=== PATIENT | female | born 2000 | race Two or more races ===

== ENCOUNTER 2024-10-29 21:12 | Emergency (ER) | payer MEDICAID, SELFPAY ==
[2024-10-29 21:12] VITALS: BMI 44.6
[2024-10-29 21:29] VITALS: BP 152/90; PULSE 92; RESP 18; TEMP 37.7; O2SAT 96
--- NOTE | 2024-10-29 21:31 | XR_ITS ---
Examination: PA lateral chest 2 views Technique: Upright PA lateral chest 2 views Exam date and time: October 29, 2024 2150 hrs. Comparison April 10, 2022 Indications: Chest pain today. Findings: Normal heart size Suspicious for early pneumonia left base No pulmonary edema Impression: Suspicious for early pneumonia left base
--- NOTE | 2024-10-29 21:31 | PD.EDRME ---
Rapid Medical Screening Exam RME Arrival date/time: 10/29/24 21:12 24 year old female preent to ED for c/o of chest/arm pain for 1 day I have greeted and performed a focused initial assessment of this patient. A comprehensive ED assessment and evaluation of the patient, analysis of all test results, and completion of the medical decision making process will be conducted by additional ED providers. Chief Complaint: Extremity Problem,Nontraumatic Time Seen by Provider: 10/29/24 21:29 Vital signs: Vital Signs Temperature 100 F 10/29/24 21:29 Pulse Rate 92 10/29/24 21:29 Respiratory Rate 18 10/29/24 21:29 Blood Pressure 152/90 H 10/29/24 21:29 Pulse Oximetry (%) 96 10/29/24 21:29 Oxygen Delivery Method Room Air 10/29/24 21:29
[2024-10-29 22:21] LABS: Basophils # (Auto) 0.1 Thou/mm3 (0.0-0.2); Basophils % (Auto) 1 % (0-2.5); Eosinophils # (Auto) 0.2 Thou/mm3 (0.0-0.5); Eosinophils % (Auto) 1 % (0-10); Hematocrit 38.6 % (36.0-46.0); Hemoglobin 13.1 g/dL (12.0-16.0); Immature Granulocytes % (Auto) 0 % (0-0); Immature Granulocytes Auto 0.04 Thou/mm3 (0.00-0.00); Lymphocytes # (Auto) 2.4 Thou/mm3 (1.0-4.8); Lymphocytes % (Auto) 20 % (10-50); Mean Corpuscular HGB Conc 33.9 g/dl (31.0-37.0); Mean Corpuscular Hemoglobin 27.8 pg (25.0-35.0); Mean Corpuscular Volume 82 fL (80-100); Monocytes # (Auto) 1.3 Thou/mm3 (0.0-0.8); Monocytes % (Auto) 10 % (0-12); Neutrophils # (Auto) 8.2 Thou/mm3 (1.8-7.7); Neutrophils % (Auto) 68 % (37-80); Nucleated Red Blood Cell % 0 /100 WBC (0); Platelet Count 223 Thou/mm3 (140-440); RDW Standard Deviation 37.6 fL (36.4-46.3); Red Blood Count 4.71 Miln/mm3 (4.00-5.20); White Blood Count 12.1 Thou/mm3 (3.6-11.0)
[2024-10-29 22:31] LABS: Sed Rate (ESR) 51 mm/hr (0-20)
[2024-10-29 22:41] LABS: HCG,Qualitative Serum Negative
[2024-10-29 22:54] LABS: Alanine Aminotransferase 44 U/L (10-49); Albumin, Serum 4.3 gm/dL (3.5-5.0); Albumin/Globulin Ratio 1.3 (1.2-2.2); Alkaline Phosphatase 58 U/L (46-116); Anion Gap 8 (7-16); Aspartate Amino Transferase 25 U/L (0-34); BUN/Creatinine Ratio 16 Ratio (12-20); Bilirubin,Total 0.5 mg/dL (0.3-1.2); Blood Urea Nitrogen 13 mg/dL (9-23); Calcium 9.9 mg/dL (8.3-10.6); Calcium (Corrected) 9.9 mg/dL (8.5-10.1); Carbon Dioxide 25.6 mMol/L (20.0-31.0); Chloride 102 mMol/L (98-107); Creatinine (Component) 0.8 mg/dL (0.6-1.3); Estimated Creatinine Clearance 136.9 mL/min (>60); Globulin 3.4 gm/dL (2.3-3.5); Glucose 114 mg/dL (74-106); Lipase 58 U/L (12-53); Osmolality,Calculated 273 (275-295); Potassium 3.7 mMol/L (3.4-5.1); Sodium 136 mMol/L (136-145); Total Protein 7.7 gm/dL (5.7-8.2); Troponin I < 0.002 ng/mL (0.0-0.045); eGFR > 60 See Note
[2024-10-29 23:56] VITALS: BP 135/78; PULSE 94; RESP 19; TEMP 37.6; O2SAT 99
--- NOTE | 2024-10-30 00:31 | EDNOTE_ITS ---
ED Extremity Problem RME/HPI General Chief complaint: Extremity Problem,Nontraumatic Stated complaint: L ARM RIB PAIN X 2 DAYS Time Seen by Provider: 10/29/24 21:29 Arrival date/time: 10/29/24 21:12 Limitations: no limitations RME / HPI RME / HPI Narrative: 10/29/24 21:12 24 year old female preent to ED for c/o of chest/arm pain for 1 day I have greeted and performed a focused initial assessment of this patient. A comprehensive ED assessment and evaluation of the patient, analysis of all test results, and completion of the medical decision making process will be conducted by additional ED providers. ------- Dr. Montenegro's Main ED Evaluation: 24yo female presents to the ED for a chief complaint of left-sided chest pain x 1 day. Patient states the pain radiates to her left arm. She denies any cough, fever, chills, shortness of breath or any other associated symptoms. She denies any possibility of being . She denies being on control. No known allergies. Related Data Home Medications ?Medication ?Instructions ?Recorded ?Confirmed vits no.124-ferrous fum 1 tab PO QDAY 11/04/19 02/04/21 27 mg iron-folic acid 800 mcg tablet ( Vitamin) Previous Rx's ?Medication ?Instructions ?Recorded acetaminophen 650 mg 650 mg PO Q8H PRN pain #14 tabs 02/06/21 tablet,extended release (Tylenol 8 Hour) hydrocodone 5 mg-acetaminophen 325 1 tab PO Q8H PRN pain #7 tabs 02/06/21 mg tablet apixaban 5 mg (74 tabs) tablets in 5 mg PO BID #74 tabs 10/30/24 a dose pack (Eliquis DVT-PE Treat 30D Start) Allergies Allergy/AdvReac Type Severity Reaction Status Date / Time No Known Allergies Allergy Verified 04/10/22 16:59 Review of Systems Review of Systems Systems Reviewed: All systems reviewed, normal except as documented ED Exam General Limitations: Present no limitations General appearance: Present alert and in no apparent distress Head Head exam: Present atraumatic Eye Eye exam: Present normal appearance, PERRL and EOMI ENT ENT exam: Present normal exam, normal oropharynx and mucous membranes moist Neck Neck exam: Present normal inspection, full ROM and trachea midline Chest Chest inspection: Present normal inspection and symmetric chest wall rise Respiratory Respiratory exam: Present normal lung sounds bilaterally; Absent wheezes Cardiovascular Cardiovascular exam: Present regular rate, normal rhythm and normal heart sounds Abdominal Exam Abdominal exam: Present soft and normal bowel sounds Extremities Exam Extremities exam: Present normal inspection and full ROM Back Exam Back exam: Present normal inspection and full ROM Neurological Exam Neurological exam: Present alert, oriented X3 and CN II-XII intact Psychiatric Psychiatric exam: Present normal affect and normal mood Skin Skin exam: Present warm, dry, intact and normal color Course Course Course Narrative: CXR is ordered for determining the etiology of chest pain. Quality Measures none Orders Category Date Time Status Bedside COVID-19 Antigen Test NOW Care 10/30/24 01:[address] Screening NOW Care 10/30/24 00:31 Completed Insert IV STAT Care 10/30/24 00:[address] angio chest Stat Exams 10/30/24 00:31 Taken XR chest 2V Stat Exams 10/29/24 21:31 Completed CBC Stat Lab 10/29/24 22:06 Completed CMP [Comprehensive Metabolic Panel] Stat Lab 10/29/24 22:06 Completed CRP [C-Reactive Protein] Stat Lab 10/29/24 22:06 Completed ESR [Sed Rate (ESR)] Stat Lab 10/29/24 22:06 Completed HCG,Qualitative Serum Stat Lab 10/29/24 22:06 Completed Lipase Stat Lab 10/29/24 22:06 Completed PT [Prothrombin Time with INR] Stat Lab 10/30/24 00:41 Completed PTT [Partial Thromboplastin Time] Stat Lab 10/30/24 00:41 Completed Troponin I Stat Lab 10/29/24 22:06 Completed Troponin I Stat Lab 10/30/24 00:41 Completed Acetaminophen Tab [Tylenol Tab] Med 10/30/24 01:57 Discontinued 975 mg PO X1 ONE Apixaban [Eliquis] Med 10/30/24 01:52 Discontinued 10 mg PO X1 ONE Vital Signs Vital signs: Vital Signs Temperature 100 F 10/29/24 21:29 Pulse Rate 92 10/29/24 21:29 Respiratory Rate 18 10/29/24 21:29 Blood Pressure 152/90 H 10/29/24 21:29 Pulse Oximetry (%) 96 10/29/24 21:29 Oxygen Delivery Method Room Air 10/29/24 21:29 Pulse ox is 96% on room air, which is normal according to my interpretation. Extremity Problem MDM Narrative MDM Narrative:: Differential diagnosis close PE, pulmonary infarct, pneumonia, pleural effusion. Patient data External records reviewed:: [facility] previous records (Per chart review, patient has no relevant previous ED visits.) Clinical information provided by:: patient Social determinants that could affect healthcare access:: none Patient has the following chronic illnesses:: none How is presenting disease/condition affected by chronic disease/condition?: no chronic disease Evaluation data The following diagnostics were reviewed and interpreted by me:: lab results and radiology exam(s) Lab and/or radiology exams considered but not ordered:: none Interpretation Summary: WBC count is elevated at 12.1, CMP is normal, Troponin is negative, HCG is negative, according to my interpretation. ----- [facility] Report Signed Patient: CARLITOS CÁRDENAS Record#: [id number] Birthdate: 2000 Age/Sex: 24 / F Location: [facility] Attending Dr: Ordering Physician: Teodoro Colon PA-C Date of Service: 10/29/24 Procedure(s): XR chest 2V Accession Number(s): [id number] cc: Obed Stanford MD; Thierno Alonso MD; Teodoro Colon PA-C~ Examination: PA lateral chest 2 views Technique: Upright PA lateral chest 2 views Exam date and time: October 29, 2024 2150 hrs. Comparison April 10, 2022 Indications: Chest pain today. Findings: Normal heart size Suspicious for early pneumonia left base No pulmonary edema Impression: Suspicious for early pneumonia left base Dictated By: Thierno Alonso MD Signed By: <Electronically signed by Thierno Alonso MD in OV> 10/29/24 2256 ------ [facility] Preliminary Report Draft Patient: CARLITOS CÁRDENAS [facility]. Record#: [id number] Birthdate: 2000 Age/Sex: 24 / F Location: [facility] Attending Dr: Ordering Physician: Date of Service: Procedure(s): Accession Number(s): cc: ~ CT angiogram of the chest with intravenous contrast (axial sections with sagittal and coronal reformats) October 30, 2024 at 0049 hours Clinical History: 24-year-old with pleuritic chest pain. Technique:Helical axial sections with sagittal and coronal reformats of the chest were obtained with intravenous contrast. Iterative reconstruction technique was employed to reduce patient radiation exposure. MIP reconstructed images were also provided. Comparison: None available at the time of this report. Findings: Pulmonary emboli in the subsegmental branches of the left lower lobe pulmonary artery. The left ventricle measures 3.9 cm, the right ventricle measures 3.7 cm. Dilated left atrium. The mediastinum demonstrates no evidence of mass or lymphadenopathy. The thoracic aorta is unremarkable. There is no pericardial effusion. Consolidation in the left lower lobe. No evidence of pleural effusion or pneumothorax. The osseous structures are unremarkable. Liver steatosis. Impression: 1. Pulmonary emboli in the subsegmental branches of the left lower lobe pulmonary artery without CT evidence of increased pulmonary pressures. 2. Left lower lobe consolidation, infarct versus pneumonia. 3. Dilated left atrium. 4. Liver steatosis. Discussion Details: Results verbally communicated to : Dr. Martinez at 01:18 AM 10/30/2024 Report Electronically Signed By: Claudio Coombs 10/30/2024 1:24:55 AM [EST] Medications / Prescriptions Medications or Prescriptions considered but not ordered:: none Medication administrations:: Medication Administration History Discontinued Medications Acetaminophen (Acetaminophen 325 Mg Tablet) 975 mg PO X1 ONE Stop: 10/30/24 01:58 Last Admin: 10/30/24 02:04 Dose: 975 mg Documented By: WAQAS Apixaban (Apixaban 2.5 Mg Tablet) 10 mg PO X1 ONE Stop: 10/30/24 01:53 Last Admin: 10/30/24 02:04 Dose: 10 mg Documented By: WAQAS see above, if any Consultations Consultation(s) initiated? (list below): No Consultation #1 (Physician, Specialty, Details): na Diagnosis Extremity Problem Differential Diagnosis: other Most likely diagnosis given after review of the tests above:: see below Admission Indicated Admission indicated?: not indicated Explain why admission is indicated or not indicated:: Hemodynamically stable Admission Request Was there a request for admission?: No Disposition Plan Disposition Plan: Discharge Discharge Attestation Discharge Attestation: The patient and all family members were given an opportunity to ask questions and understood the discharge instructions. Discharge instructions specifically effects, indications for sooner follow up or return to the emergency department, and the expected course of current diagnosis. Patient condition: Stable Discharge Plan Plan Patient Disposition: HOME (Self Care) Patient condition on transfer: Stable Prescriptions/Referrals Prescriptions/Med Rec: Ricco Rm DVT-PE Treat 30D Start 5 mg (74 tabs) tablets,dose pack 5 mg PO BID Qty: 74 0RF No Action Vitamin 27 mg iron- 800 mcg Tablet 1 tab PO QDAY hydrocodone-acetaminophen 5-325 mg tablet 1 tab PO Q8H MDD 3 PRN (Reason: pain) Qty: 7 0RF acetaminophen [Tylenol 8 Hour] 650 mg tablet extended release 650 mg PO Q8H MDD 4 PRN (Reason: pain) Qty: 14 0RF Referrals: Obed Stanford MD [Primary Care Provider] - 11/01/24 Problem List Clinical Impression: Pulmonary embolism Patient/Caregiver Discharge Instructions Education Materials: Embolism Pulmonary Dc Additional Instructions: Will need to stop the control pills since this will continue to put her at risk for continued clots. No smoking. You want to avoid any type of nonsteroidal or Aleve, Motrin, ibuprofen, or Naprosyn, while you are on the blood thinner. Return tomorrow at 11 AM to the emergency department if you are unable to fill your blood thinner medication at the pharmacy so that you can get your next dose in 12 hours. Return sooner if you are having increasing pain, shortness of breath, worsening symptoms, or any other concerns. See your doctor next 48 to 72 hours. If you cannot get into your primary care's office you can follow-up at the resident internal medicine clinic at [facility] [address] the phone number is [phone]. You will need to be on this medication for the next 3 to 6 months so please follow-up with your primary care physician so that you get your next months prescription. Print Language: Upper Sorbian Stand Alone Forms: [facility] Award Info., Patient Portal Info Letter
--- NOTE | 2024-10-30 00:31 | XR_ITS ---
Examination: CTA chest with intravenous contrast 2-D reconstructions 3-D reconstructions, vascular Date and time of exam: October 30, 2024 0049 hrs. Indications: Onset chest pain left rib pain beginning yesterday CTDI: vol (mGy) 32 DLP: (mGycm) 504 Technique: Multiple axial sections of the thorax have been obtained. 3 mm slice thickness, from below the hemidiaphragms to above the apices of the lungs. Mediastinal and lung density settings have been obtained. 2-D sagittal and coronal reconstructions. 3-D angiographic renderings, 3-D volume renderings, 3D post processing, vascular maximum intensity projections obtained. Contrast administered is 100 cc Isovue-370 intravenous. Low dose protocols were performed. One or more of the following dose reduction techniques were used; automated exposure control, adjustment of the mA and/or KV according to patient size, use of iterative reconstruction technique. Findings: No thoracic aortic aneurysmal dilatation Left lower lobe pulmonary artery emboli, for instance axial image 93 Mild enlargement left atrium left ventricle Pneumonia versus pulmonary infarct left base Diffuse fatty liver liver mildly irregular in contour No gallstones Spleen not enlarged No pancreatic mass Impression: Positive for pulmonary artery emboli left lower lobe Pneumonia versus pulmonary infarct left base
[2024-10-30 01:15] LABS: Partial Thromboplastin Time 29.3 Seconds (22.0-36.0); Prothrombin Time 11.2 Seconds (9.0-12.2)
[2024-10-30 01:17] LABS: Troponin I < 0.002 ng/mL (0.0-0.045)
--- NOTE | 2024-10-30 01:25 | PRELIM_ITS ---
CT angiogram of the chest with intravenous contrast (axial sections with sagittal and coronal reforma ts) October 30, 2024 at 0049 hours Clinical History: 24-year-old with pleuritic chest pain. Techniqu e:Helical axial sections with sagittal and coronal reformats of the chest were obtained with intraven ous contrast. Iterative reconstruction technique was employed to reduce patient radiation exposure. MIP reconstructed images were also provided. Comparison: None available at the time of this report.Fi ndings:Pulmonary emboli in the subsegmental branches of the left lower lobe pulmonary artery.The left ventricle measures 3.9 cm, the right ventricle measures 3.7 cm.Dilated left atrium.The mediastinum d emonstrates no evidence of mass or lymphadenopathy. The thoracic aorta is unremarkable. There is no p ericardial effusion. Consolidation in the left lower lobe. No evidence of pleural effusion or pneumot horax.The osseous structures are unremarkable.Liver steatosis.Impression:1. Pulmonary emboli in the s ubsegmental branches of the left lower lobe pulmonary artery without CT evidence of increased pulmona ry pressures.2. Left lower lobe consolidation, infarct versus pneumonia.3. Dilated left atrium.4. Mely er steatosis.Discussion Details: Results verbally communicated to : Dr. Martinez at 01:18 AM 024 Report Electronically Signed By: Claudio Coombs 10/30/2024 1:24:55 AM [EST]
[2024-10-30 01:51] VITALS: BP 140/81; PULSE 98; RESP 18; TEMP 37.4; O2SAT 100
[2024-10-30 01:57] LABS: C-Reactive Protein 8.3 mg/dL (0.0-0.9)
[2024-10-30] MEDS: APIXABAN 2.5 MG TABLET 10 MG PO (02:04)
[2024-10-30] MEDS: ACETAMINOPHEN 325 MG TABLET 975 MG PO (02:04)
== END 2024-10-30 02:17 | disposition home or self-care (01) ==
PROVIDERS: Physician Assistant; Emergency Provider Emergency Medicine; PCP Family Medicine
DX: I26.99 Other pulmonary embolism without acute cor pulmonale (principal); I51.7 Cardiomegaly; K76.0 Fatty (change of) liver, not elsewhere classified; Z79.01 Long term (current) use of anticoagulants
CPT/HCPCS: 36415; 71046; 71275; 80053; 83690; 84484; 84703; 85025; 85610; 85652; 85730; 86140; 87811; 99285; A4649; Q9967; A9270

== ENCOUNTER 2025-01-30 05:52 | Emergency (ER) | payer MEDICAID, SELFPAY ==
[2025-01-30 05:53] VITALS: BMI 44.6
[2025-01-30 06:05] VITALS: BP 152/75; PULSE 95; RESP 17; TEMP 36.8; O2SAT 99
--- NOTE | 2025-01-30 06:17 | PD.EDRME ---
Rapid Medical Screening Exam RME Arrival date/time: 01/30/25 05:52 24-year-old female currently on Eliquis for a PE presents for concerns of rectal bleeding x 3 weeks Chief Complaint: Urogenital-Female Time Seen by Provider: 01/30/25 06:10 Vital signs: Vital Signs Temperature 98.2 F 01/30/25 06:05 Pulse Rate 95 01/30/25 06:05 Respiratory Rate 17 01/30/25 06:05 Blood Pressure 152/75 H 01/30/25 06:05 Pulse Oximetry (%) 99 01/30/25 06:05 Oxygen Delivery Method Room Air 01/30/25 06:05
[2025-01-30 06:33] LABS: Basophils # (Auto) 0.1 Thou/mm3 (0.0-0.2); Basophils % (Auto) 1 % (0-2.5); Eosinophils # (Auto) 0.2 Thou/mm3 (0.0-0.5); Eosinophils % (Auto) 3 % (0-10); Hematocrit 43.6 % (36.0-46.0); Hemoglobin 14.4 g/dL (12.0-16.0); Immature Granulocytes % (Auto) 0 % (0-0); Immature Granulocytes Auto 0.01 Thou/mm3 (0.00-0.00); Lymphocytes # (Auto) 2.3 Thou/mm3 (1.0-4.8); Lymphocytes % (Auto) 27 % (10-50); Mean Corpuscular Hemoglobin 27.5 pg (25.0-35.0); Mean Corpuscular Volume 83 fL (80-100); Monocytes # (Auto) 0.6 Thou/mm3 (0.0-0.8); Monocytes % (Auto) 7 % (0-12); Neutrophils # (Auto) 5.2 Thou/mm3 (1.8-7.7); Neutrophils % (Auto) 62 % (37-80); Nucleated Red Blood Cell % 0 /100 WBC (0); Platelet Count 278 Thou/mm3 (140-440); RDW Standard Deviation 40.4 fL (36.4-46.3); Red Blood Count 5.23 Miln/mm3 (4.00-5.20); White Blood Count 8.4 Thou/mm3 (3.6-11.0)
[2025-01-30 06:47] LABS: Partial Thromboplastin Time 29.9 Seconds (22.0-36.0)
[2025-01-30 06:52] LABS: Alanine Aminotransferase 34 U/L (10-49); Albumin, Serum 4.2 gm/dL (3.5-5.0); Albumin/Globulin Ratio 1.3 (1.2-2.2); Alkaline Phosphatase 61 U/L (46-116); Anion Gap 9 (7-16); Aspartate Amino Transferase 26 U/L (0-34); BUN/Creatinine Ratio 16 Ratio (12-20); Bilirubin,Total 0.5 mg/dL (0.3-1.2); Blood Urea Nitrogen 11 mg/dL (9-23); Calcium 9.3 mg/dL (8.3-10.6); Calcium (Corrected) 9.3 mg/dL (8.5-10.1); Carbon Dioxide 23.6 mMol/L (20.0-31.0); Chloride 105 mMol/L (98-107); Creatinine (Component) 0.7 mg/dL (0.6-1.3); Estimated Creatinine Clearance 156.5 mL/min (>60); Globulin 3.2 gm/dL (2.3-3.5); Glucose 113 mg/dL (74-106); Lipase 48 U/L (12-53); Osmolality,Calculated 276 (275-295); Potassium 3.8 mMol/L (3.4-5.1); Sodium 138 mMol/L (136-145); Total Protein 7.4 gm/dL (5.7-8.2); eGFR > 60 See Note
[2025-01-30 07:32] LABS: Collection Type, Urine Clean Catch
--- NOTE | 2025-01-30 07:43 | PC.NURSE ---
Patient presents to ER with complaint of rectal bleeding / pain x 3 wks. States pain is 9/10 and especially painful after getting up from sitting down. Hx of pulmonary embolism in October and is currently prescribed Eliquis.
[2025-01-30 07:53] VITALS: BP 112/82; PULSE 85; RESP 18; TEMP 36.9; O2SAT 95
--- NOTE | 2025-01-30 07:59 | PD.EDADULT ---
ED General RME/HPI General Chief complaint: Urogenital-Female Stated complaint: RECTAL BLEEDING Time Seen by Provider: 01/30/25 06:10 Arrival date/time: 01/30/25 05:52 Limitations: no limitations RME / HPI RME / HPI narrative: 01/30/25 05:52 24-year-old female currently on Eliquis for a PE presents for concerns of rectal bleeding x [address] GROVES MAIN ED EVALUATION: 24 year old female with history of PE (dx 10/2024) on Eliquis presents to the ED for evaluation of rectal bleeding and pain beginning 3 weeks ago. Rectal pain described as dull aching in sensation without known modifying factors, rating as mild. States the bleeding is light and only present while wiping, occurring with every bowel movement since onset. Denies there being any blood in toilet bowl or stool. Denies any history of hemorrhoids. Denies any dizziness, light headed sensation, shortness of breath, abdominal pain, or other associated symptoms. Patient mentioned she has consulted with PCP who performed xray's and told there were no acute findings. Hx of previous pregnancies, x2, . Related Data Home Medications ?Medication ?Instructions ?Recorded ?Confirmed vits no.124-ferrous fum 1 tab PO QDAY 11/04/19 02/04/21 27 mg iron-folic acid 800 mcg tablet ( Vitamin) Previous Rx's ?Medication ?Instructions ?Recorded acetaminophen 650 mg 650 mg PO Q8H PRN pain #14 tabs 02/06/21 tablet,extended release (Tylenol 8 Hour) hydrocodone 5 mg-acetaminophen 325 1 tab PO Q8H PRN pain #7 tabs 02/06/21 mg tablet apixaban 5 mg (74 tabs) tablets in 5 mg PO BID #74 tabs 10/30/24 a dose pack (Eliquis DVT-PE Treat 30D Start) Allergies Allergy/AdvReac Type Severity Reaction Status Date / Time No Known Allergies Allergy Verified 04/10/22 16:59 Review of Systems Review of Systems Narrative Review of Systems: GEN: No fever, no chills, no weight loss EYES: No discharge, no visual changes, no pain HEENT: No ear pain, no congestion, no sore throat PULM: No shortness of breath, no cough, no congestion CV: No chest pain, no dyspnea on exertion, no palpitations GI: No nausea, no vomiting, no diarrhea, no pain, no constipation, +rectal bleeding and pain : No frequency, no urgency, no dysuria MUSC/SKEL: No joint pain, no back pain SKIN: No rash HEME/LYMPH: On anticoagulation therapy NEURO: No weakness, no headache Past Medical History Past Medical History CARDIAC: Positive Hypertension RESPIRATORY: Positive Respiratory Disorders and Pulmonary Embolism (on eliquis) GASTROINTESTINAL: Positive Gastrointestinal Disorders and Gastrointestinal Bleed (bleeding from rectum) REPRODUCTIVE: Positive Previous Pregnancies OTHER HISTORY: Positive Hospitalization Surgical History SURGICAL: Positive Section Social History SMOKING STATUS: Never smoker ED Exam General Limitations: Present no limitations General appearance: Present alert, in no apparent distress and obese Head Head exam: Present atraumatic, normocephalic and normal inspection Eye Eye exam: Present normal appearance and EOMI ENT ENT exam: Present normal exam and normal oropharynx Neck Neck exam: Present normal inspection Chest Chest inspection: Present normal inspection and symmetric chest wall rise Respiratory Respiratory exam: Present normal lung sounds bilaterally Cardiovascular Cardiovascular exam: Present regular rate, normal rhythm and normal heart sounds Abdominal Exam Abdominal exam: Present soft and normal bowel sounds Rectal Exam Rectal exam: Present other (anal bridge without lesions, digital exam was not performed. There was bleeding from the vaginal area, dark red and a mild amount (patient states she is on her period) ) Extremities Exam Extremities exam: Present normal inspection and full ROM Back Exam Back exam: Present normal inspection and full ROM Neurological Exam Neurological exam: Present alert, oriented X3 and CN II-XII intact Psychiatric Psychiatric exam: Present normal affect and normal mood Skin Skin exam: Present warm, dry, intact and normal color Course Quality Measures none Orders Category Date Time Status CBC Stat Lab 01/30/25 06:27 Completed Comprehensive Metabolic Panel Stat Lab 01/30/25 06:27 Completed HCG Qualitative,Urine Stat Lab 01/30/25 06:45 Completed Lipase Stat Lab 01/30/25 06:27 Completed Partial Thromboplastin Time Stat Lab 01/30/25 06:27 Completed Prothrombin Time with INR Stat Lab 01/30/25 06:27 Completed UA, C/S IF [Urinalysis, C/S if Indicated] Stat Lab 01/30/25 06:45 Completed Vital Signs Vital signs: Vital Signs Temperature 98.2 F 01/30/25 06:05 Pulse Rate 95 01/30/25 06:05 Respiratory Rate 17 01/30/25 06:05 Blood Pressure 152/75 H 01/30/25 06:05 Pulse Oximetry (%) 99 01/30/25 06:05 Oxygen Delivery Method Room Air 01/30/25 06:05 Pulse ox is 99% on room air which is adequate. [facility] Patient data External records reviewed:: [facility] previous records (I reviewed ED visit on 10/30/2024 ) Clinical information provided by:: patient Social determinants that could affect healthcare access:: none Patient has the following chronic illnesses:: PE (dx 10/2024) on Eliquis How is presenting disease/condition affected by chronic disease/condition?: uneffected by Evaluation data The following diagnostics were reviewed and interpreted by me:: lab results Lab and/or radiology exams considered but not ordered:: None Interpretation Summary: H/H 14.4/43/6 PT/PTT within normal range Medications Medications considered but not ordered:: None Medication administrations:: None Consultations Consultation(s) initiated? (list below): No Diagnosis Differential Diagnosis ED Complaint MDM: rectal bleeding, anal fisure, hemorroids, GIB Most likely diagnosis given after review of the tests above:: Rectal bleeding Admission Indicated Admission indicated?: not indicated Explain why admission is indicated or not indicated:: Patient does not meet admission criteria Admission Request Was there a request for admission?: No Disposition Plan Disposition Plan: Discharge Discharge Attestation Discharge Attestation: The patient and all family members were given an opportunity to ask questions and understood the discharge instructions. Discharge instructions specifically effects, indications for sooner follow up or return to the emergency department, and the expected course of current diagnosis. Patient condition: Stable Medical Decision Making [facility] Narrative MDM Narrative: Patient is a 24 year old female with history of pulmonary embolism that was diagnosed 10/2024 and currently on Eliquis. She presented to the ED for rectal bleeding beginning 3 weeks ago. Reported the amount of bleeding is light, present with every bowel movement and only noted to be on the toilet paper while wiping. CBC, CMP, PT/PTT, UA were performed. H/H and PT/PTT are within normal limits. UA shows 1,047 RBC that is due to her vaginal bleeding. Given the normal hemoglobin and few episodes of rectal bleeding though we could not see he cause, will have the patient continue her Eliquis. It may be possible there are internal hemorrhoids or fisures. I advised the patient follow up with her PCP for further evaluation and possible GI work up. Patient is in agreement with plan. Differential Diagnosis Differential Diagnosis: rectal bleeding, anal fisure, hemorroids, GIB Lab Data 01/30/25 06:27 01/30/25 06:27 Labs: Lab Results 01/30/25 01/30/25 Range/Units 06:27 06:45 WBC 8.4 (3.6-11.0) Thou/mm3 RBC 5.23 H (4.00-5.20) Miln/mm3 Hgb 14.4 (12.0-16.0) g/dL Hct 43.6 (36.0-46.0) % MCV 83 (80-100) fL MCH 27.5 (25.0-35.0) pg MCHC 33.0 (31.0-37.0) g/dl RDW Std Deviation 40.4 (36.4-46.3) fL Plt Count 278 (140-440) Thou/mm3 Neut % (Auto) 62 (37-80) % Lymph % (Auto) 27 (10-50) % [place] % (Auto) 7 (0-12) % Eos % (Auto) 3 (0-10) % Baso % (Auto) 1 (0-2.5) % Neut # (Auto) 5.2 (1.8-7.7) Thou/mm3 Lymph # (Auto) 2.3 (1.0-4.8) Thou/mm3 [place] # (Auto) 0.6 (0.0-0.8) Thou/mm3 Eos # (Auto) 0.2 (0.0-0.5) Thou/mm3 Baso # (Auto) 0.1 (0.0-0.2) Thou/mm3 Immature Gran # (Auto) 0.01 H (0.00-0.00) Thou/mm3 Absolute Nucleated RBC 0.00 (0.00-0.00) Thou/mm3 Immature Gran % 0 (0-0) % Nucleated RBC % 0 (0) /100 WBC PT 11.0 (9.0-12.2) Seconds INR 1.0 (0.9-1.3) APTT 29.9 (22.0-36.0) Seconds Sodium 138 (136-145) mMol/L Potassium 3.8 (3.4-5.1) mMol/L Chloride 105 (98-107) mMol/L Carbon Dioxide 23.6 (20.0-31.0) mMol/L Anion Gap 9 (7-16) BUN 11 (9-23) mg/dL Creatinine 0.7 (0.6-1.3) mg/dL Estim Creat Clear Calc 156.5 (>60) mL/min eGFR > 60 (60 - ) See Note BUN/Creatinine Ratio 16 (12-20) Ratio Glucose 113 H (74-106) mg/dL Calculated Osmolality 276 (275-295) Calcium 9.3 (8.3-10.6) mg/dL Corrected Calcium 9.3 (8.5-10.1) mg/dL Total Bilirubin 0.5 (0.3-1.2) mg/dL AST 26 (0-34) U/L ALT 34 (10-49) U/L Alkaline Phosphatase 61 (46-116) U/L Total Protein 7.4 (5.7-8.2) gm/dL Albumin 4.2 (3.5-5.0) gm/dL Globulin 3.2 (2.3-3.5) gm/dL Albumin/Globulin Ratio 1.3 (1.2-2.2) Lipase 48 (12-53) U/L Ur Collection Type Clean Catch Urine Color [place] (Lt Yel-Yel) Urine Clarity Turbid A (Clear/Hazy) Urine pH 5.5 (5.0-7.0) Ur Specific [place] 1.024 (1.001-1.035) Urine Protein 1+ A (Neg - Trace) Urine Glucose (UA) Negative (Negative) Urine Ketones Negative (Negative) Urine Blood 3+ A (Negative) Urine Nitrite Negative (Negative) Urine Bilirubin Negative (Negative) Urine Urobilinogen (Auto) Negative (0.0-1.0) mg/dL Ur Leukocyte Esterase Negative (Negative) Urine RBC 1047 H (0-3) /hpf Urine WBC 8 H (0-5) /hpf Ur Squamous Epith Cells 2 (0-5) /hpf Urine Bacteria Rare (None) Ur Culture Indicated? Not Indicated Urine HCG, Qual Negative Discharge Plan Plan Patient Disposition: HOME (Self Care) Prescriptions/Referrals Prescriptions/Med Rec: No Action Vitamin 27 mg iron- 800 mcg Tablet 1 tab PO QDAY hydrocodone-acetaminophen 5-325 mg tablet 1 tab PO Q8H MDD 3 PRN (Reason: pain) Qty: 7 0RF acetaminophen [Tylenol 8 Hour] 650 mg tablet extended release 650 mg PO Q8H MDD 4 PRN (Reason: pain) Qty: 14 0RF Eliquis DVT-PE Treat 30D Start 5 mg (74 tabs) tablets,dose pack 5 mg PO BID Qty: 74 0RF Referrals: Obed Stanford MD [Primary Care Provider] - In 1 week Problem List Clinical Impression: Rectal bleeding Patient/Caregiver Discharge Instructions Education Materials: Understanding Rectal Bleeding Additional Instructions: Follow up with your PCP within 1-2 days for further evaluation and consider a GI work-up. Return if your symptoms worsen. Print Language: French Stand Alone Forms: Le[facility] Award Info., Patient Portal Info Letter
[2025-01-30 08:06] LABS: Bacteria,Urine Rare; Bilirubin,Urine Negative (Negative); Blood,Urine 3+ (Negative); Clarity,Urine Turbid (Clear/Hazy); Culture Indicated,Urine Not Indicated; Glucose, Urine Negative (Negative); HCG Qualitative,Urine Negative; Ketones,Urine Negative (Negative); Leukocyte Esterase,Urine Negative (Negative); Nitrite,Urine Negative (Negative); PH,Urine 5.5 (5.0-7.0); Protein,Urine 1+ (Neg - Trace); RBC,Urine 1047 /hpf (0-3); Specific Gravity,Urine 1.024 (1.001-1.035); Squamous Epithelial Cell,Urine 2 /hpf (0-5); Urobilinogen,Urine Negative mg/dL (0.0-1.0); WBC,Urine 8 /hpf (0-5)
[2025-01-30 08:37] LABS: Color,Urine Amber (Lt Yel-Yel)
[2025-01-30 09:00] VITALS: BP 144/95; PULSE 80; RESP 16; TEMP 36.9; O2SAT 97
[2025-01-30 09:12] VITALS: BP 144/95; PULSE 80; RESP 16; TEMP 36.9; O2SAT 97
== END 2025-01-30 09:12 | disposition home or self-care (01) ==
PROVIDERS: Nurse Practitioner Primary Care; Emergency Provider Family Medicine; PCP Family Medicine
DX: K62.5 Hemorrhage of anus and rectum (principal); Z86.711 Personal history of pulmonary embolism
CPT/HCPCS: 36415; 80053; 81001; 81025; 83690; 85025; 85610; 85730; 99283

== ENCOUNTER 2025-03-19 14:53 | Outpatient (AMB) | payer MEDICAID, SELFPAY ==
[2025-03-19 15:07] VITALS: BP 128/84; PULSE 96; RESP 18; TEMP 36.8; O2SAT 97; BMI 45.0
--- NOTE | 2025-03-19 15:07 | OBCLNT_ITS ---
Vital Signs 03/19/25 15:07 Height 1.63 m Height Method Stated Weight 119.068 kg Weight Measurement Method Standing Scale BMI 45.0 BP 128/84 Blood Pressure Source Automatic Cuff Blood Pressure Location Left Upper Arm Position Sitting Respiration 18 Pulse 96 Pulse Source Monitor Temp 98.2 F Temp Source Oral Pulse Oximetry (%) 97 Oxygen Delivery Method Room Air Allergies/Home Meds Allergies & Medications Allergies No Known Allergies Allergy (Verified 03/19/25 15:09) Medication Reconciliation acetaminophen 650 mg tablet,extended release (Tylenol 8 Hour) 650 mg PO Q8H PRN pain #14 tabs 02/06/21 [Rx] apixaban 5 mg (74 tabs) tablets in a dose pack (Eliquis DVT-PE Treat 30D Start) 5 mg PO BID #74 tabs 10/30/24 [Rx Confirmed 03/19/25] Intake Visit Data Collection New Patient or Established: Established Patient (seen at [facility] within 3 years) Reason for Visit:: INITIAL CARE Seen by Clinical Staff ONLY (RN/MA): No Attending Psychiatrist Required: No Do You Feel Safe at Home: Yes Authorities Contacted: N/A PCP or OBGYN visit in last 3 months: Yes Hx Now: Yes Are you currently on any form of Control: No Last menstrual period: 03/29/25 Pain Present Currently: No Pain Scale Used: [place]/Numerical Pain scale:: 0 Smoking Status Smoking Status: Never smoker Questionnaires Covid-19 Vaccine Questionnaire Has patient been vacinated for Covid-19 Have you been vacinated for Covid-19: Yes PHQ-9 PHQ-2 Over the last 2 weeks, how often have you been bothered by any of the following problems? 1. Little interest or pleasure in doing things: not at all 2. Feeling down, depressed, or hopeless: not at all Total score: 0 PHQ-9 3. Trouble falling or staying asleep, or sleeping too much: Not at all 4. Feeling tired or having little energy: Not at all 5. Poor appetite or overeating: Not at all 6. Feeling bad about yourself - or that you are a failure or have let yourself or your family down: Not at all 7. Trouble concentrating on things, such as reading the newspaper or watching television: Not at all 8. Moving or speaking so slowly that other people could have noticed? - Or the opposite - being so fidgety or restless that you have been moving around a lot more than usual: not at all 9. Thoughts that you would be better off or of hurting yourself in some way: Not at all Total score: 0 Source: Developed by Drs. Myke Danielson, Lianet Tobar, Shekhar Pitts and colleagues, with an educational yaquelin from [employer]. Depression screen completed yes 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 Feel Safe at Home: Yes Past Medical History Past Medical History Have you ever been diagnosed with any of the following: Neurological Problems Seizures: No Cardiology Problems Congestive Heart Failure: No Hypertension: Yes Respiratory Problems Chronic Obstructive Pulmonary Disease (COPD): No Asthma: No Pulmonary Embolism: Yes (on eliquis) Stomache/Intestinal Problems Hepatitis: No Gastrointestinal Bleed: Yes (bleeding from rectum) Colorectal Cancer: No Genital/Urinary Problems Renal Disease: No Reproductive Problems Breast Cancer: No Endometriosis: No Pelvic Inflammatory Disease: No Previous Pregnancies: Yes Uterine Prolapse: No Musculoskeletal Problems Bone Cancer: No Endocrine Problems Diabetes Mellitus Type 1: No Diabetes Mellitus Type 2: No Blood Problems Anemia: No Sickle Cell Disease: No Other Problems Hospitalization: Yes Down Syndrome: No Developmental Delay: No Shingles: No Falls: No Blood Transfusions: No Blood Transfusion Reaction: No Anesthesia Reactions: No Organ Transplant: No Chemotherapy: No Radiation Therapy: No Hyperbaric Therapy: No MRSA: No VRSA: No Vancomycin-Resistant Enterococci: No Human Immunodeficiency Virus (HIV): No Chicken Pox: No Measles: No Mumps: No Rubella (Georgian Measles): No Pertussis: No Clostridium Difficile: No Cancer: No Cervical Cancer: No Lung Cancer: No Ovarian Cancer: No History of Present Illness HPI Narrative 24 yo for OBI, happy about + . lmp 01/27/25. menses q month x 5 day. edc 11/04/25. c/o nausea. denies vaginal bleeding or s/s of SAB. history of blood clot in Lung, currently taking Eliquis. No social habits. c/s x2. OB Initial Visit OB Flowsheet OB Flowsheet Initial Weight: Not Recorded Date -?-?-?-?-?-?-?-?-?-?-?-?- EGA Weight Edema CTX Effacement BP Fundal ht Pres Dilation Effacement Station Visit Note Alb Glu FHR Mov 03/19/25 -?-?-?-?-?-?-?-?-?-?-?-?- 7w 2d 119.068 kg absent absent 128/84 8 24 yo prev c/s 2. for oBI. no complaints of SAB, c/o Nausea. history of blood clot in lungs, taking Eliquis. rx given for Dicligesis bid #60. start PNV daily, ob panel ordered, sono scheduled at [facility] for viability and dates, sab precaution discussed, RTC 4 week with OB,ER precaution given absent Menstrual History Menstrual reliability: definite Flow: normal Menstrual regularity: regular Monthly: Yes Age at menarche: 9 On control pills at conception: No Associated symptoms (LMP): Reports nausea, vomiting, fatigue and breast tenderness OB History : 3 Para: 2 # of Living Children: 2 Delivery History 1st : Child's name: Karon date: 11/18/19 sex: female Delivery type: Delivery complications: NONO History of depression before or after : Yes 2nd : Child's name: HECTOR date: 02/05/24 sex: female Delivery type: Delivery complications: NONE History of depression before or after : Yes Infection History & Risk Evaluation History of STDs: none Genetic Screening & History Genetic Screening/Teratology Counseling - Includes patient, baby's father, or anyone in either family with: 1. Patient's age 35 years or older as of estimated date of delivery: No 2. Thalassemia (Tanzanian, Zambian, Mediterranean, or Background); MCV less than 80: No 3. Neural Tube Defect (Meningomyelocele, Spina Bifida, or Anencephaly): No 4. Congenital Heart Defect: No 5. Down Syndrome: No 6. Jesús-Sachs (Ashkenazi Jainism, Cajun, Korean Glasscock): No 7. Monica Disease (Ashkenazi Jainism): No 8. Familial Dysautonomia (Ashkenazi Jainism): No 9. Sickle Cell Disease or Trait (): No 10. Hemophilia or other blood disorders: No 11. Muscular Dystrophy: No 12. Cystic Fibrosis: No 13. Lennox's Chorea: No 14. Mental Retardation/Autism: No 15. Other inherited genetic or chromosomal disorder: No 16. Maternal Metabolic Disorder (EG,TYPE 1 Diabetes, PKU): No 17. Patient or baby's father had a child with defects not listed above: No 18. Recurrent loss or a stillbirth: No 19. Medications (including supplements, vitamins, herbs or otc drugs)/illicit/recreational drugs/alcohol since last menstrual period: No 20. Any other: No Infection History 1. Live with someone with TB or exposed to TB: No 2. Rash or viral illness since last menstrual period: No 3. Hepatitis B,C: No Other (see comments) Source: [employer] Review of Systems Review of Systems Systems Reviewed: All systems reviewed, normal except as documented Constitutional Constitutional: Reports fatigue Gastrointestinal Gastrointestinal: Reports nausea and Reports vomiting Endocrine Endocrine: Reports fatigue Exam General Limitations: no limitations General Appearance: alert, in no apparent distress, comfortable, cooperative, healthy appearing, well developed and well groomed Head Head exam: atraumatic, normocephalic and normal inspection Chest Chest inspection: Present normal inspection and symmetric chest wall rise Resp Respiratory exam: Present normal lung sounds bilaterally Card Cardiovascular exam: Present regular rate, normal rhythm and normal heart sounds Abdominal Abdominal exam: Present soft and normal bowel sounds Psych Psychiatric exam: Present normal affect and normal mood Assessment & Plan Diagnosis / Problem List (1) Encounter for supervision of high risk in first trimester, antepartum: Status: Acute (2) Previous section: Status: Acute Plan SAB precaution, rx for PNV and Diclegesis BID for nausea. comfort measure for nausea, continue Eliquis until appointment with OB, ER precaution and sab precaution, given, OB panel ordered, sono at [facility] for viability and dates, rtc 3 week with OB Additional Plan Follow Up: 3 Weeks (obc) Office Procedures OB Clinic LOC & Office Proc's Nursing/Assessment Patient Status: Established Patient OB Clinic Nursing Assessment: Medication Reconciliation, Update PMH in EMR and Vital Signs OB Clinic Coordination of Care: Complex Care and Chronic Disease 1-5, Consent,records obtained, informed consent, Education Simp Pt/Fam, Lab and Imaging orders, Results/Orders obtained and Staff clarify orders Special Needs: Heart tones Miscellaneous Interventions: Blood/Urine Collection Established Patient Charge Established Patient Point Assignment: 165 Established Patient Point Charge: EP Level 5 (160-above)
== END 2025-03-19 16:19 | disposition home or self-care (01) ==
LOC: HODSOBC 14:53
PROVIDERS: PCP Advanced Practice Midwife; Referring Provider Advanced Practice Midwife; Supervising Provider Obstetrics & Gynecology; Visit Provider Advanced Practice Midwife
DX: O09.291 Supervision of pregnancy with other poor reproductive or obstetric history, first trimester (principal); Z3A.01 Less than 8 weeks gestation of pregnancy; O34.219 Maternal care for unspecified type scar from previous cesarean delivery; Z86.711 Personal history of pulmonary embolism; Z79.01 Long term (current) use of anticoagulants
CPT/HCPCS: 81001; 99215; G0463

== ENCOUNTER 2025-04-09 14:19 | Outpatient (AMB) | payer MEDICAID, SELFPAY ==
[2025-04-09 14:53] VITALS: BP 130/86; PULSE 80; RESP 18; TEMP 36.2; O2SAT 98; BMI 45.1
--- NOTE | 2025-04-09 14:53 | OBCLNT_ITS ---
Vital Signs 04/09/25 14:53 Height 1.63 m Height Method Stated Weight 119.918 kg Weight Measurement Method Standing Scale BMI 45.1 BP 130/86 H Blood Pressure Source Automatic Cuff Blood Pressure Location Left Upper Arm Position Sitting Respiration 18 Pulse 80 Pulse Source Monitor Temp 97.2 F Temp Source Oral Pulse Oximetry (%) 98 Oxygen Delivery Method Room Air Allergies/Home Meds Allergies & Medications Allergies No Known Allergies Allergy (Verified 04/09/25 14:55) Medication Reconciliation acetaminophen 650 mg tablet,extended release (Tylenol 8 Hour) 650 mg PO Q8H PRN pain #14 tabs 02/06/21 [Rx Confirmed 04/09/25] apixaban 5 mg (74 tabs) tablets in a dose pack (Eliquis DVT-PE Treat 30D Start) 5 mg PO BID #74 tabs 10/30/24 [Rx Confirmed 04/09/25] doxylamine 10 mg-pyridoxine (vit B6) 10 mg tablet,delayed release (Diclegis) 1 tab PO QDAY 30 days #30 tabs 04/09/25 [Rx] ondansetron 4 mg disintegrating tablet 4 mg PO Q6H PRN nausea and vomiting 30 days #120 tabs 04/09/25 [Rx] vitamin with calcium no.72-iron 27 mg-folic acid 1 mg tablet ( Vitamins Plus Low Iron) 1 tab PO QDAY 90 days #90 tabs 04/09/25 [Rx] Intake Visit Data Collection New Patient or Established: Established Patient (seen at [facility] within 3 years) Reason for Visit:: follow-up visit at 10 weeks and 2 days gestation Seen by Clinical Staff ONLY (RN/MA): No Deputy Grand Jury Required: No Do You Feel Safe at Home: Yes Authorities Contacted: N/A PCP or OBGYN visit in last 3 months: Yes Date of Last PCP or OBGYN visit: 03/19/25 Hx Now: Yes Are you currently on any form of Control: No Pain Present Currently: No Pain Scale Used: [place]io/Numerical Pain scale:: 0 Smoking Status Smoking Status: Never smoker Questionnaires Covid-19 Vaccine Questionnaire Has patient been vacinated for Covid-19 Have you been vacinated for Covid-19: Yes PHQ-9 PHQ-2 Over the last 2 weeks, how often have you been bothered by any of the following problems? 1. Little interest or pleasure in doing things: not at all 2. Feeling down, depressed, or hopeless: not at all Total score: 0 PHQ-9 3. Trouble falling or staying asleep, or sleeping too much: Not at all 4. Feeling tired or having little energy: Not at all 5. Poor appetite or overeating: Not at all 6. Feeling bad about yourself - or that you are a failure or have let yourself or your family down: Not at all 7. Trouble concentrating on things, such as reading the newspaper or watching television: Not at all 8. Moving or speaking so slowly that other people could have noticed? - Or the opposite - being so fidgety or restless that you have been moving around a lot more than usual: not at all 9. Thoughts that you would be better off or of hurting yourself in some way: Not at all Total score: 0 If you checked off any problems, how difficult have these problems made it for you to do your work, take care of things at home, or get along with other people?: not difficult at all Source: Developed by Drs. Myke Danielson, Lianet Tobar, Shekhar Pitts and colleagues, with an educational yaquelin from [employer]. 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 Patient has a history of 2 prior deliveries. Patient reports nausea (hyperemesis). Denies cramping and abdominal pain. Denies CRUZ, VC, and epigastric pain. History of Present Illness - Bhakti Cullen is a 24-year-old female at 10 weeks and 2 days gestation presenting for a follow-up visit with a history of 2 prior C-sections and multiple medical complications. - Last menstrual period: January 27, 2025 - Estimated due date: November 03, 2025 - Recent medical history: - Pyelonephritis in March 2022 - Pulmonary embolism in October 2024 - Pneumonia and pulmonary emboli in the sub-segmental branches of the left lower lobe - Left heart dilatation - At least 3 episodes of rectal bleeding earlier this year while on anticoagulation - Current : - Complained of hyperemesis at initial visit - Initiated on Tigan for nausea - Stopped taking Eliquis upon learning of - Reports some swelling in her hands - Adherence to treatment: - Has not received the prescribed Diclegis for nausea Care OB Visit Log OB Flowsheet Initial Weight: Not Recorded Date -?-?-?-?-?-?-?-?-?-?-?-?- EGA Weight BP Alb Glu CTX Pres Fundal ht FHR Mov Dilation Station Effacement Hx Notes Visit Note 03/19/25 -?-?-?-?-?-?-?-?-?-?-?-?- 7w 2d 119.068 kg 128/84 absent 8 absent 24 yo prev c/s 2. for oBI. no complaints of SAB, c/o Nausea. history of blood clot in lungs, taking Eliquis. rx given for Dicligesis bid #60. start PNV daily, ob panel ordered, sono scheduled at [facility] for viability and dates, sab precaution discussed, RTC 4 week with OB,ER precaution given 04/09/25 -?-?-?-?-?-?-?-?-?-?-?-?- 10w 2d 119.918 kg 130/86 at 10w2d gestation, presents for routine care. History notable for 2 prior C-sections, pulmonary embolism, rectal bleeding on anticoagulation, and pyelonephritis. Reports ongoing nausea (hyperemesis) but has not picked up Diclegis; previously prescribed Tigan. Stopped Eliquis upon confirmation of . Reports hand swelling; denies CTX/LOF/VB. FHT 158 bpm. LMP 01/27/25, KAL 11/03/25. Labs reviewed: negative infectious panel, Hgb 13. Plan: Schedule formal ultrasound to confirm ge stational age Genetic testing panel + kidney/liver fun ction labs Diclegis prescription sent; continue Tig an as needed vitamins sent to pharmacy Order coagulation profile Urgent MFM referral for anticoagulation planning Discuss Lovenox if indicated Encourage hydration and small, frequent meals Avoid ibuprofen; limit Tylenol to 1/day Monitor edema Routine follow-up in 4 weeks Laboratory, Imaging, and Diagnostic Test Results - Date: 03/22/2025 - Hepatitis B: Negative - Hepatitis C: Negative - RPR: Non-reactive - Rubella: Immune - Blood group: B positive - Antibody screen: Negative - HIV: Negative - Gonorrhea-chlamydia: Negative - Hemoglobin: 13 g/dL - Drug screen: Negative - Ultrasound (date not specified): - heart rate: 158 bpm - Estimated gestational age: 9 weeks a nd 4 days heart tones: 158 bpm. KAL Calculator Estimated Delivery Date Method Current WG Current Estimate 11/03/25 LMP (Certain) 10w 5d Other Estimates 11/10/25 Ultrasound #1 9w 5d Results Objective Laboratory: Laboratory, Imaging, and Diagnostic Test Results - Date: 03/22/2025 - Hepatitis B: Negative - Hepatitis C: Negative - RPR: Non-reactive - Rubella: Immune - Blood group: B positive - Antibody screen: Negative - HIV: Negative - Gonorrhea-chlamydia: Negative - Hemoglobin: 13 g/dL - Drug screen: Negative - Ultrasound (date not specified): - heart rate: 158 bpm - Estimated gestational age: 9 weeks and 4 days heart tones: 158 bpm. Exam General General Appearance: alert, in no apparent distress and healthy appearing Head Head exam: atraumatic Neck Neck exam: Present normal inspection and trachea midline Chest Chest inspection: Present normal inspection and symmetric chest wall rise External exam: Present normal external exam; Absent tenderness Neuro Neurological exam: Present oriented X3 Psych Psychiatric exam: Present normal affect and normal mood Office Procedures OB Clinic LOC & Office Proc's Nursing/Assessment Patient Status: Established Patient OB Clinic Nursing Assessment: Medication Reconciliation, Update PMH in EMR and Vital Signs OB Clinic Coordination of Care: Education Complex Pt/Fam, Consent,records obtained, informed consent, Education Simp Pt/Fam, Lab and Imaging orders and Staff clarify orders Special Needs: Heart tones Established Patient Charge Established Patient Point Assignment: 125 Established Patient Point Charge: EP Level 4 (120-155) Assessment & Plan Diagnosis / Problem List (1) Hyperemesis affecting , antepartum: Status: Acute (2) Previous section: Status: Acute (3) Pulmonary embolism: Status: Acute (4) Pre-existing essential hypertension complicating , second trimester: Status: Acute (5) Encounter for immunization: Status: Acute (6) Other specified counseling: Status: Acute Plan Bhakti Cullen, 24-year-old at 10 weeks 2 days gestation, with history of 2 prior C-sections, pyelonephritis, and pulmonary embolism, presenting for follow-up with hyperemesis. Assessment: Patient is at 10 weeks 2 days gestation based on last menstrual period of January 27, 2025, with an estimated due date of November 03, 2025. Ultrasound performed today showed normal heartbeat of 158 bpm and estimated gestational age of 9 weeks 4 days, which is consistent with dates. Previous lab results from March 22 show negative infectious disease screenings and normal hemoglobin. Patient reports hyperemesis, for which Tigan was previously prescribed. Plan: - Schedule formal ultrasound for confirmation of gestational age - Provide lab slip for genetic testing, including Down Syndrome screening and gender determination - Include additional kidney and liver function tests with genetic testing - Send prescription for vitamins to pharmacy - Advise to stay hydrated with water and electrolyte solutions - Avoid ibuprofen and limit Tylenol intake to one per day if needed for headaches Hyperemesis Gravidarum Assessment: Patient reports ongoing nausea and vomiting in , previously diagnosed as hyperemesis. Tigan was initiated by another provider, but patient has not received the prescribed Diclegis. Plan: - Send prescription for Diclegis to pharmacy - Continue Tigan as previously prescribed History of Pulmonary Embolism Assessment: Patient has a history of pulmonary embolism in October 2024, treated for pneumonia and pulmonary emboli in the sub-segmental branches of the left lower lobe. She was on Eliquis but discontinued upon learning of . Patient also has a history of rectal bleeding while on anticoagulation. Plan: - Order coagulation profile - Arrange urgent consult with maternal- medicine specialist at [facility] - Consider Lovenox for anticoagulation if needed Hand Edema Assessment: Patient reports some swelling in her hands, which may be related to or potentially indicate other underlying conditions. Plan: - Monitor hand swelling at future visits Heart Rate (FHR) and Dates/Viability Verified Review Labs: Confirm results and address any abnormalities with treatment or referrals. History & Symptoms: Ask about nausea, vomiting, bleeding, or cramping. Screen for mental health concerns. Physical Exam: Check weight, blood pressure, and heart rate (via Doppler). Education: Discuss nutrition, exercise, and avoiding harmful substances. Review safe medications and warning signs (e.g., severe pain, bleeding). Screening Tests: Offer genetic screening if not done. Discuss upcoming anatomy scan (18-20 weeks). Plan: Schedule next visit (typically 4 weeks later) and any needed tests. Keep it supportive, address concerns, and ensure clear follow-up instructions.
== END 2025-04-09 15:30 | disposition home or self-care (01) ==
LOC: HODSOBC 14:19
PROVIDERS: Supervising Provider Obstetrics & Gynecology; Visit Provider Obstetrics & Gynecology
DX: O09.291 Supervision of pregnancy with other poor reproductive or obstetric history, first trimester (principal); Z3A.10 10 weeks gestation of pregnancy; O34.219 Maternal care for unspecified type scar from previous cesarean delivery; O09.891 Supervision of other high risk pregnancies, first trimester; O21.0 Mild hyperemesis gravidarum; O10.911 Unspecified pre-existing hypertension complicating pregnancy, first trimester; O12.01 Gestational edema, first trimester; Z86.711 Personal history of pulmonary embolism
CPT/HCPCS: 99214; G0463

== ENCOUNTER 2025-05-02 19:29 | Emergency (ER) | payer MEDICAID, SELFPAY ==
--- NOTE | 2025-05-02 19:30 | EKG_ITS ---
[facility] (Formerly [facility]) Test Date: 2025-05-02 Pat Name: CARLITOS CÁRDENAS Department: Room: - Gender: Female Right Of Way Cutter: : 2000 Requested By: ED Temporary Provider Order Number: [id number] Reading MD: ED Temporary Provider Measurements Intervals [place] Rate: 92 P: 44 LA: 135 QRS: 22 QRSD: 101 T: 31 QT: 355 QTc: 439 Interpretive Statements SINUS RHYTHM Compared to ECG 04/10/2022 17:10:37 Sinus tachycardia no longer present T-wave abnormality no longer present /store/S0/[id number].pdf
[2025-05-02 19:33] VITALS: BMI 45.3
[2025-05-02 21:07] VITALS: BP 149/91; PULSE 83; RESP 18; TEMP 37.4; O2SAT 95
--- NOTE | 2025-05-02 21:32 | XR_ITS ---
Examination: PA lateral chest 2 views FINDINGS: Upright PA and lateral chest 2 views Date and time: May 02, 2025 2139 hours INDICATIONS: Chest pain and weakness today FINDINGS: Normal heart size. Lungs are clear. The osseous structures are intact IMPRESSION: No active disease
--- NOTE | 2025-05-02 21:37 | PD.EDCHEST ---
ED Chest Pain RME/HPI General Chief Complaint: Chest Pain Stated Complaint: CHEST PAIN Time Seen by Provider: 05/02/25 21:32 Arrival date/time: 05/02/25 19:29 24F with history of PE presents to ED with 1 week of cough, CP, and SOB. Patient was on Eliquis, but stopped it because she got (13 weeks) and was supposed to switch to Lovenox, but never got the new meds. Patient denies ab/pelvic pain and vaginal bleeding. Patient tested positive for strep 2 weeks ago and finished ABX. Limitations: no limitations Related Data Previous Rx's ?Medication ?Instructions ?Recorded acetaminophen 650 mg 650 mg PO Q8H PRN pain #14 tabs 02/06/21 tablet,extended release (Tylenol 8 Hour) apixaban 5 mg (74 tabs) tablets in 5 mg PO BID #74 tabs 10/30/24 a dose pack (Eliquis DVT-PE Treat 30D Start) doxylamine 10 mg-pyridoxine (vit 1 tab PO QDAY 30 days #30 tabs 04/09/25 B6) 10 mg tablet,delayed release (Diclegis) ondansetron 4 mg disintegrating 4 mg PO Q6H PRN nausea and 04/09/25 tablet vomiting 30 days #120 tabs vitamin with calcium 1 tab PO QDAY 90 days #90 tabs 04/09/25 no.72-iron 27 mg-folic acid 1 mg tablet ( Vitamins Plus Low Iron) Allergies Allergy/AdvReac Type Severity Reaction Status Date / Time No Known Allergies Allergy Verified 04/09/25 14:55 Review of Systems Review of Systems Systems Reviewed: All systems reviewed, normal except as documented Constitutional Constitutional: Reports system reviewed and no additional complaints, except as documented, Denies fever(s) and Denies headache(s) ENT Ears, Nose, Mouth, and Throat: Denies disequilibrium and Denies headache(s) Cardiovascular Cardiovascular: Reports system reviewed and no additional complaints, except as documented, Reports as per HPI, Reports chest pain and Reports dyspnea Respiratory Respiratory: Reports system reviewed and no additional complaints, except as documented, Reports as per HPI, Reports cough and Reports dyspnea Gastrointestinal Gastrointestinal: Reports system reviewed and no additional complaints, except as documented, Denies abdominal pain, Denies nausea and Denies vomiting Neurologic Neurologic: Reports system reviewed and no additional complaints, except as documented, Denies confusion, Denies disequilibrium and Denies headache(s) Psychiatric Psychiatric: Denies confusion Past Medical History Past Medical History NEUROLOGIC: Negative Neurological Disorders or Seizures CARDIAC: Positive Hypertension; Negative Cardiac Disorders or Congestive Heart Failure RESPIRATORY: Positive Pulmonary Embolism (on eliquis); Negative Chronic Obstructive Pulmonary Disease (COPD) or Asthma GASTROINTESTINAL: Positive Gastrointestinal Disorders and Gastrointestinal Bleed (bleeding from rectum); Negative Hepatitis or Colorectal Cancer GENITOURINARY: Negative Genitourinary Disorders, Renal Disease or Prostate Cancer REPRODUCTIVE: Positive Previous Pregnancies; Negative Breast Cancer, Endometriosis, Pelvic Inflammatory Disease, Testicular Cancer or Uterine Prolapse MUSCULOSKELETAL: Negative Musculoskeletal Disorders or Bone Cancer ENDOCRINE: Negative Endocrine Disorders, Diabetes Mellitus Type 1 or Diabetes Mellitus Type 2 HEMATOLOGIC: Negative Blood Disorders, Anemia or Sickle Cell Disease OTHER HISTORY: Positive Hospitalization; Negative Autoimmune Disease, Down Syndrome, Developmental Delay, Shingles, Falls, Blood Transfusions, Blood Transfusion Reaction, Anesthesia Reactions, Organ Transplant, Chemotherapy, Radiation Therapy, Hyperbaric Therapy, MRSA, VRSA, Vancomycin-Resistant Enterococci, Human Immunodeficiency Virus (HIV), Chicken Pox, Measles, Mumps, Rubella (Bengali Measles), Pertussis, Clostridium Difficile, Cancer, Breast Cancer, Cervical Cancer, Colorectal Cancer, Lung Cancer, Ovarian Cancer, Prostate Cancer or Testicular Cancer Family History FAMILY HISTORY: Negative Family Psychiatric Problems, Family Respiratory Disorders, Family Cardiac Disorders, Family Gastrointestinal Problems, Family Cancer, Family Surgery or Family Anesthesia Reaction Surgical History SURGICAL: Positive Section; Negative Organ Transplant Social History SMOKING STATUS: Never smoker SECOND HAND EXPOSURE: No ED Exam General Limitations: Present no limitations General appearance: Present alert and in no apparent distress Head Head exam: Present atraumatic Eye Eye exam: Present normal appearance, PERRL and EOMI ENT ENT exam: Present normal exam, normal oropharynx and mucous membranes moist Neck Neck exam: Present normal inspection, full ROM and trachea midline Chest Chest inspection: Present normal inspection and symmetric chest wall rise Respiratory Respiratory exam: Present normal lung sounds bilaterally Cardiovascular Cardiovascular exam: Present regular rate, normal rhythm and normal heart sounds Abdominal Exam Abdominal exam: Present soft and normal bowel sounds Extremities Exam Extremities exam: Present normal inspection and full ROM Back Exam Back exam: Present normal inspection and full ROM Neurological Exam Neurological exam: Present alert, oriented X3 and CN II-XII intact Psychiatric Psychiatric exam: Present normal affect and normal mood Skin Skin exam: Present warm, dry, intact and normal color Course Quality Measures none Orders Category Date Time Status Bedside COVID-19 Antigen Test NOW Care 05/02/25 21:32 Completed Bedside Influenza A&B Antigen Test NOW Care 05/02/25 21:[address] Screening NOW Care 05/02/25 23:28 Completed EKG (ED ONLY) *Do not use* NOW Care 05/02/25 19:30 Completed Insert IV NOW Care 05/02/25 23:[address] angio chest Stat Exams 05/02/25 23:28 Taken EKG (ED Only) Stat Exams 05/02/25 19:30 Draft XR chest 2V Stat Exams 05/02/25 21:32 Completed CBC Stat Lab 05/02/25 21:54 Completed Comprehensive Metabolic Panel Stat Lab 05/02/25 21:54 Completed Partial Thromboplastin Time Stat Lab 05/02/25 21:54 Completed Prothrombin Time with INR Stat Lab 05/02/25 21:54 Completed Troponin I Stat Lab 05/02/25 21:54 Completed Vital Signs Vital signs: Vital Signs Temperature 99.3 F 05/02/25 21:07 Pulse Rate 83 05/02/25 21:07 Respiratory Rate 18 05/02/25 21:07 Blood Pressure 149/91 H 05/02/25 21:07 Pulse Oximetry (%) 95 05/02/25 21:07 Oxygen Delivery Method Room Air 05/02/25 21:07 O2 at 95% on RA and WNLs Chest Pain MDM Narrative MDM Narrative:: 24F with history of PE presents to ED with 1 week of cough, CP, and SOB. Patient was on Eliquis, but stopped it because she got (13 weeks) and was supposed to switch to Lovenox, but never got the new meds. Patient denies ab/pelvic pain and vaginal bleeding. Patient tested positive for strep 2 weeks ago and finished ABX. Physical exam reveals normal WOB. Patient is afebrile, calm, and alert. EKG is NSR. CXR unremarkable. Minimal leukocytosis. CMP unremarkable. Trop normal. Spoke to Dr. Pineda, OB, who recommends getting CTA to r/o PE since D-dimer will be elevated anyway. If PE still present, give Lovenox. If not, can DC. CT reveals no PE. Likely viral URI or residual strep. Patient data External records reviewed:: [facility] previous records Clinical information provided by:: patient Social determinants that could affect healthcare access:: none Patient has the following chronic illnesses:: PE How is presenting disease/condition affected by chronic disease/condition?: exacerbated by Evaluation data The following diagnostics were reviewed and interpreted by me:: lab results, radiology exam(s) and EKG tracing(s) Lab and/or radiology exams considered but not ordered:: ordered Interpretation Summary: above Medications / Prescriptions Medications or Prescriptions considered but not ordered:: not ordered Medication administrations:: n/a Consultations Consultation(s) initiated? (list below): Yes Diagnosis Chest Pain Differential Diagnosis: fracture of rib, pneumothorax, stable angina, unstable angina pectoris, atypical chest pain, st elevation myocardial infarction, costochondritis, chest pain, biliary colic and other (URI, PNA) Most likely diagnosis given after review of the tests above:: URI Admission Indicated Admission indicated?: not indicated Admission Request Was there a request for admission?: No Disposition Plan Disposition Plan: Discharge Discharge Attestation Discharge Attestation: The patient and all family members were given an opportunity to ask questions and understood the discharge instructions. Discharge instructions specifically effects, indications for sooner follow up or return to the emergency department, and the expected course of current diagnosis. Patient condition: Stable Discharge Plan Plan Patient Disposition: HOME (Self Care) Discharge Disposition comment: Stable Prescriptions/Referrals Prescriptions/Med Rec: No Action doxylamine-pyridoxine (vit B6) [Diclegis] 10-10 mg tablet,delayed release (DR/EC) 1 tab PO QDAY 30 Days Qty: 30 0RF Vitamin Plus Low Iron 27 mg iron- 1 mg tablet 1 tab PO QDAY 90 Days Qty: 90 6RF ondansetron 4 mg tablet,disintegrating 4 mg PO Q6H PRN (Reason: nausea and vomiting) 30 Days Qty: 120 0RF acetaminophen [Tylenol 8 Hour] 650 mg tablet extended release 650 mg PO Q8H MDD 4 PRN (Reason: pain) Qty: 14 0RF Eliquis DVT-PE Treat 30D Start 5 mg (74 tabs) tablets,dose pack 5 mg PO BID Qty: 74 0RF Referrals: Obed Stanford MD [Primary Care Provider] - In 1 week Problem List Clinical Impression: URI (upper respiratory infection) Patient/Caregiver Discharge Instructions Education Materials: ED URI, Viral, No Abx (Adult) Additional Instructions: Please follow-up with PCP within 24-48 hours and return immediately if symptoms worsen. Ibuprofen/Tylenol can be used simultaneously for greater fever/pain control. Benadryl is good for cough, congestion, and sleep. Follow-up with Dr. Anderson to see if you still need to be on Lovenox. Print Language: Kyrgyz Stand Alone Forms: Patient Portal Info Letter PA/GLUED WOOD TESTER Supervising Physician PA/BREE Supervising Physician: Dr. Bone
[2025-05-02 22:18] LABS: Basophils # (Auto) 0.1 Thou/mm3 (0.0-0.2); Basophils % (Auto) 0 % (0-2.5); Eosinophils # (Auto) 0.2 Thou/mm3 (0.0-0.5); Eosinophils % (Auto) 2 % (0-10); Hematocrit 38.3 % (36.0-46.0); Immature Granulocytes % (Auto) 0 % (0-0); Immature Granulocytes Auto 0.03 Thou/mm3 (0.00-0.00); Lymphocytes # (Auto) 3.1 Thou/mm3 (1.0-4.8); Lymphocytes % (Auto) 28 % (10-50); Mean Corpuscular HGB Conc 33.9 g/dl (31.0-37.0); Mean Corpuscular Hemoglobin 27.7 pg (25.0-35.0); Mean Corpuscular Volume 82 fL (80-100); Monocytes % (Auto) 9 % (0-12); Neutrophils # (Auto) 6.8 Thou/mm3 (1.8-7.7); Neutrophils % (Auto) 61 % (37-80); Nucleated Red Blood Cell % 0 /100 WBC (0); Platelet Count 249 Thou/mm3 (140-440); RDW Standard Deviation 41.4 fL (36.4-46.3); White Blood Count 11.1 Thou/mm3 (3.6-11.0)
[2025-05-02 22:33] LABS: Partial Thromboplastin Time 26.7 Seconds (22.0-36.0); Prothrombin Time 10.9 Seconds (9.0-12.2)
[2025-05-02 22:44] LABS: Alanine Aminotransferase 15 U/L (10-49); Albumin, Serum 4.1 gm/dL (3.5-5.0); Albumin/Globulin Ratio 1.4 (1.2-2.2); Alkaline Phosphatase 43 U/L (46-116); Anion Gap 11 (7-16); Aspartate Amino Transferase 18 U/L (0-34); BUN/Creatinine Ratio 10 Ratio (12-20); Bilirubin,Total 0.3 mg/dL (0.3-1.2); Blood Urea Nitrogen 6 mg/dL (9-23); Calcium 9.5 mg/dL (8.3-10.6); Calcium (Corrected) 9.5 mg/dL (8.5-10.1); Carbon Dioxide 24.9 mMol/L (20.0-31.0); Chloride 103 mMol/L (98-107); Creatinine (Component) 0.6 mg/dL (0.6-1.3); Estimated Creatinine Clearance 184.2 mL/min (>60); Globulin 2.9 gm/dL (2.3-3.5); Glucose 96 mg/dL (74-106); Osmolality,Calculated 275 (275-295); Potassium 3.5 mMol/L (3.4-5.1); Sodium 139 mMol/L (136-145); Troponin I < 0.002 ng/mL (0.0-0.045); eGFR > 60 See Note
--- NOTE | 2025-05-02 23:28 | XR_ITS ---
Examination: CTA chest with intravenous contrast 2-D reconstructions 3-D reconstructions, vascular Date and time of exam: May 03, 2025 at 0407 hours INDICATIONS: Onset chest pain shortness of breath today CTDI: vol (mGy) 19.6 DLP: (mGycm) 611 Technique: Multiple axial sections of the thorax have been obtained. 3 mm slice thickness, from below the hemidiaphragms to above the apices of the lungs. Mediastinal and lung density settings have been obtained. 2-D sagittal and coronal reconstructions. 3-D angiographic renderings, 3-D volume renderings, 3D post processing, vascular maximum intensity projections obtained. Contrast administered is 80 cc Isovue-[id number]. Intravenous Low dose protocols were performed. One or more of the following dose reduction techniques were used; automated exposure control, adjustment of the mA and/or KV according to patient size, use of iterative reconstruction technique. Findings: No thoracic aortic aneurysmal dilatation or dissection Pulmonary artery opacification is not optimal No pulmonary artery filling defects No pneumonia or pulmonary edema or pleural disease Fatty infiltration throughout the liver IMPRESSION: Negative for pulmonary artery emboli No pneumonia or pulmonary edema
[2025-05-03 04:32] VITALS: BP 142/82; PULSE 75; RESP 16; TEMP 36.7; O2SAT 100
--- NOTE | 2025-05-03 05:36 | PRELIM_ITS ---
CT angiogram of the chest aorta with intravenous contrast (axial sections with sagittal and coronal reformats) May 03, 2025 at 0407 hours Clinical History: Rule out pulmonary thromboembolism. Comparison: None. Findings: There is no filling defect in the pulmonary artery divisions to suggest pulmonary thromboembolism. No pericardial effusion is seen. No pleural effusion. The heart size is normal. Main pulmonary artery caliber is normal. There is no mediastinal, hilar or axillary adenopathy. No aortic aneurysm or dissection. No pneumothorax. No acute osseous process. The chest wall is unremarkable. Clear lungs. Fatty liver infiltration. Impression: No evidence of pulmonary thromboembolism. No acute thoracic process. Report Electronically Signed By: Ziyad Rose 05/03/2025 5:35:38 AM [EST]
[2025-05-03 05:50] VITALS: RESP 14
== END 2025-05-03 05:51 | disposition home or self-care (01) ==
PROVIDERS: Physician Assistant; Emergency Provider Emergency Medicine; PCP Family Medicine
DX: R07.9 Chest pain, unspecified (principal); J06.9 Acute upper respiratory infection, unspecified; O99.511 Diseases of the respiratory system complicating pregnancy, first trimester; Z3A.13 13 weeks gestation of pregnancy
CPT/HCPCS: 36415; 71046; 71275; 80053; 84484; 85025; 85610; 85730; 87400; 87811; 93005; 99285; A4649; Q9967

== ENCOUNTER 2025-05-07 14:46 | Outpatient (AMB) | payer MEDICAID, SELFPAY ==
--- NOTE | 2025-05-07 14:56 | OBCLNT_ITS ---
Vital Signs 05/07/25 14:57 Height 1.63 m Height Method Measured Weight 119.862 kg Weight Measurement Method Standing Scale BMI 45.3 BP 128/78 Blood Pressure Source Automatic Cuff Blood Pressure Location Right Upper Arm Position Sitting Respiration 17 Pulse 79 Pulse Source Monitor Temp 97.9 F Temp Source Temporal Artery Scan Pulse Oximetry (%) 98 Oxygen Delivery Method Room Air Allergies/Home Meds Allergies & Medications Allergies No Known Allergies Allergy (Verified 05/07/25 14:58) Medication Reconciliation vitamin with calcium no.72-iron 27 mg-folic acid 1 mg tablet ( Vitamins Plus Low Iron) 1 tab PO QDAY 90 days #90 tabs 04/09/25 [Rx Confirmed 05/07/25] enoxaparin 40 mg/0.4 mL subcutaneous syringe (Lovenox) 40 mg (0.4 mL) subcut QDAY 30 days #12 mL 05/07/25 [Rx] Intake Visit Data Collection New Patient or Established: Established Patient (seen at [facility] within 3 years) Reason for Visit:: OBC Seen by Clinical Staff ONLY (RN/MA): No 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 1. Little interest or pleasure in doing things: not at all 2. Feeling down, depressed, or hopeless: not at all Total score: 0 PHQ-9 3. Trouble falling or staying asleep, or sleeping too much: Not at all 4. Feeling tired or having little energy: Not at all 5. Poor appetite or overeating: Not at all 6. Feeling bad about yourself - or that you are a failure or have let yourself or your family down: Not at all 7. Trouble concentrating on things, such as reading the newspaper or watching television: Not at all 8. Moving or speaking so slowly that other people could have noticed? - Or the opposite - being so fidgety or restless that you have been moving around a lot more than usual: not at all 9. Thoughts that you would be better off or of hurting yourself in some way: Not at all Total score: 0 If you checked off any problems, how difficult have these problems made it for you to do your work, take care of things at home, or get along with other people?: not difficult at all Source: Developed by Drs. Myke Danielson, Lianet Tobar, Shekhar Pitts and colleagues, with an educational yaquelin from [employer]. 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 She has a history of two prior C- sections and a recent pulmonary embolism. The patient was urgently referred to maternal- medicine for anticoagulation management due to her history of pulmonary embolism while on hormonal contraceptives. The patient reports experiencing a headache on one side of her head for the past two days. No other current symptoms or complaints are mentioned. She has been started on Diclegis and Phenergan, presumably for management of - related nausea, though this is not explicitly stated. Bhakti recently had a maternal- medicine consult on 05/02/2025 at 13 weeks and 4 days gestation, which was consistent with her last menstrual period dates. The average ultrasound age at that time was 14 weeks and one day. She was sent to the emergency room for evaluation of pulmonary embolism, though the outcome of this evaluation is not mentioned. Due to her history of pulmonary embolism while on hormonal contraceptives, Bhakti will be started on Lovenox once daily for the entire and 6 weeks . She has been informed that the injection is subcutaneous and that a pharmacist will instruct her on administration. Medications and Supplements - Diclegis - Phenergan - Lovenox - Subcutaneous injection once daily - To be taken for entire and 6 weeks - vitamins - Extra-strength Tylenol - As needed for headache Review of Systems HEENT: Positive for headache on one side of the head for 2 days. Care OB Visit Log OB Flowsheet Initial Weight: Not Recorded Date -?-?-?-?-?-?-?-?-?-?-?-?- EGA Weight BP Alb Glu CTX Pres Fundal ht FHR Mov Dilation Station Effacement Hx Notes Visit Note 03/19/25 -?-?-?-?-?-?-?-?-?-?-?-?- 7w 2d 119.068 kg 128/84 absent 8 absent 24 yo prev c/s 2. for oBI. no complaints of SAB, c/o Nausea. history of blood clot in lungs, taking Eliquis. rx given for Dicligesis bid #60. start PNV daily, ob panel ordered, sono scheduled at [facility] for viability and dates, sab precaution discussed, RTC 4 week with OB,ER precaution given 04/09/25 -?-?-?-?-?-?-?-?-?-?-?-?- 10w 2d 119.918 kg 130/86 at 10w2d gestation, presents for routine care. History notable for 2 prior C-sections, pulmonary embolism, rectal bleeding on anticoagulation, and pyelonephritis. Reports ongoing nausea (hyperemesis) but has not picked up Diclegis; previously prescribed Tigan. Stopped Eliquis upon confirmation of . Reports hand swelling; denies CTX/LOF/VB. FHT 158 bpm. LMP 01/27/25, KAL 11/03/25. Labs reviewed: negative infectious panel, Hgb 13. Plan: Schedule formal ultrasound to confirm ge stational age Genetic testing panel + kidney/liver fun ction labs Diclegis prescription sent; continue Tig an as needed vitamins sent to pharmacy Order coagulation profile Urgent MFM referral for anticoagulation planning Discuss Lovenox if indicated Encourage hydration and small, frequent meals Avoid ibuprofen; limit Tylenol to 1/day Monitor edema Routine follow-up in 4 weeks Laboratory, Imaging, and Diagnostic Test Results - Date: 03/22/2025 - Hepatitis B: Negative - Hepatitis C: Negative - RPR: Non-reactive - Rubella: Immune - Blood group: B positive - Antibody screen: Negative - HIV: Negative - Gonorrhea-chlamydia: Negative - Hemoglobin: 13 g/dL - Drug screen: Negative - Ultrasound (date not specified): - heart rate: 158 bpm - Estimated gestational age: 9 weeks a nd 4 days heart tones: 158 bpm. 05/07/25 -?-?-?-?-?-?-?-?-?-?-?-?- 14w 2d 119.862 kg 128/78 at 14w2d. Hx 2 prior C/S, recent PE on hormonal contraceptives. Unilateral CRUZ x2 days. BMI 45. On Diclegis/Phenergan for nausea. MFM consult 05/02, US normal, male fetus. Coag studies normal except low antithrombin antigen. NIPT negative Lovenox SQ daily entire + 6w , dietitian consult for obesity, extra-strength Tylenol for CRUZ, avoid hormonal BC, FU 4w. KAL Calculator Estimated Delivery Date Method Current WG Current Estimate 11/03/25 LMP (Certain) 15w 0d Other Estimates 11/10/25 Ultrasound #1 14w 0d Specific Issue/Plans Vital Signs - BMI: 45 kg/m? Laboratory, Imaging, and Diagnostic Test Results - Date: 04/10/2025 (reported on 04/22/2025) - Lupus panel: Within normal limits - Lupus anticoagulant: Not detected - Von Willebrand factor: Within normal limits - Factor 8: 131 - INR: 1.0 - Prothrombin time: 10.7 seconds - Antithrombin: 3.99 - Antithrombin antigen: Low - APTT: 29 (within normal limits) Exam General General Appearance: alert, in no apparent distress and healthy appearing Head Head exam: atraumatic Neck Neck exam: Present normal inspection and trachea midline Chest Chest inspection: Present normal inspection and symmetric chest wall rise External exam: Present normal external exam; Absent tenderness Neuro Neurological exam: Present oriented X3 Psych Psychiatric exam: Present normal affect and normal mood Office Procedures OB Clinic LOC & Office Proc's Nursing/Assessment Patient Status: Established Patient OB Clinic Nursing Assessment: Medication Reconciliation, Update PMH in EMR and Vital Signs OB Clinic Coordination of Care: Complex Care and Chronic Disease 1-5, Education Complex Pt/Fam, Consent,records obtained, informed consent, Lab and Imaging orders and Staff clarify orders Special Needs: Heart tones Established Patient Charge Established Patient Point Assignment: 135 Established Patient Point Charge: EP Level 4 (120-155) Assessment & Plan Diagnosis / Problem List (1) Pulmonary embolism: Status: Acute (2) Previous section: Status: Acute Plan Bhakti Cullen, 24-year-old female at 14 weeks 2 days gestation, with history of 2 prior C-sections and recent pulmonary embolism, presenting for care. Assessment: Patient is at 14 weeks 2 days gestation, consistent with last menstrual period dates. Ultrasound on 05/02/2025 at 13 weeks 4 days showed average ultrasound age of 14 weeks 1 day. Limited anatomy survey was within normal limits. Maternity testing was negative for all trisomies, and gender is male. BMI is 45, indicating obesity. Patient has a history of hypertension and two prior C-sections. Recent blood work, including lupus panel, was within normal limits. No lupus anticoagulant was detected. Von Willebrand factor, factor 8, INR, prothrombin time, antithrombin, and APTT were all within normal limits, with antithrombin antigen noted as low. Plan: - Continue care with next appointment on 06/21/2025 - Dietitian consult recommended due to high BMI - Provide vitamins prescription - Administer Lovenox 1 injection subcutaneously daily throughout and for 6 weeks - Pharmacist to demonstrate injection technique - Continue Diclegis and Phenergan for nausea management - Avoid hormone-containing control in the future - Follow up in 4 weeks History of Pulmonary Embolism Assessment: Patient has a recent history of pulmonary embolism while on hormonal contraceptive. Blood tests were negative for genetic mutations or other problems that could explain the blood clot, making her low risk for forming another clot. However, due to the history of pulmonary embolism, anticoagulation management is necessary during and period. Plan: - Administer Lovenox 1 injection subcutaneously daily throughout and for 6 weeks - Pharmacist to demonstrate injection technique - Avoid use of Eliquis during - Avoid hormone-containing control in the future Headache Assessment: Patient reports experiencing a headache on one side of her head for 2 days. Plan: - Recommend extra-strength Tylenol for headache management - Advise patient to call if headache persists
[2025-05-07 14:57] VITALS: BP 128/78; PULSE 79; RESP 17; TEMP 36.6; O2SAT 98; BMI 45.3
== END 2025-05-07 15:47 | disposition home or self-care (01) ==
LOC: HODSOBC 14:46
PROVIDERS: Supervising Provider Obstetrics & Gynecology; Visit Provider Obstetrics & Gynecology
DX: O09.892 Supervision of other high risk pregnancies, second trimester (principal); O88.212 Thromboembolism in pregnancy, second trimester; I26.99 Other pulmonary embolism without acute cor pulmonale; O09.292 Supervision of pregnancy with other poor reproductive or obstetric history, second trimester; O34.219 Maternal care for unspecified type scar from previous cesarean delivery; O99.212 Obesity complicating pregnancy, second trimester; Z3A.14 14 weeks gestation of pregnancy; Z79.01 Long term (current) use of anticoagulants
CPT/HCPCS: 99214; G0463

== ENCOUNTER 2025-05-16 15:27 | Outpatient (AMB) | payer MEDICAID, SELFPAY ==
[2025-05-16 15:48] VITALS: BP 123/78; PULSE 95; RESP 17; TEMP 36.7; O2SAT 98; BMI 45.3
--- NOTE | 2025-05-16 15:48 | AMB.OBVISIT ---
Vital Signs 05/16/25 15:48 Height 1.63 m Height Method Measured Weight 119.805 kg Weight Measurement Method Standing Scale BMI 45.3 BP 123/78 Blood Pressure Source Automatic Cuff Blood Pressure Location Right Upper Arm Position Sitting Respiration 17 Pulse 95 Pulse Source Monitor Temp 98.0 F Temp Source Temporal Artery Scan Pulse Oximetry (%) 98 Oxygen Delivery Method Room Air Allergies/Home Meds Allergies & Medications Allergies No Known Allergies Allergy (Verified 05/16/25 15:49) Medication Reconciliation vitamin with calcium no.72-iron 27 mg-folic acid 1 mg tablet ( Vitamins Plus Low Iron) 1 tab PO QDAY 90 days #90 tabs 04/09/25 [Rx Confirmed 05/16/25] enoxaparin 40 mg/0.4 mL subcutaneous syringe (Lovenox) 40 mg (0.4 mL) subcut QDAY 30 days #12 mL 05/07/25 [Rx Confirmed 05/16/25] Intake Visit Data Collection New Patient or Established: Established Patient (seen at 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 1. Little interest or pleasure in doing things: not at all 2. Feeling down, depressed, or hopeless: not at all Total score: 0 PHQ-9 3. Trouble falling or staying asleep, or sleeping too much: Not at all 4. Feeling tired or having little energy: Not at all 5. Poor appetite or overeating: Not at all 6. Feeling bad about yourself - or that you are a failure or have let yourself or your family down: Not at all 7. Trouble concentrating on things, such as reading the newspaper or watching television: Not at all 8. Moving or speaking so slowly that other people could have noticed? - Or the opposite - being so fidgety or restless that you have been moving around a lot more than usual: not at all 9. Thoughts that you would be better off or of hurting yourself in some way: Not at all Total score: 0 If you checked off any problems, how difficult have these problems made it for you to do your work, take care of things at home, or get along with other people?: not difficult at all Source: Developed by Drs. Myke Danielson, Lianet Tobar, Shekhar Pitts and colleagues, with an educational yaquelin from [employer]. 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 She describes the area as painful, with a visible bump at the injection site. Bhakti also mentions that she noticed some of the medication leaking out when she removed the needle after her last injection. She expresses concern about the extent of the bruising, stating it hurts. The patient denies any other bruises from her Lovenox injections aside from this particular instance. She is a 15-week and 4-day female with a history of pulmonary embolism, presenting for evaluation of a bruise at her Lovenox injection site. She is currently on Lovenox therapy for her history of pulmonary embolism. The medication is a single-use, 40 mg/0.4 mL formulation. She has been administering the injections to her abdomen but is experiencing difficulty with the technique, resulting in the current bruising and discomfort. Bhakti brought her Lovenox injection supplies to the appointment for demonstration. Review of Systems shows positive for bruising and pain at injection site. Care OB Visit Log OB Flowsheet Initial Weight: Not Recorded Date <del>?</del> EGA Weight BP Alb Glu CTX Pres Fundal ht FHR Mov Dilation Station Effacement Hx Notes Visit Note 03/19/25 <del>?</del> 7w 2d 119.068 kg 128/84 absent 8 absent 24 yo prev c/s 2. for oBI. no complaints of SAB, c/o Nausea. history of blood clot in lungs, taking Eliquis. rx given for Dicligesis bid #60. start PNV daily, ob panel ordered, sono scheduled at [facility] for viability and dates, sab precaution discussed, RTC 4 week with OB,ER precaution given 04/09/25 <del>?</del> 10w 2d 119.918 kg 130/86 at 10w2d gestation, presents for routine care. History notable for 2 prior C-sections, pulmonary embolism, rectal bleeding on anticoagulation, and pyelonephritis. Reports ongoing nausea (hyperemesis) but has not picked up Diclegis; previously prescribed Tigan. Stopped Eliquis upon confirmation of . Reports hand swelling; denies CTX/LOF/VB. FHT 158 bpm. LMP 01/27/25, KLA 11/03/25. Labs reviewed: negative infectious panel, Hgb 13. Plan: Schedule formal ultrasound to confirm gestational age Genetic testing panel + kidney/liver function labs Diclegis prescription sent; continue Tigan as needed vitamins sent to pharmacy Order coagulation profile Urgent MFM referral for anticoagulation planning Discuss Lovenox if indicated Encourage hydration and small, frequent meals Avoid ibuprofen; limit Tylenol to 1/day Monitor edema Routine follow-up in 4 weeks Laboratory, Imaging, and Diagnostic Test Results - Date: 03/22/2025 - Hepatitis B: Negative - Hepatitis C: Negative - RPR: Non-reactive - Rubella: Immune - Blood group: B positive - Antibody screen: Negative - HIV: Negative - Gonorrhea-chlamydia: Negative - Hemoglobin: 13 g/dL - Drug screen: Negative - Ultrasound (date not specified): - heart rate: 158 bpm - Estimated gestational age: 9 weeks and 4 days heart tones: 158 bpm. 05/07/25 <del>?</del> 14w 2d 119.862 kg 128/78 at 14w2d. Hx 2 prior C/S, recent PE on hormonal contraceptives. Unilateral CRUZ x2 days. BMI 45. On Diclegis/Phenergan for nausea. MFM consult 05/02, US normal, male fetus. Coag studies normal except low antithrombin antigen. NIPT negative Lovenox SQ daily entire + 6w , dietitian consult for obesity, extra-strength Tylenol for CRUZ, avoid hormonal BC, FU 4w. 05/16/25 <del>?</del> 15w 4d 119.805 kg 123/78 absent 15w4d, on Lovenox for prior PE, c/o large painful bruise and bump at recent abdominal injection site with reported med leakage. Denies bruising elsewhere. PE: localized bruising with palpable bump. Plan: reviewed SC technique?partial needle insertion, slow inject, rotate sites, avoid vasculature, hold skin taut. May switch to thigh if needed. RTC 05/31; sooner if worsens. KAL Calculator Estimated Delivery Date Method Current WG Current Estimate 11/03/25 LMP (Certain) 16w 1d Other Estimates 11/10/25 Ultrasound #1 15w 1d Specific Issue/Plans Vital Signs - BMI: 45 kg/m? Laboratory, Imaging, and Diagnostic Test Results - Date: 04/10/2025 (reported on 04/22/2025) - Lupus panel: Within normal limits - Lupus anticoagulant: Not detected - Von Willebrand factor: Within normal limits - Factor 8: 131 - INR: 1.0 - Prothrombin time: 10.7 seconds - Antithrombin: 3.99 - Antithrombin antigen: Low - APTT: 29 (within normal limits) Exam General General Appearance: alert, in no apparent distress and healthy appearing Head Head exam: atraumatic Neck Neck exam: Present normal inspection and trachea midline Chest Chest inspection: Present normal inspection and symmetric chest wall rise External exam: Present normal external exam; Absent tenderness Neuro Neurological exam: Present oriented X3 Psych Psychiatric exam: Present normal affect and normal mood Office Procedures OB Clinic LOC & Office Proc's Nursing/Assessment Patient Status: Established Patient OB Clinic Nursing Assessment: Medication Reconciliation, Update PMH in EMR and Vital Signs OB Clinic Coordination of Care: Complex Care and Chronic Disease 1-5, Consent,records obtained, informed consent, Lab and Imaging orders and Staff clarify orders Special Needs: Heart tones Established Patient Charge Established Patient Point Assignment: 115 Established Patient Point Charge: EP Level 3 (80-115) Assessment & Plan Diagnosis / Problem List (1) Other specified counseling: Status: Acute (2) Pre-existing essential hypertension complicating , second trimester: Status: Acute (3) Pulmonary embolism: Status: Acute (4) Hyperemesis affecting , antepartum: Status: Acute Plan Lovenox injection site bruising: - Large bruise and small bump noted at injection site on abdomen. - Some medication leaked out after needle removal. - Findings suggest improper injection technique, possibly hitting a vein or injecting too deeply. Plan: - Educate patient on proper Lovenox injection technique: ? Use subcutaneous injection method, similar to insulin administration. ? Insert needle only partially, not fully. ? Pull back on syringe to check for blood before injecting. ? Inject medication slowly. ? Rotate injection sites, staying above the belly button. ? Hold skin stable with other hand during injection. - Consider alternative injection site (thigh) if abdominal bruising persists. - Patient to return on May 31, 2025 for follow-up. - Advise patient to return sooner if bruising worsens or other concerns arise.
== END 2025-05-16 16:12 | disposition home or self-care (01) ==
LOC: HODSOBC 15:27
PROVIDERS: Supervising Provider Obstetrics & Gynecology; Visit Provider Obstetrics & Gynecology
DX: O09.892 Supervision of other high risk pregnancies, second trimester (principal); O21.0 Mild hyperemesis gravidarum; O10.012 Pre-existing essential hypertension complicating pregnancy, second trimester; O9A.212 Injury, poisoning and certain other consequences of external causes complicating pregnancy, second trimester; S30.1XXA Contusion of abdominal wall, initial encounter; Z3A.15 15 weeks gestation of pregnancy; Z86.711 Personal history of pulmonary embolism; Z79.01 Long term (current) use of anticoagulants; Y84.8 Other medical procedures as the cause of abnormal reaction of the patient, or of later complication, without mention of misadventure at the time of the procedure
CPT/HCPCS: 99213; G0463

== ENCOUNTER 2025-06-13 10:21 | Emergency (ER) | payer MEDICAID, SELFPAY ==
[2025-06-13 10:31] VITALS: BP 152/84; PULSE 92; RESP 18; TEMP 36.9; O2SAT 98; BMI 43.9
--- NOTE | 2025-06-13 10:51 | PD.EDRME ---
Rapid Medical Screening Exam RME Arrival date/time: 06/13/25 10:21 Chief Complaint: Abdominal Pain Vital signs: Vital Signs Temperature 98.4 F 06/13/25 10:31 Pulse Rate 92 06/13/25 10:31 Respiratory Rate 18 06/13/25 10:31 Blood Pressure 152/84 H 06/13/25 10:31 Pulse Oximetry (%) 98 06/13/25 10:31 Oxygen Delivery Method Room Air 06/13/25 10:31 Pulse ox 98% room air Vital signs reviewed by provider: Yes RME Narrative: 24-year-old female presents to urgent care complaining abdominal pain that is centered in and around the area of the umbilicus. Denies vomiting, nausea, diarrhea. Denies vaginal bleeding or vaginal discharge. Patient is 19 weeks .
--- NOTE | 2025-06-13 10:53 | XR_ITS ---
Examination: Complete OB ultrasound greater than 14 weeks Date and time of exam: June 13, 2025 1119 hours INDICATIONS: 20 week by history with umbilical pain today Findings: Viable intrauterine single fetus with single amniotic sac presentation breech Cardiac motion 143 BPM Placenta anterior grade 1 Umbilical cord insertion 3 vessel seen Amniotic fluid index 7.1 cm Cervix 5.5 cm. Ovaries obscured by bowel gas Composite estimated gestational age based on BPD, head circumference, abdominal circumference, femur length is 20 weeks 1 day Estimated weight 332.6 g. Survey of intracranial anatomy, spinal anatomy, abdominal anatomy, four-chamber heart performed with no abnormalities identified. Impression: Viable intrauterine gestation breech presentation.
[2025-06-13 11:17] LABS: Basophils # (Auto) 0.0 Thou/mm3 (0.0-0.2); Basophils % (Auto) 1 % (0-2.5); Eosinophils # (Auto) 0.2 Thou/mm3 (0.0-0.5); Eosinophils % (Auto) 2 % (0-10); Hematocrit 38.7 % (36.0-46.0); Hemoglobin 12.9 g/dL (12.0-16.0); Immature Granulocytes Auto 0.03 Thou/mm3 (0.00-0.00); Lymphocytes # (Auto) 1.6 Thou/mm3 (1.0-4.8); Lymphocytes % (Auto) 18 % (10-50); Mean Corpuscular HGB Conc 33.3 g/dl (31.0-37.0); Mean Corpuscular Hemoglobin 28.2 pg (25.0-35.0); Mean Corpuscular Volume 85 fL (80-100); Monocytes # (Auto) 0.6 Thou/mm3 (0.0-0.8); Monocytes % (Auto) 7 % (0-12); Neutrophils # (Auto) 6.4 Thou/mm3 (1.8-7.7); Neutrophils % (Auto) 73 % (37-80); Nucleated Red Blood Cell # 0.00 Thou/mm3 (0.00-0.00); Nucleated Red Blood Cell % 0 /100 WBC (0); Platelet Count 239 Thou/mm3 (140-440); RDW Standard Deviation 41.1 fL (36.4-46.3); Red Blood Count 4.57 Miln/mm3 (4.00-5.20); White Blood Count 8.8 Thou/mm3 (3.6-11.0)
[2025-06-13 11:39] LABS: Alanine Aminotransferase 14 U/L (10-49); Albumin, Serum 4.0 gm/dL (3.5-5.0); Albumin/Globulin Ratio 1.3 (1.2-2.2); Alkaline Phosphatase 51 U/L (46-116); Anion Gap 9 (7-16); Aspartate Amino Transferase 18 U/L (0-34); BUN/Creatinine Ratio 8 Ratio (12-20); Bilirubin,Total 0.3 mg/dL (0.3-1.2); Blood Urea Nitrogen < 5 mg/dL (9-23); Calcium 9.3 mg/dL (8.3-10.6); Calcium (Corrected) 9.3 mg/dL (8.5-10.1); Carbon Dioxide 23.3 mMol/L (20.0-31.0); Chloride 104 mMol/L (98-107); Creatinine (Component) 0.6 mg/dL (0.6-1.3); Estimated Creatinine Clearance 181.0 mL/min (>60); Globulin 3.1 gm/dL (2.3-3.5); Glucose 123 mg/dL (74-106); Lipase 38 U/L (12-53); Osmolality,Calculated 270 (275-295); Potassium 4.1 mMol/L (3.4-5.1); Sodium 136 mMol/L (136-145); Total Protein 7.1 gm/dL (5.7-8.2); eGFR > 60 See Note
--- NOTE | 2025-06-13 11:39 | EDNOTE_ITS ---
ED Abdominal Pain RME/HPI General Chief Complaint: Abdominal Pain Stated complaint: ABD PAIN Time seen by provider: 06/13/25 11:12 Arrival date/time: 06/13/25 10:21 Source: patient Mode of arrival: ambulatory Limitations: no limitations RME / HPI RME / HPI narrative: 24-year-old female presents to urgent care complaining abdominal pain that is centered in and around the area of the umbilicus. Denies vomiting, nausea, diarrhea. Denies vaginal bleeding or vaginal discharge. Patient is 19 weeks . MD complaint: abdominal pain Onset (ago): day(s) (0300 THE NIGHT BEFORE.) Consistency: constant Severity: moderate Severity scale (1-10): 5 Quality: cramping and stabbing Relieving factors: nothing Exacerbating factors: nothing Associated symptoms: denies other symptoms Related Data Previous Rx's ?Medication ?Instructions ?Recorded vitamins with calcium 1 tab PO QDAY 90 days # 90 tabs 04/09/25 no.72-iron 27 mg-folic acid 1 mg tablet ( Vitamins Plus Low Iron) enoxaparin 40 mg/0.4 mL 40 mg (0.4 mL) subcut QDAY 3 0 days 05/07/25 subcutaneous syringe (Lovenox) #12 mL Allergies Allergy/AdvReac Type Severity Reaction Status Date / Time No Known Allergies Allergy Verified 05/16/25 15:49 Review of Systems Constitutional Constitutional: Reports system reviewed and no additional complaints, except as documented Eyes Eyes: Reports system reviewed and no additional complaints, except as documented, Denies dry eyes, Denies exophthalmos and Reports floaters Cardiovascular Cardiovascular: Denies chest pain with activity and Denies claudication ED Exam General Limitations: Present no limitations General appearance: Present alert and in no apparent distress Head Head exam: Present atraumatic Eye Eye exam: Present normal appearance, PERRL and EOMI ENT ENT exam: Present normal exam, normal oropharynx and mucous membranes moist Neck Neck exam: Present normal inspection, full ROM and trachea midline Chest Chest inspection: Present normal inspection and symmetric chest wall rise Respiratory Respiratory exam: Present normal lung sounds bilaterally Cardiovascular Cardiovascular exam: Present regular rate, normal rhythm and normal heart sounds Abdominal Exam Abdominal exam: Present soft, tenderness (Tenderness to palpation at the area of the umbilicus, there is no guarding, no apparent masses and negative for rebound tenderness.) and normal bowel sounds Extremities Exam Extremities exam: Present normal inspection and full ROM Back Exam Back exam: Present normal inspection and full ROM Neurological Exam Neurological exam: Present alert and oriented X3 Psychiatric Psychiatric exam: Present normal affect and normal mood Skin Skin exam: Present warm, dry, intact and normal color Course Course Course Narrative: Patient will have an ultrasound, beta-hCG, CBC, CMP, and Rh testing. Quality Measures none (Negative) Orders Category Date Time Status US OB >= 14 weeks Fetus Stat Exams 06/13/25 10:53 Ordered Beta HCG,Quantitative Stat Lab 06/13/25 11:05 Received CBC Stat Lab 06/13/25 11:05 Completed CMP [Comprehensive Metabolic Panel] Stat Lab 06/13/25 11:05 Received Lipase Stat Lab 06/13/25 11:05 Received Rh Testing Only Stat Lab 06/13/25 11:05 Completed Ordered Vital Signs Vital signs: Vital Signs Temperature 98.4 F 06/13/25 10:31 Pulse Rate 92 06/13/25 10:31 Respiratory Rate 18 06/13/25 10:31 Blood Pressure 152/84 H 06/13/25 10:31 Pulse Oximetry (%) 98 06/13/25 10:31 Oxygen Delivery Method Room Air 06/13/25 10:31 Pulse ox is 98% room air Abdominal Pain MDM Patient data External records reviewed:: Other (specify) (NA) Clinical information provided by:: none (NA) Social determinants that could affect healthcare access:: none (NA) Patient has the following chronic illnesses:: NA How is presenting disease/condition affected by chronic disease/condition?: no chronic disease Medications / Prescriptions Medications or Prescriptions considered but not ordered:: NA Medication administrations:: NA Consultations Consultation(s) initiated? (list below): No Diagnosis Differential diagnosis abdominal pain: acute appendicitis, calculus of kidney and diverticulitis Admission Indicated Admission indicated?: not indicated Admission Request Was there a request for admission?: No Disposition Plan Disposition Plan: Discharge Discharge Attestation Discharge Attestation: The patient and all family members were given an opportunity to ask questions and understood the discharge instructions. Discharge instructions specifically effects, indications for sooner follow up or return to the emergency department, and the expected course of current diagnosis. Patient condition: Stable Discharge Plan Prescriptions/Referrals Prescriptions/Med Rec: No Action enoxaparin [Lovenox] 40 mg/0.4 mL syringe 40 mg subcut QDAY 30 Days Qty: 12 8RF Vitamin Plus Low Iron 27 mg iron- 1 mg tablet 1 tab PO QDAY 90 Days Qty: 90 6RF Referrals: Wilber Anderson MD [Primary Care Provider] - In 1 week Patient/Caregiver Discharge Instructions Print Language: Namibian
[2025-06-13 12:02] LABS: Beta HCG,Quantitative 13385 mIU/mL (<5.0)
--- NOTE | 2025-06-13 12:26 | EDNOTE_ITS ---
ED Abdominal Pain RME/HPI General Chief Complaint: Abdominal Pain Stated complaint: ABD PAIN Time seen by provider: 06/13/25 11:12 Arrival date/time: 06/13/25 10:21 Source: patient Mode of arrival: ambulatory Limitations: no limitations RME / HPI RME / HPI narrative: 24-year-old female presents to urgent care complaining abdominal pain that is centered in and around the area of the umbilicus. Denies vomiting, nausea, diarrhea. Denies vaginal bleeding or vaginal discharge. Patient is 19 weeks . Patient denies any other complaints no medication was taken prior to arrival. MD complaint: abdominal pain Severity: moderate Severity scale (1-10): 5 Quality: cramping and stabbing Relieving factors: nothing Exacerbating factors: nothing Associated symptoms: denies other symptoms Related Data Previous Rx's ?Medication ?Instructions ?Recorded vitamins with calcium 1 tab PO QDAY 90 days # 90 tabs 04/09/25 no.72-iron 27 mg-folic acid 1 mg tablet ( Vitamins Plus Low Iron) enoxaparin 40 mg/0.4 mL 40 mg (0.4 mL) subcut QDAY 3 0 days 05/07/25 subcutaneous syringe (Lovenox) #12 mL Allergies Allergy/AdvReac Type Severity Reaction Status Date / Time No Known Allergies Allergy Verified 05/16/25 15:49 Review of Systems Review of Systems Narrative Review of Systems: Review of system reviewed and within normal limits except mentioned in HPI ED Exam Narrative Physical exam: VITAL SIGNS: Reviewed. GENERAL APPEARANCE: Alert and interactive, follows commands, no acute distress, HEAD AND FACE: Non-traumatic. ENT: PERRL, pink conjunctivitis, eyelid no trauma, Mucous membrane moist. NECK: Supple, nontender, no nuchal rigidity. CHEST: No tenderness, no crepitus, no paradoxical movement, no retractions. LUNGS: Clear, well ventilated, symmetric, no rales, no wheezing, no ronchi, no stridor, good breath sounds bilaterally. HEART: Regular rate, regular rhythm, no murmur, no gallops. ABDOMEN: Soft, positive bowel sounds, nondistended, no guarding, nontender, no rebound, no masses, I did not notice any discharges of the umbilicus on my initial examination RECTAL: Deferred. GENITAL: Deferred. NEUROLOGICAL: Gross motor function intact sensory function intact, Appropriate for age. MUSCULOSKELETAL: low back nontender, full range of motion. EXTREMITIES: Nontender, full range of motion. SKIN: Color pink, dry, no rash, no lacerations, no abrasions, no contusions. LYMPHATICS: Deferred. General Limitations: Present no limitations General appearance: Present alert and in no apparent distress Course Course Course Narrative: Patient will have an ultrasound, beta-hCG, CBC, CMP, and Rh testing. Quality Measures none Orders Category Date Time Status US OB >= 14 weeks Fetus Stat Exams 06/13/25 10:53 Completed Beta HCG,Quantitative Stat Lab 06/13/25 11:05 Completed CBC Stat Lab 06/13/25 11:05 Completed CMP [Comprehensive Metabolic Panel] Stat Lab 06/13/25 11:05 Completed Lipase Stat Lab 06/13/25 11:05 Completed Rh Testing Only Stat Lab 06/13/25 11:05 Completed Vital Signs Vital signs: Vital Signs Temperature 98.4 F 06/13/25 10:31 Pulse Rate 92 06/13/25 10:31 Respiratory Rate 18 06/13/25 10:31 Blood Pressure 152/84 H 06/13/25 10:31 Pulse Oximetry (%) 98 06/13/25 10:31 Oxygen Delivery Method Room Air 06/13/25 10:31 Abdominal Pain MDM MDM Narrative MDM Narrative:: 24-year-old female presents to urgent care complaining abdominal pain that is centered in and around the area of the umbilicus. Denies vomiting, nausea, diarrhea. Denies vaginal bleeding or vaginal discharge. Patient is 19 weeks . Patient denies any other complaints no medication was taken prior to arrival. Patient's laboratory workup all came back unremarkable no metabolic or infectious process noted. Ultrasound of the showed single live intrauterine gestation with a goal heartbeat of 143 bpm, about 20 weeks gestation. Results discussed with the patient. Patient data External records reviewed:: None Clinical information provided by:: patient Social determinants that could affect healthcare access:: none Patient has the following chronic illnesses:: None How is presenting disease/condition affected by chronic disease/condition?: no chronic disease Evaluation data The following diagnostics were reviewed and interpreted by me:: lab results and radiology exam(s) Lab and/or radiology exams considered but not ordered:: None Interpretation Summary: See results MDM Medications / Prescriptions Medications or Prescriptions considered but not ordered:: None Medication administrations:: None Consultations Consultation(s) initiated? (list below): No Diagnosis Differential diagnosis abdominal pain: abdominal pain and constipation Most likely diagnosis given after review of the tests above:: Abdominal pain in , 20 weeks gestation Admission Indicated Admission indicated?: not indicated Admission Request Was there a request for admission?: No Disposition Plan Disposition Plan: Discharge Discharge Attestation Discharge Attestation: The patient was given an opportunity to ask questions and understood the discharge instructions. Discharge instructions specifically effects, indications for sooner follow up or return to the emergency department, and the expected course of current diagnosis. Patient condition: Stable Discharge Plan Plan Patient Disposition: HOME (Self Care) Discharge Disposition comment: Stable Prescriptions/Referrals Prescriptions/Med Rec: No Action enoxaparin [Lovenox] 40 mg/0.4 mL syringe 40 mg subcut QDAY 30 Days Qty: 12 8RF Vitamin Plus Low Iron 27 mg iron- 1 mg tablet 1 tab PO QDAY 90 Days Qty: 90 6RF Referrals: Wilber Anderson MD [Primary Care Provider] - In 1 week Problem List Clinical Impression: Abdominal pain affecting Patient/Caregiver Discharge Instructions Discharge Activity: activity as tolerated Education Materials: Abdominal Pain Additional Instructions: Thank you for the opportunity for serving you today. You are stable for discharged . You are advised to: Follow-up with your PCP in 1 to 2 days Return to ED for worsening of symptoms, abnormal vaginal discharge, spotting, bleeding fever, vomiting Increase oral fluids Your laboratory workup including ultrasound all came back normal today. You can take [id number] Tylenol as needed for pain Print Language: Estonian Stand Alone Forms: Leatha Award Info., Patient Portal Info Letter FLEX/BREE Supervising Physician FLEX/BREE Supervising Physician: MD Madeleine
== END 2025-06-13 13:06 | disposition home or self-care (01) ==
PROVIDERS: Physician Assistant; Emergency Provider Family Medicine; PCP Obstetrics & Gynecology
DX: O26.892 Other specified pregnancy related conditions, second trimester (principal); R10.33 Periumbilical pain; Z3A.20 20 weeks gestation of pregnancy
CPT/HCPCS: 36415; 76805; 80053; 83690; 84702; 85025; 86901; 99283

== ENCOUNTER 2025-06-18 09:14 | Outpatient (AMB) | payer MEDICAID, SELFPAY ==
[2025-06-18 09:27] VITALS: BP 127/78; PULSE 90; RESP 18; TEMP 36.4; O2SAT 98; BMI 33.5
--- NOTE | 2025-06-18 09:27 | OBCLNT_ITS ---
Vital Signs 06/18/25 09:27 Height 1.63 m Height Method Stated Weight 88.961 kg Weight Measurement Method Standing Scale BMI 33.5 BP 127/78 Blood Pressure Source Automatic Cuff Blood Pressure Location Left Upper Arm Position Sitting Respiration 18 Pulse 90 Pulse Source Monitor Temp 97.6 F Temp Source Oral Pulse Oximetry (%) 98 Oxygen Delivery Method Room Air Allergies/Home Meds Allergies & Medications Allergies No Known Allergies Allergy (Verified 08/23/25 10:44) Medication Reconciliation vitamins with calcium no.72-iron 27 mg-folic acid 1 mg tablet ( Vitamins Plus Low Iron) 1 tab PO QDAY 90 days #90 tabs 04/09/25 [Rx Confirmed 08/23/25] enoxaparin 40 mg/0.4 mL subcutaneous syringe (Lovenox) 40 mg (0.4 mL) subcut QDAY 30 days #12 mL 05/07/25 [Rx Confirmed 08/23/25] Intake Visit Data Collection New Patient or Established: Established Patient (seen at [facility] within 3 years) Reason for Visit:: CARE Seen by Clinical Staff ONLY (RN/MA): No 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 1. Little interest or pleasure in doing things: not at all 2. Feeling down, depressed, or hopeless: not at all Total score: 0 PHQ-9 3. Trouble falling or staying asleep, or sleeping too much: Not at all 4. Feeling tired or having little energy: Not at all 5. Poor appetite or overeating: Not at all 6. Feeling bad about yourself - or that you are a failure or have let yourself or your family down: Not at all 7. Trouble concentrating on things, such as reading the newspaper or watching television: Not at all 8. Moving or speaking so slowly that other people could have noticed? - Or the opposite - being so fidgety or restless that you have been moving around a lot more than usual: not at all 9. Thoughts that you would be better off or of hurting yourself in some way: Not at all Total score: 0 Source: Developed by Drs. Myke Danielson, Lianet Tobar, Shekhar Pitts and colleagues, with an educational yaquelin from [employer]. 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 for oBI. no complaints of SAB, c/o Nausea. history of blood clot in lungs, taking Eliquis. rx given for Dicligesis bid #60. start PNV daily, ob panel ordered, sono scheduled at [facility] for viability and dates, sab precaution discussed, RTC 4 week with OB,ER precaution given 04/09/25 -?-?-?-?-?-?-?-?-?-?-?-?- 10w 2d 119.918 kg 130/86 at 10w2d gestation, presents for routine care. History notable for 2 prior C-sections, pulmonary embolism, rectal bleeding on anticoagulation, and pyelonephritis. Reports ongoing nausea (hyperemesis) but has not picked up Diclegis; previously prescribed Tigan. Stopped Eliquis upon confirmation of . Reports hand swelling; denies CTX/LOF/VB. FHT 158 bpm. LMP 01/27/25, KAL 11/03/25. Labs reviewed: negative infectious panel, Hgb 13. Plan: Schedule formal ultrasound to confirm ge stational age Genetic testing panel + kidney/liver fun ction labs Diclegis prescription sent; continue Tig an as needed vitamins sent to pharmacy Order coagulation profile Urgent MFM referral for anticoagulation planning Discuss Lovenox if indicated Encourage hydration and small, frequent meals Avoid ibuprofen; limit Tylenol to 1/day Monitor edema Routine follow-up in 4 weeks Laboratory, Imaging, and Diagnostic Test Results - Date: 03/22/2025 - Hepatitis B: Negative - Hepatitis C: Negative - RPR: Non-reactive - Rubella: Immune - Blood group: B positive - Antibody screen: Negative - HIV: Negative - Gonorrhea-chlamydia: Negative - Hemoglobin: 13 g/dL - Drug screen: Negative - Ultrasound (date not specified): - heart rate: 158 bpm - Estimated gestational age: 9 weeks a nd 4 days heart tones: 158 bpm. 05/07/25 -?-?-?-?-?-?-?-?-?-?-?-?- 14w 2d 119.862 kg 128/78 at 14w2d. Hx 2 prior C/S, recent PE on h ormonal contraceptives. Unilateral CRUZ x2 days. BMI 45. On Diclegis/Phenergan for nausea. MFM consult 05/02, US normal, male fetus. Coag studies normal except low antithrombin antigen. NIPT negative Lovenox SQ daily entire + 6w , dietitian consult for obesity, extra-strength Tylenol for CRUZ, avoid hormonal BC, FU 4w. 05/16/25 -?-?-?-?-?-?-?-?-?-?-?-?- 15w 4d 119.805 kg 123/78 absent 15w4d, on Lovenox for prior PE, c/o large painful bruise and bump at recent abdominal injection site with reported med leakage. Denies bruising elsewhere. PE: localized bruising with palpable bump. Plan: reviewed S C technique?partial needle insertion, slow inject, rotate sites, avoid vasculature, hold skin taut. May switch to thigh if needed. RTC 05/31; sooner if worsens. 06/18/25 -?-?-?-?-?-?-?-?-?-?-?-?- 20w 2d 88.961 kg 127/78 absent cephalic 31 145 active - Patient reports recent ER visit 2 days ago for remedios-umbilical abdominal pain - Workup was negative, including ultrasound within normal limits - Ongoing nausea, not improving - Denies cramping or spotting - Reports active movement - Small bruises at Lovenox injection sit es, improved from previous visit - Notes sensitivity to certain foods dur ing - Attributes recent stomach upset to d ietary changes - Denies any other new symptoms or concerns - Follow up appointment at [facility] this month - Return for next visit in 4 we eks - Complete glucose tolerance test (fasti ng) 1-2 days before next appointment - Continue Lovenox injections as prescri bed 07/24/25 -?-?-?-?-?-?-?-?-?-?-?-?- 25w 3d 121.336 kg 120/74 absent cephalic 26 14 9 active - Baby is active - No specific complaints or concerns m entioned - Recent healthcare interactions: - Attended a [facility] appoint ment in June (around the ) - Scheduled for another ultrasound on the due to inability to visualize baby's fingers in previous scan - Schedule 3-hour glucose tolerance test - Continue Lovenox as prescribed - Follow up in 2 weeks - Attend scheduled ultrasound appointmen t at [facility] on August 12 08/07/25 -?-?-?-?-?-?-?-?-?-?-?-?- 27w 3d 121.279 kg 127/85 absent cephalic 28 15 0 active No contractions, LOF, VB and reports good FM. Denies CRUZ, VC, and epigastric pain. - She had an abnormal one-hour glucose t olerance test but her subsequent 3-hour glucose tolerance test was normal. - She had questions about her due date a nd delivery timing related to her medical history. - Her MFM appointment was moved to August 20. - Return for follow-up visit in 2 weeks - MFM appointment rescheduled to August 20 - Potential delivery at 37 weeks due to lupus and other comorbidities KAL Calculator Estimated Delivery Date Method Current WG Current Estimate 11/03/25 LMP (Certain) 30w 2d Other Estimates 11/10/25 Ultrasound #1 29w 2d Specific Issue/Plans Vital Signs - BMI: 45 kg/m? Laboratory, Imaging, and Diagnostic Test Results - Date: 04/10/2025 (reported on 04/22/2025) - Lupus panel: Within normal limits - Lupus anticoagulant: Not detected - Von Willebrand factor: Within normal limits - Factor 8: 131 - INR: 1.0 - Prothrombin time: 10.7 seconds - Antithrombin: 3.99 - Antithrombin antigen: Low - APTT: 29 (within normal limits) Notes Visit Date: 07/24/25 Last Updated by: Wilber Anderson MD - One-hour glucose tolerance test: 147 mg/dL (cutoff: 140 mg/dL) - Hemoglobin A1c: 5.8% Assessment & Plan Diagnosis / Problem List (1) Supervision of high risk , unspecified, second trimester: Status: Acute Plan Problem List - - History of pulmonary embolism - Nausea Assessment at 24 weeks gestation with history of two prior sections, currently on Lovenox for prior pulmonary embolism. Patient recently presented to ER with remedios-umbilical abdominal pain, but workup and ultrasound were within normal limits. Ongoing nausea reported. Small, non-concerning fat clump noted at Lovenox injection site. heart rate 149 bpm, within normal range. No reports of cramping, spotting, or decreased movement. Plan - Follow up appointment at [facility] this month - Return for next visit in 4 weeks - Complete glucose tolerance test (fasting) 1-2 days before next appointment - Continue Lovenox injections as prescribed 1. Progress Reviewed gestational age, growth, and heart rate. Planned frequent visits (every 2 weeks until 36 weeks, then weekly). 2. Instructed patient to monitor movements and report decreases immediately. 3. Testing Counseled on routine third-trimester labs per guidelines. Discussed potential need for ultrasound or monitoring based on risk factors. 4. Preeclampsia Precaution Educated on preeclampsia signs: severe headache, vision changes, right upper quadrant pain, sudden swelling. Advised urgent reporting of symptoms and discussed blood pressure monitoring if high risk. 5. Labor Precautions Reviewed labor signs: regular contractions, pelvic pressure, back pain, bleeding, or fluid leakage. Instructed to seek immediate care for these symptoms. 6. Lifestyle and Delivery Preparation Reinforced vitamins, nutrition, and safe activity. Discussed plan, pain management, and . Advised on labor preparation (e.g., hospital bag) and expectations. 7. Psychosocial Support Assessed emotional well-being and offered resources for mental health or parenting support.
== END 2025-06-18 09:49 | disposition home or self-care (01) ==
LOC: HODSOBC 09:14
PROVIDERS: Supervising Provider Obstetrics & Gynecology; Visit Provider Obstetrics & Gynecology
DX: O09.892 Supervision of other high risk pregnancies, second trimester (principal); O21.0 Mild hyperemesis gravidarum; O09.292 Supervision of pregnancy with other poor reproductive or obstetric history, second trimester; O34.219 Maternal care for unspecified type scar from previous cesarean delivery; Z3A.20 20 weeks gestation of pregnancy; Z86.711 Personal history of pulmonary embolism
CPT/HCPCS: 99214; G0463

== ENCOUNTER 2025-07-24 09:28 | Outpatient (AMB) | payer MEDICAID, SELFPAY ==
[2025-07-24 09:35] VITALS: BP 120/74; PULSE 90; RESP 18; TEMP 36.5; O2SAT 97; BMI 45.6
--- NOTE | 2025-07-24 09:35 | OBCLNT_ITS ---
Vital Signs 07/24/25 09:35 Height 1.63 m Height Method Stated Weight 121.336 kg Weight Measurement Method Standing Scale BMI 45.6 BP 120/74 Blood Pressure Source Automatic Cuff Blood Pressure Location Left Upper Arm Position Sitting Respiration 18 Pulse 90 Pulse Source Monitor Temp 97.7 F Temp Source Oral Pulse Oximetry (%) 97 Oxygen Delivery Method Room Air Allergies/Home Meds Allergies & Medications Allergies No Known Allergies Allergy (Verified 07/24/25 09:36) Medication Reconciliation vitamins with calcium no.72-iron 27 mg-folic acid 1 mg tablet ( Vitamins Plus Low Iron) 1 tab PO QDAY 90 days #90 tabs 04/09/25 [Rx Confirmed 07/24/25] enoxaparin 40 mg/0.4 mL subcutaneous syringe (Lovenox) 40 mg (0.4 mL) subcut QDAY 30 days #12 mL 05/07/25 [Rx Confirmed 07/24/25] Intake Visit Data Collection New Patient or Established: Established Patient (seen at [facility] within 3 years) Reason for Visit:: CARE Seen by Clinical Staff ONLY (RN/MA): No Magnetic Locater Required: No Do You Feel Safe at Home: Yes Authorities Contacted: N/A PCP or OBGYN visit in last 3 months: Yes Hx Now: Yes Are you currently on any form of Control: No Pain Present Currently: No Pain Scale Used: [place]/Numerical Pain scale:: 0 Smoking Status Smoking Status: Never smoker Questionnaires Covid-19 Vaccine Questionnaire Has patient been vacinated for Covid-19 Have you been vacinated for Covid-19: Yes PHQ-9 PHQ-2 Over the last 2 weeks, how often have you been bothered by any of the following problems? 1. Little interest or pleasure in doing things: not at all 2. Feeling down, depressed, or hopeless: not at all Total score: 0 PHQ-9 3. Trouble falling or staying asleep, or sleeping too much: Not at all 4. Feeling tired or having little energy: Not at all 5. Poor appetite or overeating: Not at all 6. Feeling bad about yourself - or that you are a failure or have let yourself or your family down: Not at all 7. Trouble concentrating on things, such as reading the newspaper or watching television: Not at all 8. Moving or speaking so slowly that other people could have noticed? - Or the opposite - being so fidgety or restless that you have been moving around a lot more than usual: not at all 9. Thoughts that you would be better off or of hurting yourself in some way: Not at all Total score: 0 Source: Developed by Drs. Myke Danielson, Lianet Tobar, Shekhar Pitts and colleagues, with an educational yaquelin from [employer]. 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 for oBI. no complaints of SAB, c/o Nausea. history of blood clot in lungs, taking Eliquis. rx given for Dicligesis bid #60. start PNV daily, ob panel ordered, sono scheduled at [facility] for viability and dates, sab precaution discussed, RTC 4 week with OB,ER precaution given 04/09/25 -?-?-?-?-?-?-?-?-?-?-?-?- 10w 2d 119.918 kg 130/86 at 10w2d gestation, presents for routine care. History notable for 2 prior C-sections, pulmonary embolism, rectal bleeding on anticoagulation, and pyelonephritis. Reports ongoing nausea (hyperemesis) but has not picked up Diclegis; previously prescribed Tigan. Stopped Eliquis upon confirmation of . Reports hand swelling; denies CTX/LOF/VB. FHT 158 bpm. LMP 01/27/25, KAL 11/03/25. Labs reviewed: negative infectious panel, Hgb 13. Plan: Schedule formal ultrasound to confirm ge stational age Genetic testing panel + kidney/liver fun ction labs Diclegis prescription sent; continue Tig an as needed vitamins sent to pharmacy Order coagulation profile Urgent MFM referral for anticoagulation planning Discuss Lovenox if indicated Encourage hydration and small, frequent meals Avoid ibuprofen; limit Tylenol to 1/day Monitor edema Routine follow-up in 4 weeks Laboratory, Imaging, and Diagnostic Test Results - Date: 03/22/2025 - Hepatitis B: Negative - Hepatitis C: Negative - RPR: Non-reactive - Rubella: Immune - Blood group: B positive - Antibody screen: Negative - HIV: Negative - Gonorrhea-chlamydia: Negative - Hemoglobin: 13 g/dL - Drug screen: Negative - Ultrasound (date not specified): - heart rate: 158 bpm - Estimated gestational age: 9 weeks a nd 4 days heart tones: 158 bpm. 05/07/25 -?-?-?-?-?-?-?-?-?-?-?-?- 14w 2d 119.862 kg 128/78 at 14w2d. Hx 2 prior C/S, recent PE on hormonal contraceptives. Unilateral CRUZ x2 days. BMI 45. On Diclegis/Phenergan for nausea. MFM consult 05/02, US normal, male fetus. Coag studies normal except low antithrombin antigen. NIPT negative Lovenox SQ daily entire + 6w , dietitian consult for obesity, extra-strength Tylenol for CRUZ, avoid hormonal BC, FU 4w. 05/16/25 -?-?-?-?-?-?-?-?-?-?-?-?- 15w 4d 119.805 kg 123/78 absent 15w4d, on Lovenox for prior PE, c/o large painful bruise and bump at recent abdominal injection site with reported med leakage. Denies bruising elsewhere. PE: localized bruising with palpable bump. Plan: reviewed S C technique?partial needle insertion, slow inject, rotate sites, avoid vasculature, hold skin taut. May switch to thigh if needed. RTC 05/31; sooner if worsens. 07/24/25 -?-?-?-?-?-?-?-?-?-?-?-?- 25w 3d 121.336 kg 120/74 absent cephalic 26 14 9 active - Baby is active - No specific complaints or concerns m entioned - Recent healthcare interactions: - Attended a [facility] appoint ment in June (around the ) - Scheduled for another ultrasound on the due to inability to visualize baby's fingers in previous scan - Schedule 3-hour glucose tolerance test - Continue Lovenox as prescribed - Follow up in 2 weeks - Attend scheduled ultrasound appointmen t at [facility] on August 12 KAL Calculator Estimated Delivery Date Method Current WG Current Estimate 11/03/25 LMP (Certain) 25w 3d Other Estimates 11/10/25 Ultrasound #1 24w 3d Specific Issue/Plans Vital Signs - BMI: 45 kg/m? Laboratory, Imaging, and Diagnostic Test Results - Date: 04/10/2025 (reported on 04/22/2025) - Lupus panel: Within normal limits - Lupus anticoagulant: Not detected - Von Willebrand factor: Within normal limits - Factor 8: 131 - INR: 1.0 - Prothrombin time: 10.7 seconds - Antithrombin: 3.99 - Antithrombin antigen: Low - APTT: 29 (within normal limits) Notes Visit Date: 07/24/25 Last Updated by: Wilber Anderson MD - One-hour glucose tolerance test: 147 mg/dL (cutoff: 140 mg/dL) - Hemoglobin A1c: 5.8% Office Procedures OB Clinic LOC & Office Proc's Nursing/Assessment Patient Status: Established Patient OB Clinic Nursing Assessment: Medication Reconciliation, Update PMH in EMR and Vital Signs OB Clinic Coordination of Care: Complex Care and Chronic Disease 1-5, Consent,records obtained, informed consent, Education Simp Pt/Fam, Lab and Imaging orders, Results/Orders obtained and Staff clarify orders Special Needs: Heart tones Established Patient Charge Established Patient Point Assignment: 135 Established Patient Point Charge: EP Level 4 (120-155) Assessment & Plan Diagnosis / Problem List (1) Pre-existing essential hypertension complicating , second trimester : Status: Acute (2) Pulmonary embolism: Status: Acute (3) Supervision of high risk , unspecified, second trimester: Status: Acute
== END 2025-07-24 10:05 | disposition home or self-care (01) ==
LOC: HODSOBC 09:28
PROVIDERS: Supervising Provider Obstetrics & Gynecology; Visit Provider Obstetrics & Gynecology
DX: O09.892 Supervision of other high risk pregnancies, second trimester (principal); O10.012 Pre-existing essential hypertension complicating pregnancy, second trimester; O99.512 Diseases of the respiratory system complicating pregnancy, second trimester; I26.99 Other pulmonary embolism without acute cor pulmonale; O09.292 Supervision of pregnancy with other poor reproductive or obstetric history, second trimester; O34.219 Maternal care for unspecified type scar from previous cesarean delivery; Z3A.25 25 weeks gestation of pregnancy; Z79.01 Long term (current) use of anticoagulants
CPT/HCPCS: 99214; G0463

== ENCOUNTER 2025-08-07 09:46 | Outpatient (AMB) | payer MEDICAID, SELFPAY ==
--- NOTE | 2025-08-07 09:56 | OBCLNT_ITS ---
Vital Signs 08/07/25 09:57 Height 1.63 m Height Method Measured Weight 121.279 kg Weight Measurement Method Standing Scale BMI 45.6 BP 127/85 H Blood Pressure Source Automatic Cuff Blood Pressure Location Right Upper Arm Position Sitting Respiration 18 Pulse 82 Pulse Source Monitor Temp 97.4 F Temp Source Temporal Artery Scan Pulse Oximetry (%) 98 Oxygen Delivery Method Room Air Allergies/Home Meds Allergies & Medications Allergies No Known Allergies Allergy (Verified 07/24/25 09:36) Intake Visit Data Collection New Patient or Established: Established Patient (seen at [facility] within 3 years) Reason for Visit:: OBC FOLLOW UP Do You Feel Safe at Home: Yes Authorities Contacted: N/A PCP or OBGYN visit in last 3 months: Yes Date of Last PCP or OBGYN visit: 07/24/25 Hx Now: Yes Are you currently on any form of Control: No Pain Present Currently: No Smoking Status Smoking Status: Never smoker Questionnaires PHQ-9 PHQ-2 Over the last 2 weeks, how often have you been bothered by any of the following problems? 1. Little interest or pleasure in doing things: not at all PHQ-9 8. Moving or speaking so slowly that other people could have noticed? - Or the opposite - being so fidgety or restless that you have been moving around a lot more than usual: not at all Source: Developed by Drs. Myke Danielson, Lianet Tobar, Shekhar Pitts and colleagues, with an educational yaquelin from [employer]. 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 Patient was informed that recording will be read and reviewed by myself before inclusion in the medical chart. The patient is a 2 para 1, 27 weeks, presenting for a routine visit. She underwent a 3-hour glucose test at [facility] on Tuesday. She reports that her is progressing well, although she has noticed some bruising. Care OB Visit Log OB Flowsheet Initial Weight: Not Recorded Date -?-?-?-?-?-?-?-?-?-?-?-?- EGA Weight BP Alb Glu CTX Pres Fundal ht FHR Mov Dilation Station Effacement Hx Notes Visit Note 03/19/25 -?-?-?-?-?-?-?-?-?-?-?-?- 7w 2d 119.068 kg 128/84 absent 8 absent 24 yo prev c/s 2. for oBI. no complaints of SAB, c/o Nausea. history of blood clot in lungs, taking Eliquis. rx given for Dicligesis bid #60. start PNV daily, ob panel ordered, sono scheduled at [facility] for viability and dates, sab precaution discussed, RTC 4 week with OB,ER precaution given 04/09/25 -?-?-?-?-?-?-?-?-?-?-?-?- 10w 2d 119.918 kg 130/86 at 10w2d gestation, presents for routine care. History notable for 2 prior C-sections, pulmonary embolism, rectal bleeding on anticoagulation, and pyelonephritis. Reports ongoing nausea (hyperemesis) but has not picked up Diclegis; previously prescribed Tigan. Stopped Eliquis upon confirmation of . Reports hand swelling; denies CTX/LOF/VB. FHT 158 bpm. LMP 01/27/25, KAL 11/03/25. Labs reviewed: negative infectious panel, Hgb 13. Plan: Schedule formal ultrasound to confirm ge stational age Genetic testing panel + kidney/liver fun ction labs Diclegis prescription sent; continue Tig an as needed vitamins sent to pharmacy Order coagulation profile Urgent MFM referral for anticoagulation planning Discuss Lovenox if indicated Encourage hydration and small, frequent meals Avoid ibuprofen; limit Tylenol to 1/day Monitor edema Routine follow-up in 4 weeks Laboratory, Imaging, and Diagnostic Test Results - Date: 03/22/2025 - Hepatitis B: Negative - Hepatitis C: Negative - RPR: Non-reactive - Rubella: Immune - Blood group: B positive - Antibody screen: Negative - HIV: Negative - Gonorrhea-chlamydia: Negative - Hemoglobin: 13 g/dL - Drug screen: Negative - Ultrasound (date not specified): - heart rate: 158 bpm - Estimated gestational age: 9 weeks a nd 4 days heart tones: 158 bpm. 05/07/25 -?-?-?-?-?-?-?-?-?-?-?-?- 14w 2d 119.862 kg 128/78 at 14w2d. Hx 2 prior C/S, recent PE on hormonal contraceptives. Unilateral CRUZ x2 days. BMI 45. On Diclegis/Phenergan for nausea. MFM consult 05/02, US normal, male fetus. Coag studies normal except low antithrombin antigen. NIPT negative Lovenox SQ daily entire + 6w , dietitian consult for obesity, extra-strength Tylenol for CRUZ, avoid hormonal BC, FU 4w. 05/16/25 -?-?-?-?-?-?-?-?-?-?-?-?- 15w 4d 119.805 kg 123/78 absent 15w4d, on Lovenox for prior PE, c/o large painful bruise and bump at recent abdominal injection site with reported med leakage. Denies bruising elsewhere. PE: localized bruising with palpable bump. Plan: reviewed S C technique?partial needle insertion, slow inject, rotate sites, avoid vasculature, hold skin taut. May switch to thigh if needed. RTC 05/31; sooner if worsens. 07/24/25 -?-?-?-?-?-?-?-?-?-?-?-?- 25w 3d 121.336 kg 120/74 absent cephalic 26 14 9 active - Baby is active - No specific complaints or concerns m entioned - Recent healthcare interactions: - Attended a [facility] appoint ment in June (around the ) - Scheduled for another ultrasound on the due to inability to visualize baby's fingers in previous scan - Schedule 3-hour glucose tolerance test - Continue Lovenox as prescribed - Follow up in 2 weeks - Attend scheduled ultrasound appointmen t at [facility] on August 12 08/07/25 -?-?-?-?-?-?-?-?-?-?-?-?- 27w 3d 121.279 kg 127/85 absent cephalic 28 15 0 active No contractions, LOF, VB and reports good FM. Denies CRUZ, VC, and epigastric pain. - She had an abnormal one-hour glucose t olerance test but her subsequent 3-hour glucose tolerance test was normal. - She had questions about her due date a nd delivery timing related to her medical history. - Her MFM appointment was moved to August 20. - Return for follow-up visit in 2 weeks - MFM appointment rescheduled to August 20 - Potential delivery at 37 weeks due to lupus and other comorbidities KAL Calculator Estimated Delivery Date Method Current WG Current Estimate 11/03/25 LMP (Certain) 27w 4d Other Estimates 11/10/25 Ultrasound #1 26w 4d Specific Issue/Plans Vital Signs - BMI: 45 kg/m? Laboratory, Imaging, and Diagnostic Test Results - Date: 04/10/2025 (reported on 04/22/2025) - Lupus panel: Within normal limits - Lupus anticoagulant: Not detected - Von Willebrand factor: Within normal limits - Factor 8: 131 - INR: 1.0 - Prothrombin time: 10.7 seconds - Antithrombin: 3.99 - Antithrombin antigen: Low - APTT: 29 (within normal limits) Notes Visit Date: 07/24/25 Last Updated by: Wilber Anderson MD - One-hour glucose tolerance test: 147 mg/dL (cutoff: 140 mg/dL) - Hemoglobin A1c: 5.8% Office Procedures OBC Clinic LOC & Office Proc's Nursing/Assessment Patient Status: Established Patient OB Clinic Nursing Assessment: Medication Reconciliation, Update PMH in EMR and Vital Signs OB Clinic Coordination of Care: Complex Care and Chronic Disease 1-5, Education Complex Pt/Fam, Consent,records obtained, informed consent and Lab and Imaging orders Special Needs: Heart tones Established Patient Charge Established Patient Point Assignment: 125 Established Patient Point Charge: EP Level 4 (120-155) Assessment & Plan Diagnosis / Problem List (1) Supervision of high risk , unspecified, second trimester: Status: Acute Plan Problem List - , 27 weeks - Lupus Assessment 27-week routine visit with normal progress. Patient had an abnormal one-hour glucose test, but subsequent 3-hour glucose test was normal. History of lupus and other comorbidities noted, which may necessitate delivery at 37 weeks. Patient has questions regarding due date and delivery timing due to her medical history. Plan - Return for follow-up visit in 2 weeks - [facility] appointment rescheduled to August 20 - Potential delivery at 37 weeks due to lupus and other comorbidities 1. Progress Reviewed gestational age, growth, and heart rate. Planned frequent visits (every 2 weeks until 36 weeks, then weekly). 2. Instructed patient to monitor movements and report decreases immediately. 3. Testing Counseled on routine third-trimester labs per guidelines. Discussed potential need for ultrasound or monitoring based on risk factors. 4. Preeclampsia Precaution Educated on preeclampsia signs: severe headache, vision changes, right upper quadrant pain, sudden swelling. Advised urgent reporting of symptoms and discussed blood pressure monitoring if high risk. 5. Labor Precautions Reviewed labor signs: regular contractions, pelvic pressure, back pain, bleeding, or fluid leakage. Instructed to seek immediate care for these symptoms. 6. Lifestyle and Delivery Preparation Reinforced vitamins, nutrition, and safe activity. Discussed plan, pain management, and . Advised on labor preparation (e.g., hospital bag) and expectations. 7. Psychosocial Support Assessed emotional well-being and offered resources for mental health or parenting support.
[2025-08-07 09:57] VITALS: BP 127/85; PULSE 82; RESP 18; TEMP 36.3; O2SAT 98; BMI 45.6
== END 2025-08-07 10:18 | disposition home or self-care (01) ==
LOC: HODSOBC 09:46
PROVIDERS: Supervising Provider Obstetrics & Gynecology; Visit Provider Obstetrics & Gynecology
DX: O09.92 Supervision of high risk pregnancy, unspecified, second trimester (principal); Z3A.27 27 weeks gestation of pregnancy
CPT/HCPCS: 99214; G0463

== ENCOUNTER 2025-08-23 10:20 | Outpatient (AMB) | payer MEDICAID, SELFPAY ==
--- NOTE | 2025-08-23 10:43 | AMB.OBVISIT ---
Vital Signs 08/23/25 10:50 Height 1.63 m Height Method Stated Weight 122.64 kg Weight Measurement Method Standing Scale BMI 46.1 BP 122/80 Blood Pressure Source Automatic Cuff Blood Pressure Location Left Upper Arm Position Sitting Respiration 16 Pulse 120 H Pulse Source Monitor Temp 97.2 F Temp Source Oral Pulse Oximetry (%) 98 Oxygen Delivery Method Room Air Allergies/Home Meds Allergies & Medications Allergies No Known Allergies Allergy (Verified 09/17/25 12:46) Medication Reconciliation vitamins with calcium no.72-iron 27 mg-folic acid 1 mg tablet ( Vitamins Plus Low Iron) 1 tab PO QDAY 90 days #90 tabs 04/09/25 [Rx Confirmed 09/17/25] enoxaparin 40 mg/0.4 mL subcutaneous syringe (Lovenox) 40 mg (0.4 mL) subcut QDAY 30 days #12 mL 05/07/25 [Rx Confirmed 09/17/25] Intake Visit Data Collection New Patient or Established: Established Patient (seen at [facility] within 3 years) Reason for Visit:: OBC Seen by Clinical Staff ONLY (RN/MA): No 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 1. Little interest or pleasure in doing things: not at all 2. Feeling down, depressed, or hopeless: not at all Total score: 0 PHQ-9 3. Trouble falling or staying asleep, or sleeping too much: Not at all 4. Feeling tired or having little energy: Not at all 5. Poor appetite or overeating: Not at all 6. Feeling bad about yourself - or that you are a failure or have let yourself or your family down: Not at all 7. Trouble concentrating on things, such as reading the newspaper or watching television: Not at all 8. Moving or speaking so slowly that other people could have noticed? - Or the opposite - being so fidgety or restless that you have been moving around a lot more than usual: not at all 9. Thoughts that you would be better off or of hurting yourself in some way: Not at all Total score: 0 If you checked off any problems, how difficult have these problems made it for you to do your work, take care of things at home, or get along with other people?: not difficult at all Source: Developed by Drs. Myke Danielson, Lianet Tobar, Shekhar Pitts and colleagues, with an educational yaquelin from [employer]. 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 for oBI. no complaints of SAB, c/o Nausea. history of blood clot in lungs, taking Eliquis. rx given for Dicligesis bid #60. start PNV daily, ob panel ordered, sono scheduled at [facility] for viability and dates, sab precaution discussed, RTC 4 week with OB,ER precaution given 04/09/25 <del>?</del> 10w 2d 119.918 kg 130/86 at 10w2d gestation, presents for routine care. History notable for 2 prior C-sections, pulmonary embolism, rectal bleeding on anticoagulation, and pyelonephritis. Reports ongoing nausea (hyperemesis) but has not picked up Diclegis; previously prescribed Tigan. Stopped Eliquis upon confirmation of . Reports hand swelling; denies CTX/LOF/VB. FHT 158 bpm. LMP 01/27/25, KAL 11/03/25. Labs reviewed: negative infectious panel, Hgb 13. Plan: Schedule formal ultrasound to confirm gestational age Genetic testing panel + kidney/liver function labs Diclegis prescription sent; continue Tigan as needed vitamins sent to pharmacy Order coagulation profile Urgent MFM referral for anticoagulation planning Discuss Lovenox if indicated Encourage hydration and small, frequent meals Avoid ibuprofen; limit Tylenol to 1/day Monitor edema Routine follow-up in 4 weeks Laboratory, Imaging, and Diagnostic Test Results - Date: 03/22/2025 - Hepatitis B: Negative - Hepatitis C: Negative - RPR: Non-reactive - Rubella: Immune - Blood group: B positive - Antibody screen: Negative - HIV: Negative - Gonorrhea-chlamydia: Negative - Hemoglobin: 13 g/dL - Drug screen: Negative - Ultrasound (date not specified): - heart rate: 158 bpm - Estimated gestational age: 9 weeks and 4 days heart tones: 158 bpm. 05/07/25 <del>?</del> 14w 2d 119.862 kg 128/78 at 14w2d. Hx 2 prior C/S, recent PE on hormonal contraceptives. Unilateral CRUZ x2 days. BMI 45. On Diclegis/Phenergan for nausea. MFM consult 05/02, US normal, male fetus. Coag studies normal except low antithrombin antigen. NIPT negative Lovenox SQ daily entire + 6w , dietitian consult for obesity, extra-strength Tylenol for CRUZ, avoid hormonal BC, FU 4w. 05/16/25 <del>?</del> 15w 4d 119.805 kg 123/78 absent 15w4d, on Lovenox for prior PE, c/o large painful bruise and bump at recent abdominal injection site with reported med leakage. Denies bruising elsewhere. PE: localized bruising with palpable bump. Plan: reviewed SC technique?partial needle insertion, slow inject, rotate sites, avoid vasculature, hold skin taut. May switch to thigh if needed. RTC 05/31; sooner if worsens. 06/18/25 <del>?</del> 20w 2d 88.961 kg 127/78 absent cephalic 31 145 active - Patient reports recent ER visit 2 days ago for remedios-umbilical abdominal pain - Workup was negative, including ultrasound within normal limits - Ongoing nausea, not improving - Denies cramping or spotting - Reports active movement - Small bruises at Lovenox injection sites, improved from previous visit - Notes sensitivity to certain foods during - Attributes recent stomach upset to dietary changes - Denies any other new symptoms or concerns - Follow up appointment at [facility] this month - Return for next visit in 4 weeks - Complete glucose tolerance test (fasting) 1-2 days before next appointment - Continue Lovenox injections as prescribed 07/24/25 <del>?</del> 25w 3d 121.336 kg 120/74 absent cephalic 26 149 active - Baby is active - No specific complaints or concerns mentioned - Recent healthcare interactions: - Attended a [facility] appointment in June (around the ) - Scheduled for another ultrasound on the due to inability to visualize baby's fingers in previous scan - Schedule 3-hour glucose tolerance test - Continue Lovenox as prescribed - Follow up in 2 weeks - Attend scheduled ultrasound appointment at [facility] on August 12 08/07/25 <del>?</del> 27w 3d 121.279 kg 127/85 absent cephalic 28 150 active No contractions, LOF, VB and reports good FM. Denies CRUZ, VC, and epigastric pain. - She had an abnormal one-hour glucose tolerance test but her subsequent 3-hour glucose tolerance test was normal. - She had questions about her due date and delivery timing related to her medical history. - Her MFM appointment was moved to August 20. - Return for follow-up visit in 2 weeks - MFM appointment rescheduled to August 20 - Potential delivery at 37 weeks due to lupus and other comorbidities 08/23/25 <del>?</del> 29w 5d 122.64 kg 122/80 absent cephalic 30 145 active - She has lupus anticoagulant syndrome (APS) and is currently on Lovenox 40 milligrams daily since August 19, 2025. - Patient is adherent to her anticoagulation therapy as prescribed. - She has a history of prior sections and is scheduled for repeat delivery at 37 weeks on October 17 at 12:30 pm. - Last [facility] consultation recommended 37-week delivery with heparin bridge per protocol. - Continue Lovenox 40 mg daily for lupus anticoagulant syndrome - Scheduled repeat section on October 17 at 12:30 pm at 37 weeks 2 days gestation - Heparin bridge per protocol as recommended by [facility] - Labs to be done today - Final ultrasound scheduled at [facility] on October 08 - Follow up in 2 weeks 09/09/25 <del>?</del> 32w 1d 123.547 kg 127/83 absent cephalic 32 152 active - She had an [facility] ultrasound on August 20, 2025 which showed the baby weighing 3 pounds 15 ounces at the 97th percentile. - Patient is currently on Lovenox injections with a planned transition to Heparin at 35 weeks gestation. - She reports feeling movements more on one side. - Patient appears to be adhering to her current Lovenox injection regimen. - Switch from Lovenox to heparin at 35 weeks gestation - Plan early section at 37 weeks gestation - Group B streptococcus culture at 36 weeks - Follow up in 2 weeks KAL Calculator Estimated Delivery Date Method Current WG Current Estimate 11/03/25 LMP (Certain) 34w 6d Other Estimates 11/10/25 Ultrasound #1 33w 6d Specific Issue/Plans Vital Signs - BMI: 45 kg/m? Laboratory, Imaging, and Diagnostic Test Results - Date: 04/10/2025 (reported on 04/22/2025) - Lupus panel: Within normal limits - Lupus anticoagulant: Not detected - Von Willebrand factor: Within normal limits - Factor 8: 131 - INR: 1.0 - Prothrombin time: 10.7 seconds - Antithrombin: 3.99 - Antithrombin antigen: Low - APTT: 29 (within normal limits) Notes Visit Date: 09/09/25 Last Updated by: Wilber Anderson MD - Date: 08/20/2025 - [facility] ultrasound: weight 3 pounds 15 ounces (97th percentile) Visit Date: 07/24/25 Last Updated by: Wilber Anderson MD - One-hour glucose tolerance test: 147 mg/dL (cutoff: 140 mg/dL) - Hemoglobin A1c: 5.8% Office Procedures OBC Clinic LOC & Office Proc's Nursing/Assessment Patient Status: Established Patient OB Clinic Nursing Assessment: Medication Reconciliation, Update PMH in EMR and Vital Signs OB Clinic Coordination of Care: Consent,records obtained, informed consent, Education Simp Pt/Fam, Lab and Imaging orders, Results/Orders obtained and Staff clarify orders Special Needs: Heart tones Established Patient Charge Established Patient Point Assignment: 110 Established Patient Point Charge: EP Level 3 (80-115) Assessment & Plan Diagnosis / Problem List (1) Supervision of high risk , unspecified, second trimester: Status: Acute (2) Pre-existing essential hypertension complicating , second trimester: Status: Acute (3) Pulmonary embolism: Status: Acute (4) Other specified counseling: Status: Acute Plan Problem List - , third trimester - Lupus anticoagulant syndrome - Antiphospholipid syndrome - History of section - Large for gestational age fetus Assessment 29-week 5-day intrauterine in a 25-year-old 3 para 2 with antiphospholipid syndrome on Lovenox 40 mg daily, with macrosomia (estimated weight 3 pounds 15 ounces at 97th percentile with estimated weight at 99th percentile on [facility] ultrasound from 08-20-2025). Patient has history of prior sections with planned repeat delivery scheduled at 37 weeks. Gestational diabetes screening shows one-hour glucose tolerance test of 147 mg/dL, however three-hour glucose tolerance test was normal with hemoglobin A1c of 5.8%. Current heart rate is 155 bpm, which is within normal limits. Plan - Continue Lovenox 40 mg daily for lupus anticoagulant syndrome - Scheduled repeat section on October 17 at 12:30 pm at 37 weeks 2 days gestation - Heparin bridge per protocol as recommended by [facility] - Labs to be done today - Final ultrasound scheduled at [facility] on October 08 - Follow up in 2 weeks 1. Progress Reviewed gestational age, growth, and heart rate. Planned frequent visits (every 2 weeks until 36 weeks, then weekly). 2. Instructed patient to monitor movements and report decreases immediately. 3. Testing Counseled on routine third-trimester labs per guidelines. Discussed potential need for ultrasound or monitoring based on risk factors. 4. Preeclampsia Precaution Educated on preeclampsia signs: severe headache, vision changes, right upper quadrant pain, sudden swelling. Advised urgent reporting of symptoms and discussed blood pressure monitoring if high risk. 5. Labor Precautions Reviewed labor signs: regular contractions, pelvic pressure, back pain, bleeding, or fluid leakage. Instructed to seek immediate care for these symptoms. 6. Lifestyle and Delivery Preparation Reinforced vitamins, nutrition, and safe activity. Discussed plan, pain management, and . Advised on labor preparation (e.g., hospital bag) and expectations. 7. Psychosocial Support Assessed emotional well-being and offered resources for mental health or parenting support.
[2025-08-23 10:50] VITALS: BP 122/80; PULSE 120; RESP 16; TEMP 36.2; O2SAT 98; BMI 46.1
== END 2025-08-23 11:06 | disposition home or self-care (01) ==
LOC: HODSOBC 10:20
PROVIDERS: Supervising Provider Obstetrics & Gynecology; Visit Provider Obstetrics & Gynecology
DX: O09.893 Supervision of other high risk pregnancies, third trimester (principal); O10.013 Pre-existing essential hypertension complicating pregnancy, third trimester; O09.293 Supervision of pregnancy with other poor reproductive or obstetric history, third trimester; O36.63X0 Maternal care for excessive fetal growth, third trimester, not applicable or unspecified; O34.219 Maternal care for unspecified type scar from previous cesarean delivery; O99.113 Other diseases of the blood and blood-forming organs and certain disorders involving the immune mechanism complicating pregnancy, third trimester; D68.61 Antiphospholipid syndrome; D68.62 Lupus anticoagulant syndrome; Z3A.29 29 weeks gestation of pregnancy; Z79.01 Long term (current) use of anticoagulants
CPT/HCPCS: 99213; G0463

== ENCOUNTER 2025-09-09 10:20 | Outpatient (AMB) | payer MEDICAID, SELFPAY ==
[2025-09-09 11:00] VITALS: BP 127/83; PULSE 81; RESP 18; TEMP 36.4; O2SAT 98; BMI 46.7
--- NOTE | 2025-09-09 11:00 | OBCLNT_ITS ---
Vital Signs 09/09/25 11:00 Height 1.63 m Height Method Stated Weight 123.547 kg Weight Measurement Method Standing Scale BMI 46.7 BP 127/83 Blood Pressure Source Automatic Cuff Blood Pressure Location Right Upper Arm Position Sitting Respiration 18 Pulse 81 Pulse Source Monitor Temp 97.5 F Temp Source Temporal Artery Scan Pulse Oximetry (%) 98 Oxygen Delivery Method Room Air Allergies/Home Meds Allergies & Medications Allergies No Known Allergies Allergy (Verified 09/09/25 11:02) Medication Reconciliation vitamins with calcium no.72-iron 27 mg-folic acid 1 mg tablet ( Vitamins Plus Low Iron) 1 tab PO QDAY 90 days #90 tabs 04/09/25 [Rx Confirmed 09/09/25] enoxaparin 40 mg/0.4 mL subcutaneous syringe (Lovenox) 40 mg (0.4 mL) subcut QDAY 30 days #12 mL 05/07/25 [Rx Confirmed 09/09/25] Intake Visit Data Collection New Patient or Established: Established Patient (seen at [facility] within 3 years) Reason for Visit:: OBC Seen by Clinical Staff ONLY (RN/MA): No Shank Rander Required: No Do You Feel Safe at Home: Yes Authorities Contacted: N/A PCP or OBGYN visit in last 3 months: Yes Date of Last PCP or OBGYN visit: 08/23/25 Hx Now: Yes Are you currently on any form of Control: No Pain Present Currently: Yes Pain Location: Abdomen Pain Scale Used: [place]/Numerical Pain scale:: 4 Smoking Status Smoking Status: Never smoker Immunizations Flu Vaccine in the Last 12 Months: No Flu Vaccine Exclusion Criteria: Already Received Questionnaires Covid-19 Vaccine Questionnaire Has patient been vacinated for Covid-19 Have you been vacinated for Covid-19: Yes PHQ-9 PHQ-2 Over the last 2 weeks, how often have you been bothered by any of the following problems? 1. Little interest or pleasure in doing things: not at all 2. Feeling down, depressed, or hopeless: not at all Total score: 0 PHQ-9 3. Trouble falling or staying asleep, or sleeping too much: Not at all 4. Feeling tired or having little energy: Not at all 5. Poor appetite or overeating: Not at all 6. Feeling bad about yourself - or that you are a failure or have let yourself or your family down: Not at all 7. Trouble concentrating on things, such as reading the newspaper or watching television: Not at all 8. Moving or speaking so slowly that other people could have noticed? - Or the opposite - being so fidgety or restless that you have been moving around a lot more than usual: not at all 9. Thoughts that you would be better off or of hurting yourself in some way: Not at all Total score: 0 If you checked off any problems, how difficult have these problems made it for you to do your work, take care of things at home, or get along with other people?: not difficult at all Source: Developed by Drs. Myke Danielson, Lianet Tobar, Shekhar Pitts and colleagues, with an educational yaquelin from [employer]. Depression screen completed yes Social History Living Situation History Marital Status: Single Lives With: Family Housing: House Tobacco History Smoking Status: Never smoker Second Hand Smoke Exposure: No Alcohol History Alcohol Intake: Never Domestic Abuse History Do You Feel Safe at Home: Yes [employer]: Past Medical History Past Medical History: No Hx Neurological Disorders, No Hx Breast Cancer, No Hx Cardiac Disorders, Yes Hx Hypertension, No Hx Cancer, No Hx Blood Disorders, No Hx Anemia, Yes Hx Gastrointestinal Disorders, No Hx Renal Disease, No Hx Diabetes Mellitus Type 1 and No Hx Diabetes Mellitus Type 2 Care OB Visit Log OB Flowsheet Initial Weight: Not Recorded Date -?-?-?-?-?-?-?-?-?-?-?-?- EGA Weight BP Alb Glu CTX Pres Fundal ht FHR Mov Dilation Station Effacement Hx Notes Visit Note 03/19/25 -?-?-?-?-?-?-?-?-?-?-?-?- 7w 2d 119.068 kg 128/84 absent 8 absent 24 yo prev c/s 2. for oBI. no complaints of SAB, c/o Nausea. history of blood clot in lungs, taking Eliquis. rx given for Dicligesis bid #60. start PNV daily, ob panel ordered, sono scheduled [facility] for viability and dates, sab precaution discussed, RTC 4 week with OB,ER precaution given 04/09/25 -?-?-?-?-?-?-?-?-?-?-?-?- 10w 2d 119.918 kg 130/86 at 10w2d gestation, presents for routine care. History notable for 2 prior C-sections, pulmonary embolism, rectal bleeding on anticoagulation, and pyelonephritis. Reports ongoing nausea (hyperemesis) but has not picked up Diclegis; previously prescribed Tigan. Stopped Eliquis upon confirmation of . Reports hand swelling; denies CTX/LOF/VB. FHT 158 bpm. LMP 01/27/25, KAL 11/03/25. Labs reviewed: negative infectious panel, Hgb 13. Plan: Schedule formal ultrasound to confirm ge stational age Genetic testing panel + kidney/liver fun ction labs Diclegis prescription sent; continue Tig an as needed vitamins sent to pharmacy Order coagulation profile Urgent MFM referral for anticoagulation planning Discuss Lovenox if indicated Encourage hydration and small, frequent meals Avoid ibuprofen; limit Tylenol to 1/day Monitor edema Routine follow-up in 4 weeks Laboratory, Imaging, and Diagnostic Test Results - Date: 03/22/2025 - Hepatitis B: Negative - Hepatitis C: Negative - RPR: Non-reactive - Rubella: Immune - Blood group: B positive - Antibody screen: Negative - HIV: Negative - Gonorrhea-chlamydia: Negative - Hemoglobin: 13 g/dL - Drug screen: Negative - Ultrasound (date not specified): - heart rate: 158 bpm - Estimated gestational age: 9 weeks a nd 4 days heart tones: 158 bpm. 05/07/25 -?-?-?-?-?-?-?-?-?-?-?-?- 14w 2d 119.862 kg 128/78 at 14w2d. Hx 2 prior C/S, recent PE on hormonal contraceptives. Unilateral CRUZ x2 days. BMI 45. On Diclegis/Phenergan for nausea. MFM consult 05/02, US normal, male fetus. Coag studies normal except low antithrombin antigen. NIPT negative Lovenox SQ daily entire + 6w , dietitian consult for obesity, extra-strength Tylenol for CRUZ, avoid hormonal BC, FU 4w. 05/16/25 -?-?-?-?-?-?-?-?-?-?-?-?- 15w 4d 119.805 kg 123/78 absent 15w4d, on Lovenox for prior PE, c/o large painful bruise and bump at recent abdominal injection site with reported med leakage. Denies bruising elsewhere. PE: localized bruising with palpable bump. Plan: reviewed S C technique?partial needle insertion, slow inject, rotate sites, avoid vasculature, hold skin taut. May switch to thigh if needed. RTC 05/31; sooner if worsens. 06/18/25 -?-?-?-?-?-?-?-?-?-?-?-?- 20w 2d 88.961 kg 127/78 absent cephalic 31 145 active - Patient reports recent ER visit 2 days ago for remedios-umbilical abdominal pain - Workup was negative, including ultrasound within normal limits - Ongoing nausea, not improving - Denies cramping or spotting - Reports active movement - Small bruises at Lovenox injection sit es, improved from previous visit - Notes sensitivity to certain foods dur ing - Attributes recent stomach upset to d ietary changes - Denies any other new symptoms or concerns - Follow up appointment at [facility] this month - Return for next visit in 4 we eks - Complete glucose tolerance test (fasti ng) 1-2 days before next appointment - Continue Lovenox injections as prescri bed 07/24/25 -?-?-?-?-?-?-?-?-?-?-?-?- 25w 3d 121.336 kg 120/74 absent cephalic 26 14 9 active - Baby is active - No specific complaints or concerns m entioned - Recent healthcare interactions: - Attended a [facility] appoint ment in June (around the ) - Scheduled for another ultrasound on the due to inability to visualize baby's fingers in previous scan - Schedule 3-hour glucose tolerance test - Continue Lovenox as prescribed - Follow up in 2 weeks - Attend scheduled ultrasound appointmen t at [facility] on August 12 08/07/25 -?-?-?-?-?-?-?-?-?-?-?-?- 27w 3d 121.279 kg 127/85 absent cephalic 28 15 0 active No contractions, LOF, VB and reports good FM. Denies CRUZ, VC, and epigastric pain. - She had an abnormal one-hour glucose t olerance test but her subsequent 3-hour glucose tolerance test was normal. - She had questions about her due date a nd delivery timing related to her medical history. - Her MFM appointment was moved to August 20. - Return for follow-up visit in 2 weeks - MFM appointment rescheduled to August 20 - Potential delivery at 37 weeks due to lupus and other comorbidities 09/09/25 -?-?-?-?-?-?-?-?-?-?-?-?- 32w 1d 123.547 kg 127/83 absent cephalic 32 15 2 active - She had an MFM ultrasound on August 20, 2025 which showed the baby weighing 3 pounds 15 ounces at the 97th percentile. - Patient is currently on Lovenox inject ions with a planned transition to Heparin at 35 weeks gestation. - She reports feeling movements mo re on one side. - Patient appears to be adhering to her current Lovenox injection r egimen. - Switch from Lovenox to heparin at 35 weeks gestation - Plan early section at 37 week s gestation - Group B streptococcus culture at 36 we eks - Follow up in 2 weeks KAL Calculator Estimated Delivery Date Method Current WG Current Estimate 11/03/25 LMP (Certain) 32w 1d Other Estimates 11/10/25 Ultrasound #1 31w 1d Specific Issue/Plans Vital Signs - BMI: 45 kg/m? Laboratory, Imaging, and Diagnostic Test Results - Date: 04/10/2025 (reported on 04/22/2025) - Lupus panel: Within normal limits - Lupus anticoagulant: Not detected - Von Willebrand factor: Within normal limits - Factor 8: 131 - INR: 1.0 - Prothrombin time: 10.7 seconds - Antithrombin: 3.99 - Antithrombin antigen: Low - APTT: 29 (within normal limits) Notes Visit Date: 09/09/25 Last Updated by: Wilber Anderson MD - Date: 08/20/2025 - [facility] ultrasound: weight 3 pounds 15 ounces (97th percentile) Visit Date: 07/24/25 Last Updated by: Wilber Anderson MD - One-hour glucose tolerance test: 147 mg/dL (cutoff: 140 mg/dL) - Hemoglobin A1c: 5.8% Office Procedures OBC Clinic LOC & Office Proc's Nursing/Assessment Patient Status: Established Patient OB Clinic Nursing Assessment: Medication Reconciliation, Update PMH in EMR and Vital Signs OB Clinic Coordination of Care: Complex Care and Chronic Disease 1-5, Education Complex Pt/Fam, Consent,records obtained, informed consent, Lab and Imaging orders and Staff clarify orders Special Needs: Heart tones Established Patient Charge Established Patient Point Assignment: 135 Established Patient Point Charge: EP Level 4 (120-155) Assessment & Plan Diagnosis / Problem List (1) Supervision of high risk , unspecified, second trimester: Status: Acute (2) Pre-existing essential hypertension complicating , second trimester: Status: Acute Plan Assessment 25-year-old at 32 weeks and 1 day gestation with macrosomia, as evidenced by recent MFM ultrasound on 08/20/2025 showing estimated weight of 3 pounds 15 ounces at 97th percentile. Patient is currently on Lovenox anticoagulation therapy with planned transition to heparin at 35 weeks gestation. heart rate is normal at 135-136 bpm with active movement noted predominantly on the right side. Recent blood work results are within normal limits. Patient has scheduled early section delivery at 37 weeks due to underlying medical conditions. Plan - Switch from Lovenox to heparin at 35 weeks gestation - Plan early section at 37 weeks gestation - Group B streptococcus culture at 36 weeks - Follow up in 2 weeks 1. Progress Reviewed gestational age (32 weeks 1 day), growth (3 pounds 15 ounces, 97th percentile), and heart rate (135-136 bpm, normal). Planned frequent visits (every 2 weeks until 36 weeks, then weekly). 2. Instructed patient to monitor movements and report decreases immediately. 3. Testing Counseled on routine third-trimester labs per guidelines (blood work completed and normal). Discussed potential need for ultrasound or monitoring based on risk factors (MFM ultrasound completed 08/20/25, Group B strep culture due at 36 weeks). 4. Preeclampsia Precaution Educated on preeclampsia signs: severe headache, vision changes, right upper quadrant pain, sudden swelling. Advised urgent reporting of symptoms and discussed blood pressure monitoring if high risk. 5. Labor Precautions Reviewed labor signs: regular contractions, pelvic pressure, back pain, bleeding, or fluid leakage. Instructed to seek immediate care for these symptoms. 6. Lifestyle and Delivery Preparation Reinforced vitamins, nutrition, and safe activity. Discussed plan (planned section at 37 weeks), pain management, and . Advised on labor preparation (e.g., hospital bag) and expectations. 7. Psychosocial Support Assessed emotional well-being and offered resources for mental health or parenting support.
== END 2025-09-09 11:27 | disposition home or self-care (01) ==
PROVIDERS: Supervising Provider Obstetrics & Gynecology; Visit Provider Obstetrics & Gynecology
DX: O09.893 Supervision of other high risk pregnancies, third trimester (principal); O10.013 Pre-existing essential hypertension complicating pregnancy, third trimester; Z3A.32 32 weeks gestation of pregnancy
CPT/HCPCS: 99214; G0463

== ENCOUNTER 2025-09-17 12:27 | Outpatient (CLI) | payer MEDICAID, SELFPAY ==
[2025-09-17] VITALS (13 sets, daily range): BP systolic 124–133; BP diastolic 68–80; PULSE 89–106; RESP 20–99; TEMP 36.7; O2SAT 97–99; BMI 47.2
[2025-09-17] MEDS: BETAMET ACET/BETAMET NA PH (Celestone) 6 MG/ML VIAL 12 MG IM (13:02)
== END 2025-09-17 13:30 | disposition home or self-care (01) ==
LOC: S4S1 12:28 → S4SX 12:29
PROVIDERS: Referring Provider Obstetrics & Gynecology; Visit Provider Obstetrics & Gynecology
DX: Z34.83 Encounter for supervision of other normal pregnancy, third trimester (principal); Z36.89 Encounter for other specified antenatal screening; Z3A.33 33 weeks gestation of pregnancy
CPT/HCPCS: 59025; 96372; J0702

== ENCOUNTER 2025-10-01 10:31 | Outpatient (AMB) | payer MEDICAID, SELFPAY ==
[2025-10-01 10:39] VITALS: BP 124/83; PULSE 96; RESP 18; TEMP 36.5; O2SAT 97; BMI 46.5
--- NOTE | 2025-10-01 10:39 | OBCLNT_ITS ---
Vital Signs 10/01/25 10:39 Height 1.63 m Height Method Stated Weight 123.491 kg Weight Measurement Method Standing Scale BMI 46.5 BP 124/83 Blood Pressure Source Automatic Cuff Blood Pressure Location Right Upper Arm Position Sitting Respiration 18 Pulse 96 Pulse Source Monitor Temp 97.7 F Temp Source Temporal Artery Scan Pulse Oximetry (%) 97 Oxygen Delivery Method Room Air Allergies/Home Meds Allergies & Medications Allergies No Known Allergies Allergy (Verified 10/01/25 10:40) Medication Reconciliation vitamins with calcium no.72-iron 27 mg-folic acid 1 mg tablet ( Vitamins Plus Low Iron) 1 tab PO QDAY 90 days #90 tabs 04/09/25 [Rx Confirmed 10/01/25] heparin (porcine) 5,000 unit/mL injection syringe 5,000 unit subcut Q12H 30 days #60 mL 10/01/25 [Rx] Immunizations Immunizations Flu Vaccine in the Last 12 Months: No Flu Vaccine Exclusion Criteria: No Exclusion Criteria Care OB Visit Log OB Flowsheet Initial Weight: Not Recorded Date -?-?-?-?-?-?-?-?-?-?-?-?- EGA Weight BP Alb Glu CTX Pres Fundal ht FHR Mov Dilation Station Effacement Hx Notes Visit Note 03/19/25 -?-?-?-?-?-?-?-?-?-?-?-?- 7w 2d 119.068 kg 128/84 absent 8 absent 24 yo prev c/s 2. for oBI. no complaints of SAB, c/o Nausea. history of blood clot in lungs, taking El iquis. rx given for Dicligesis bid #60. start PNV daily, ob panel ordered, sono scheduled [facility] for viability and dates, sab precaution discussed, RTC 4 week with OB,ER precaution given 04/09/25 -?-?-?-?-?-?-?-?-?-?-?-?- 10w 2d 119.918 kg 130/86 at 10w2d gestation, presents for routine care. History notable for 2 prior C-sections, pulmonary embolism, rectal bleeding on anticoagulation, and pyelonephritis. Reports ongoing nausea (hyperemesis) but has not picked up Diclegis; previously prescribed Tigan. St opped Eliquis upon confirmation of . Reports hand swelling; denies CTX/LOF/VB. FHT 158 bpm. LMP 01/27/25, KAL 11/03/25. Labs reviewed: negative infectious panel, Hgb 13. Plan: Schedule formal ultrasound to confirm ge stational age Genetic testing panel + kidney/liver fun ction labs Diclegis prescription sent; continue Tig an as needed vitamins sent to pharmacy Order coagulation profile Urgent MFM referral for anticoagulation planning Discuss Lovenox if indicated Encourage hydration and small, frequent meals Avoid ibuprofen; limit Tylenol to 1/day Monitor edema Routine follow-up in 4 weeks Laboratory, Imaging, and Diagnostic Test Results - Date: 03/22/2025 - Hepatitis B: Negative - Hepatitis C: Negative - RPR: Non-reactive - Rubella: Immune - Blood group: B positive - Antibody screen: Negative - HIV: Negative - Gonorrhea-chlamydia: Negative - Hemoglobin: 13 g/dL - Drug screen: Negative - Ultrasound (date not specified): - heart rate: 158 bpm - Estimated gestational age: 9 weeks a nd 4 days heart tones: 158 bpm. 05/07/25 -?-?-?-?-?-?-?-?-?-?-?-?- 14w 2d 119.862 kg 128/78 at 14w2d. Hx 2 prior C/S, recent PE on hormonal contraceptives. Unilateral CRUZ x2 days. BMI 45. On Diclegis/Phenergan for nausea. MFM consult 05/02, US normal, male fetus. Coag studies normal except low antithrombin antigen. NIPT negative Lovenox SQ daily entire + 6w , dietitian consult for obesity, extra-strength Tylenol for CRUZ, avoid hormonal BC, FU 4w. 05/16/25 -?-?-?-?-?-?-?-?-?-?-?-?- 15w 4d 119.805 kg 123/78 absent 15w4d, on Lovenox for prior PE, c/o l arge painful bruise and bump at recent abdominal injection site with reported med leakage. Denies bruising elsewhere. PE: localized bruising with palpable bump. Plan: reviewed S C technique?partial needle insertion, slow inject, rotate sites, avoid vasculature, hold skin taut. May switch to thigh if needed. RTC 05/31; sooner if worsens. 06/18/25 -?-?-?-?-?-?-?-?-?-?-?-?- 20w 2d 88.961 kg 127/78 absent cephalic 31 145 active - Patient reports recent ER visit 2 days ago for remedios-umbilical abdominal pain - Workup was negative, including ultrasound within normal limits - Ongoing nausea, not improving - Denies cramping or spotting - Reports active movement - Small bruises at Lovenox injection sit es, improved from previous visit - Notes sensitivity to certain foods dur ing - Attributes recent stomach upset to d ietary changes - Denies any other new symptoms or concerns - Follow up appointment at [facility] this month - Return for next visit in 4 we eks - Complete glucose tolerance test (fasti ng) 1-2 days before next appointment - Continue Lovenox injections as prescri bed 07/24/25 -?-?-?-?-?-?-?-?-?-?-?-?- 25w 3d 121.336 kg 120/74 absent cephalic 26 14 9 active - Baby is active - No specific complaints or concerns m entioned - Recent healthcare interactions: - Attended a [facility] appoint ment in June (around the ) - Scheduled for another ultrasound on the due to inability to visualize baby's fingers in previous scan - Schedule 3-hour glucose tolerance test - Continue Lovenox as prescribed - Follow up in 2 weeks - Attend scheduled ultrasound appointmen t at [facility] on August 12 08/07/25 -?-?-?-?-?-?-?-?-?-?-?-?- 27w 3d 121.279 kg 127/85 absent cephalic 28 15 0 active No contractions, LOF, VB and reports good FM. Denies CRUZ, VC, and epigastric pain. - She had an abnormal one-hour glucose t olerance test but her subsequent 3-hour glucose tolerance test was normal. - She had questions about her due date a nd delivery timing related to her medical history. - Her MFM appointment was moved to August 20. - Return for follow-up visit in 2 weeks - MFM appointment rescheduled to August 20 - Potential delivery at 37 weeks due to lupus and other comorbidities 10/10/25 -?-?-?-?-?-?-?-?-?-?-?-?- 29w 5d 122.64 kg 122/80 absent cephalic 30 145 active - She has lupus anticoagulant syndrome (APS) and is currently on Lovenox 40 milligrams daily since August 19, 2025. - Patient is adherent to her anticoagula tion therapy as prescribed. - She has a history of prior se ctions and is scheduled for repeat delivery at 37 weeks on October 17 at 12:30 pm. - Last [facility] consultation recommended 37-w [place] delivery with heparin bridge per protocol. - Continue Loven ox 40 mg daily for lupus anticoagulant syndrome - Scheduled repeat section on at 12:30 pm at 37 weeks 2 days gestation - Heparin bridge per protocol as recomme nded by MFM - Labs to be done today - Final ultrasound scheduled at [facility] on October 08 - Follow up in 2 weeks 09/09/25 -?-?-?-?-?-?-?-?-?-?-?-?- 32w 1d 123.547 kg 127/83 absent cephalic 32 15 2 active - She had an [facility] ultrasound on August 20, 2025 which showed the baby weighing 3 pounds 15 ounces at the 97th percentile. - Patient is currently on Lovenox inject ions with a planned transition to Heparin at 35 weeks gestation. - She reports feeling movements mo re on one side. - Patient appears to be adhering to her current Lovenox injection r stephanie. - Switch from Lovenox to heparin at 35 weeks gestation - Plan early section at 37 week s gestation - Group B streptococcus culture at 36 we eks - Follow up in 2 weeks 10/01/25 -?-?-?-?-?-?-?-?-?-?-?-?- 35w 2d 123.491 kg 124/83 absent cephalic 35 14 5 active - Patient is currently on Lovenox anticoagulation therapy. - No specific complaints or symptoms rep orted during this visit. - Patient appears to be adhering to current medication regimen with Lovenox. - Discontinue Lovenox and switch to heparin injection due to proximity to delivery (35 weeks gestation) to reduce hemorrhaging risk during delivery - Patient to potato picker heparin prescriptio n from pharmacy; continue Lovenox until new medication is obtained - Start heparin the morning after obtain ing prescription - administer twice daily (12-hour duration of action) - Continue heparin until delivery - Resume Lovenox for 6 weeks - Schedule follow-up appointment in one week at 36 weeks gestation - Obtain Group B Streptococcus culture a t next visit (routine screening at 36 weeks) - Weekly appointments from this point jose angel sullivan - Contact office if insurance issues sherice se with heparin prescription KAL Calculator Estimated Delivery Date Method Current WG Current Estimate 11/03/25 LMP (Certain) 35w 2d Other Estimates 11/10/25 Ultrasound #1 34w 2d Specific Issue/Plans Vital Signs - BMI: 45 kg/m? Laboratory, Imaging, and Diagnostic Test Results - Date: 04/10/2025 (reported on 04/22/2025) - Lupus panel: Within normal limits - Lupus anticoagulant: Not detected - Von Willebrand factor: Within normal limits - Factor 8: 131 - INR: 1.0 - Prothrombin time: 10.7 seconds - Antithrombin: 3.99 - Antithrombin antigen: Low - APTT: 29 (within normal limits) Notes Visit Date: 09/09/25 Last Updated by: Wilber Anderson MD - Date: 08/20/2025 - [facility] ultrasound: weight 3 pounds 15 ounces (97th percentile) Visit Date: 07/24/25 Last Updated by: Wilber Anderson MD - One-hour glucose tolerance test: 147 mg/dL (cutoff: 140 mg/dL) - Hemoglobin A1c: 5.8% Office Procedures [facility] Clinic LOC & Office Proc's Nursing/Assessment Patient Status: Established Patient OB Clinic Nursing Assessment: Medication Reconciliation, Update PMH in EMR and Vital Signs OB Clinic Coordination of Care: Complex Care and Chronic Disease 1-5, Education Complex Pt/Fam, Consent,records obtained, informed consent and Staff clarify orders Special Needs: Heart tones Established Patient Charge Established Patient Point Assignment: 120 Established Patient Point Charge: EP Level 4 (120-155) Assessment & Plan Diagnosis / Problem List (1) Pulmonary embolism: Status: Acute (2) Pre-existing essential hypertension complicating , third trimester: Status: Acute Plan Assessment Patient is at 35 weeks gestation with normal heart rate of 147 bpm. Currently on Lovenox anticoagulation therapy which requires transition to heparin due to proximity to delivery to reduce hemorrhaging risk during delivery while maintaining anticoagulation benefits. Plan - Discontinue Lovenox and switch to heparin injection due to proximity to delivery (35 weeks gestation) to reduce hemorrhaging risk during delivery - Patient to potato picker heparin prescription from pharmacy; continue Lovenox until new medication is obtained - Start heparin the morning after obtaining prescription - administer twice daily (12-hour duration of action) - Continue heparin until delivery - Resume Lovenox for 6 weeks - Schedule follow-up appointment in one week at 36 weeks gestation - Obtain Group B Streptococcus culture at next visit (routine screening at 36 weeks) - Weekly appointments from this point forward - Contact office if insurance issues arise with heparin prescription 1. Progress Reviewed gestational age at 35 weeks, heart rate of 147 (normal). Planned weekly visits from now on. 2. Instructed patient to monitor movements and report decreases immediately. 3. Testing Counseled on routine Group B Streptococcus culture at 36 weeks (next appointment). Discussed potential need for ultrasound or monitoring based on risk factors. 4. Preeclampsia Precaution Educated on preeclampsia signs: severe headache, vision changes, right upper quadrant pain, sudden swelling. Advised urgent reporting of symptoms and discussed blood pressure monitoring if high risk. 5. Labor Precautions Reviewed labor signs: regular contractions, pelvic pressure, back pain, bleeding, or fluid leakage. Instructed to seek immediate care for these symptoms. 6. Lifestyle and Delivery Preparation Reinforced vitamins, nutrition, and safe activity. Discussed plan, pain management, and . Advised on labor preparation (e.g., hospital bag) and expectations. 7. Psychosocial Support Assessed her emotional well-being and offered resources for mental health or parenting support.
== END 2025-10-01 11:01 | disposition home or self-care (01) ==
LOC: HODSOBC 10:31
PROVIDERS: Supervising Provider Obstetrics & Gynecology; Visit Provider Obstetrics & Gynecology
DX: O09.893 Supervision of other high risk pregnancies, third trimester (principal); O10.013 Pre-existing essential hypertension complicating pregnancy, third trimester; Z3A.35 35 weeks gestation of pregnancy; Z86.711 Personal history of pulmonary embolism; Z79.01 Long term (current) use of anticoagulants
CPT/HCPCS: 99214; G0463

== ENCOUNTER 2025-10-15 09:56 | Outpatient (AMB) | payer MEDICAID, SELFPAY ==
[2025-10-15 10:38] VITALS: BP 125/85; PULSE 85; RESP 16; TEMP 36.5; O2SAT 98; BMI 47.0
--- NOTE | 2025-10-15 10:38 | OBCLNT_ITS ---
Vital Signs 10/15/25 10:38 Height 1.63 m Height Method Stated Weight 124.908 kg Weight Measurement Method Standing Scale BMI 47.0 BP 125/85 H Blood Pressure Source Automatic Cuff Blood Pressure Location Left Upper Arm Position Sitting Respiration 16 Pulse 85 Pulse Source Monitor Temp 97.7 F Temp Source Oral Pulse Oximetry (%) 98 Oxygen Delivery Method Room Air Allergies/Home Meds Allergies & Medications Allergies No Known Allergies Allergy (Verified 10/30/25 09:43) Medication Reconciliation vitamins with calcium no.72-iron 27 mg-folic acid 1 mg tablet ( Vitamins Plus Low Iron) 1 tab PO QDAY 90 days #90 tabs 04/09/25 [Rx Confirmed 10/30/25] docusate sodium 100 mg capsule (Stool Softener) 100 mg PO QDAY 30 days #30 caps 10/18/25 [Rx Confirmed 10/30/25] enoxaparin 40 mg/0.4 mL subcutaneous syringe (Lovenox) 40 mg (0.4 mL) subcut QDAY 60 days #24 mL 10/18/25 [Rx Confirmed 10/30/25] Immunizations Immunizations Flu Vaccine in the Last 12 Months: Yes Flu Vaccine Exclusion Criteria: Already Received Care OB Visit Log OB Flowsheet Initial Weight: Not Recorded Date -?-?-?-?-?-?-?-?-?-?-?-?- EGA Weight BP Alb Glu CTX Pres Fundal ht FHR Mov Dilation Station Effacement Hx Notes Visit Note 03/19/25 -?-?-?-?-?-?-?-?-?-?-?-?- 7w 2d 119.068 kg 128/84 absent 8 absent 24 yo prev c/s 2. for oBI. no complaints of SAB, c/o Nausea. history of blood clot in lungs, taking Eliquis. rx given for Dicligesis bid #60. start PNV daily, ob panel ordered, son o scheduled at [facility] for viability and dates, sab precaution discussed, RTC 4 week with OB,ER precaution given 04/09/25 -?-?-?-?-?-?-?-?-?-?-?-?- 10w 2d 119.918 kg 130/86 at 10w2d gestation, presents for routine care. History notable for 2 prior C-sections, pulmonary embolism, rectal bleeding on anticoagulation, and pyelonephritis. Reports ongoing nausea (hyperemesis) but has not picked up Diclegis; previously prescribed Tigan. Stopped Eliquis upon confirmation of . Reports hand swelling; denies CT X/LOF/VB. FHT 158 bpm. LMP 01/27/25, KAL 11/03/25. Labs reviewed: negative infectious panel, Hgb 13. Plan: Schedule formal ultrasound to confirm ge stational age Genetic testing panel + kidney/liver fun ction labs Diclegis prescription sent; continue Tig an as needed vitamins sent to pharmacy Order coagulation profile Urgent MFM referral for anticoagulation planning Discuss Lovenox if indicated Encourage hydration and small, frequent meals Avoid ibuprofen; limit Tylenol to 1/day Monitor edema Routine follow-up in 4 weeks Laboratory, Imaging, and Diagnostic Test Results - Date: 03/22/2025 - Hepatitis B: Negative - Hepatitis C: Negative - RPR: Non-reactive - Rubella: Immune - Blood group: B positive - Antibody screen: Negative - HIV: Negative - Gonorrhea-chlamydia: Negative - Hemoglobin: 13 g/dL - Drug screen: Negative - Ultrasound (date not specified): - heart rate: 158 bpm - Estimated gestational age: 9 weeks a nd 4 days heart tones: 158 bpm. 05/07/25 -?-?-?-?-?-?-?-?-?-?-?-?- 14w 2d 119.862 kg 128/78 at 14w2d. Hx 2 prior C/S, recent PE on hormonal contraceptives. Unilateral CRUZ x2 days. BMI 45. On Diclegis/Phenergan for nausea. MFM consult 05/02, US normal, male fetus. Coag studies normal except low antithrombin antigen. NIPT negative Lovenox SQ daily entire + 6w , dietitian consult for obesity, extra-strength Tylenol for CRUZ, avoid hormonal BC, FU 4w. 05/16/25 -?-?-?-?-?-?-?-?-?-?-?-?- 15w 4d 119.805 kg 123/78 absent 15w4d, on Lovenox for prior PE, c/o large painful bruise and bump at recent abdominal injection site with reported med leakage. Denies bruising elsewhere. PE: localized bruising with palpable bump. Plan: reviewed S C technique?partial needle insertion, slow inject, rotate sites, avoid vasculature, hold skin taut. May switch to thigh if needed. RTC 05/31; sooner if worsens. 06/18/25 -?-?-?-?-?-?-?-?-?-?-?-?- 20w 2d 88.961 kg 127/78 absent cephalic 31 145 active - Patient reports recent ER visit 2 days ago for remedios-umbilical abdominal pain - Workup was negative, including ultrasound within normal limits - Ongoing nausea, not improving - Denies cramping or spotting - Reports active movement - Small bruises at Lovenox injection sit es, improved from previous visit - Notes sensitivity to certain foods dur ing - Attributes recent stomach upset to d ietary changes - Denies any other new symptoms or concerns - Follow up appointment at [facility] this month - Return for next visit in 4 we eks - Complete glucose tolerance test (fasti ng) 1-2 days before next appointment - Continue Lovenox injections as prescri bed 07/24/25 -?-?-?-?-?-?-?-?-?-?-?-?- 25w 3d 121.336 kg 120/74 absent cephalic 26 14 9 active - Baby is active - No specific complaints or concerns m entioned - Recent healthcare interactions: - Attended a [facility] appoint ment in June (around the ) - Scheduled for another ultrasound on the due to inability to visualize baby's fingers in previous scan - Schedule 3-hour glucose tolerance test - Continue Lovenox as prescribed - Follow up in 2 weeks - Attend scheduled ultrasound appointmen t at [facility] on August 12 08/07/25 -?-?-?-?-?-?-?-?-?-?-?-?- 27w 3d 121.279 kg 127/85 absent cephalic 28 15 0 active No contractions, LOF, VB and reports good FM. Denies CRUZ, VC, and epigastric pain. - She had an abnormal one-hour glucose t olerance test but her subsequent 3-hour glucose tolerance test was normal. - She had questions about her due date a nd delivery timing related to her medical history. - Her MFM appointment was moved to August 20. - Return for follow-up visit in 2 weeks - MFM appointment rescheduled to August 20 - Potential delivery at 37 weeks due to lupus and other comorbidities 08/23/25 -?-?-?-?-?-?-?-?-?-?-?-?- 29w 5d 122.64 kg 122/80 absent cephalic 30 145 active - She has lupus anticoagulant syndrome (APS) and is currently on Lovenox 40 milligrams daily since August 19, 2025. - Patient is adherent to her anticoagula tion therapy as prescribed. - She has a history of prior se ctions and is scheduled for repeat delivery at 37 weeks on October 17 at 12:30 pm. - Last MF consultation recommended 37-w [place] delivery with heparin bridge per protocol. - Continue Loven ox 40 mg daily for lupus anticoagulant syndrome - Scheduled repeat section on at 12:30 pm at 37 weeks 2 days gestation - Heparin bridge per protocol as recomme nded by MFM - Labs to be done today - Final ultrasound scheduled at [facility] on October 08 - Follow up in 2 weeks 09/09/25 -?-?-?-?-?-?-?-?-?-?-?-?- 32w 1d 123.547 kg 127/83 absent cephalic 32 15 2 active - She had an MFM ultrasound on August 20, 2025 which showed the baby weighing 3 pounds 15 ounces at the 97th percentile. - Patient is currently on Lovenox inject ions with a planned transition to Heparin at 35 weeks gestation. - She reports feeling movements mo re on one side. - Patient appears to be adhering to her current Lovenox injection r egimen. - Swi tch from Lovenox to heparin at 35 weeks gestation - Plan early section at 37 week s gestation - Group B streptococcus culture at 36 we eks - Follow up in 2 weeks 10/01/25 -?-?--?-?-?-?-?-?-?-?-?-?- 35w 2d 123.491 kg 124/83 absent cephalic 35 14 5 active - Patient is currently on Lovenox anticoagulation therapy. - No specific complaints or symptoms rep orted during this visit. - Patient appears to be adhering to current medication regimen with Lovenox. - Discontinue Lovenox and switch to heparin injection due to proximity to delivery (35 weeks gestation) to reduce hemorrhaging risk during delivery - Patient to picking tech heparin prescriptio n from pharmacy; continue Lovenox until new medication is obtained - Start heparin the morning after obtain ing prescription - administer twice daily (12-hour duration of action) - Continue heparin until delivery - Resume Lovenox for 6 weeks - Schedule follow-up appointment in one week at 36 weeks gestation - Obtain Group B Streptococcus culture a t next visit (routine screening at 36 weeks) - Weekly appointments from this point jose angel sullivan - Contact office if insurance issues sherice se with heparin prescription 10/15/25 -?-?-?-?-?-?-?-?-?-?-?-?- 37w 2d 124.908 kg 125/85 absent cephalic 38 15 6 active - She reports the baby is active with no contractions or other issues. - She denies bad headaches, bad stomach pain, or decreased movement. - She has been taking Lovenox as prescri bed but will discontinue it today per instructions. - She had a recent hospital visit yester day where labs were performed and results were reportedly fine. - She reports having plenty of Lovenox medication available. - section scheduled for at 12:30 PM, check-in at 10:00 AM - Discontinue Lovenox today and tomorrow , resume on Tuesday post-delivery - NPO after 2:00 AM on day of surgery (8 -hour fasting requirement) - Continue Lovenox for 6 weeks post-deli very then discontinue - Refill Lovenox prescription to same armacy - Return to hospital immediately if chiquita re headache, severe abdominal pain, or decreased movement occurs - Group B Strep vaginal culture obtained KAL Calculator Estimated Delivery Date Method Current WG Current Estimate 11/03/25 LMP (Certain) 41w 1d Other Estimates 11/10/25 Ultrasound #1 40w 1d Specific Issue/Plans Vital Signs - BMI: 45 kg/m? Laboratory, Imaging, and Diagnostic Test Results - Date: 04/10/2025 (reported on 04/22/2025) - Lupus panel: Within normal limits - Lupus anticoagulant: Not detected - Von Willebrand factor: Within normal limits - Factor 8: 131 - INR: 1.0 - Prothrombin time: 10.7 seconds - Antithrombin: 3.99 - Antithrombin antigen: Low - APTT: 29 (within normal limits) Notes Visit Date: 09/09/25 Last Updated by: Wilber Anderson MD - Date: 08/20/2025 - [facility] ultrasound: weight 3 pounds 15 ounces (97th percentile) Visit Date: 07/24/25 Last Updated by: Wilber Anderson MD - One-hour glucose tolerance test: 147 mg/dL (cutoff: 140 mg/dL) - Hemoglobin A1c: 5.8% Office Procedures OBC Clinic LOC & Office Proc's Nursing/Assessment Patient Status: Established Patient OB Clinic Nursing Assessment: Medication Reconciliation, Update PMH in EMR and Vital Signs OB Clinic Coordination of Care: Complex Care and Chronic Disease 1-5, Consent,records obtained, informed consent, Education Simp Pt/Fam, 1 Ins Authorization, Lab and Imaging orders, Results/Orders obtained and Staff clarify orders Special Needs: Heart tones Miscellaneous Interventions: Culture Specimen Collection Established Patient Charge Established Patient Point Assignment: 165 Established Patient Point Charge: EP Level 5 (160-above) Assessment & Plan Diagnosis / Problem List (1) Pre-existing essential hypertension complicating , third trimester: Status: Acute Plan Assessment Patient is at term with scheduled section in two days. heart rate is 156 bpm, which is normal. Baby is active with no reported contractions or other maternal concerns. Recent laboratory results obtained by Dr. Nevarez were within normal limits. Group B Streptococcus screening culture was performed. Patient is currently on Lovenox anticoagulation therapy, which has been discontinued temporarily for the surgical procedure, with plans to resume postoperatively. Plan - section scheduled for at 12:30 PM, check-in at 10:00 AM - Discontinue Lovenox today and tomorrow, resume on Tuesday post-delivery - NPO after 2:00 AM on day of surgery (8-hour fasting requirement) - Continue Lovenox for 6 weeks post-delivery then discontinue - Refill Lovenox prescription to same pharmacy - Return to hospital immediately if severe headache, severe abdominal pain, or decreased movement occurs - Group B Strep vaginal culture obtained 1. Progress Reviewed gestational age, growth, and heart rate (156 bpm, normal). Patient scheduled for section on at 12:30 PM. 2. Instructed patient to monitor movements and report decreases immediately, along with severe headache or stomach pain. 3. Testing Group B Strep vaginal culture performed during visit. Recent labs reviewed by Dr. Nevarez were normal. 4. Preeclampsia Precaution Educated on preeclampsia signs: severe headache, vision changes, right upper quadrant pain, sudden swelling. Advised urgent reporting of symptoms including severe headache, bad stomach pain, or decreased movement. 5. Labor Precautions Patient reports no contractions currently. Instructed to seek immediate care for concerning symptoms given proximity to scheduled delivery. 6. Lifestyle and Delivery Preparation Pre-operative instructions provided: NPO after 2:00 AM on day of surgery, check- in at 10:00 AM for 12:30 PM section. Lovenox anticoagulation management discussed - discontinue until after delivery, then resume for 6 weeks . 7. Psychosocial Support Patient appears comfortable with delivery plan. Medication refill arranged for anticoagulation needs.
== END 2025-10-15 10:55 | disposition home or self-care (01) ==
LOC: HODSOBC 09:56
PROVIDERS: Supervising Provider Obstetrics & Gynecology; Visit Provider Obstetrics & Gynecology
DX: O09.893 Supervision of other high risk pregnancies, third trimester (principal); O10.013 Pre-existing essential hypertension complicating pregnancy, third trimester; Z3A.37 37 weeks gestation of pregnancy; Z36.85 Encounter for antenatal screening for Streptococcus B
CPT/HCPCS: 99215; G0463

== ENCOUNTER 2025-10-17 10:01 | Inpatient (IN) | payer MEDICAID, SELFPAY ==
[2025-10-17] VITALS (14 sets, daily range): BP systolic 120–158; BP diastolic 51–94; PULSE 74–98; RESP 14–22; TEMP 36.4–36.9; O2SAT 95–100; BMI 47.1
--- NOTE | 2025-10-17 09:20 | PD.LDHP ---
Documentation for date of: 10/17/25 OB Labor/Induct. HPI History of Present Illness Chief complaint: Schedule repeat : 3 Para: 2 Term pregnancies: 2 pregnancies: 0 Living children: 2 History of Abortions: Spontaneous and Elective: 0 History of sections: No History of : No KAL: 11/03/25 Gestational Age (weeks): 37 Gestational Age (days): 4 History of present illness: 25-year-old 3 para 2 at 37 weeks and 4 days with chronic hypertension and history of pulmonary embolism on Lovenox during presents for scheduled repeat low-transverse section. On presentation patient reports moderate contractions, denies any leakage of fluid or vaginal bleeding. Patient received care at [facility] and she was comanaged with maternal- medicine. She was prescribed heparin at 35 weeks but was not covered by her insurance and we were unable to get a prior authorization and spite of all efforts. Patient continued to take her Lovenox which she discontinued 48 hours ago. She has a history of 2 prior C-sections in 2019 and then in 2020. All her records were reviewed as scanned in. Past Medical History Surgical History SURGICAL: Negative Section Meds Home Medications and Allergies Allergies Allergy/AdvReac Type Severity Reaction Status Date / Time No Known Allergies Allergy Verified 10/15/25 10:39 OB Exam Constitutional Constitutional: no acute distress Routine HEENT Exam Head: Present normocephalic and atraumatic Eye: Present EOMI and PERRL ENT: Present mucous membranes moist Routine Neck Exam Neck: Present supple and trachea midline Routine Cardiovascular Exam Cardiovascular: Present RRR Routine Abdominal Exam Abdominal: Present soft and normoactive bowel sounds Detailed Labor and Delivery Exam Dilation (cm): 0 Baseline heart rate: 140 monitor accelerations: 15x15 monitor decelerations: None Routine Extremities Exam Extremities: Present full ROM Routine Skin Exam Skin: Present intact, dry and warm Routine Neurological Exam Neurological: Present alert, oriented X3 and CN II-XII intact Routine Psychiatric Exam Psychiatric: Present normal affect and normal thought process OB Assessment & Plan Assessment and Plan (1) Pre-existing essential hypertension complicating , third trimester: Status: Acute Assessment and plan: Admit to inpatient status for repeat low transverse IV access, CBC, type and screen, LR at 125, RPR, COVID-19 test GBS negative Ancef 2 g prior to surgery start King catheter to drainage SCDs for DVT prophylaxis Anesthesia to preop for spinal anesthesia Scheduled for surgery. Will resume Lovenox tomorrow morning and plan to continue for 12 weeks postdelivery (2) Previous section: Status: Acute (3) Pulmonary embolism: Status: Acute
[2025-10-17] MEDS: RINGERS LACTATED 1000 ML 1,000 ML 100 ML IV ×2 (10:38→12:06)
[2025-10-17 11:51] LABS: Basophils # (Auto) 0.0 Thou/mm3 (0.0-0.2); Basophils % (Auto) 1 % (0-2.5); Eosinophils # (Auto) 0.1 Thou/mm3 (0.0-0.5); Eosinophils % (Auto) 1 % (0-10); Hematocrit 40.4 % (36.0-46.0); Hemoglobin 13.0 g/dL (12.0-16.0); Immature Granulocytes Auto 0.03 Thou/mm3 (0.00-0.00); Lymphocytes # (Auto) 2.0 Thou/mm3 (1.0-4.8); Lymphocytes % (Auto) 25 % (10-50); Mean Corpuscular HGB Conc 32.2 g/dl (31.0-37.0); Mean Corpuscular Hemoglobin 27.4 pg (25.0-35.0); Mean Corpuscular Volume 85 fL (80-100); Monocytes # (Auto) 0.6 Thou/mm3 (0.0-0.8); Monocytes % (Auto) 7 % (0-12); Neutrophils # (Auto) 5.2 Thou/mm3 (1.8-7.7); Neutrophils % (Auto) 66 % (37-80); Nucleated Red Blood Cell # 0.00 Thou/mm3 (0.00-0.00); Nucleated Red Blood Cell % 0 /100 WBC (0); Platelet Count 264 Thou/mm3 (140-440); RDW Standard Deviation 44.4 fL (36.4-46.3); Red Blood Count 4.75 Miln/mm3 (4.00-5.20); White Blood Count 7.9 Thou/mm3 (3.6-11.0)
[2025-10-17 12:24] LABS: Syphilis Nonreactive (Nonreactive)
[2025-10-17] MEDS: METOCLOPRAMIDE INJ 5 MG/ML VIAL 2 ML 10 MG IVP (13:31)
[2025-10-17] MEDS: ceFAZolin/D5W 2 GM IV 2 GM/100 ML BAG IV (13:31)
[2025-10-17] MEDS: FAMOTIDINE INJ 10 MG/ML VIAL 2 ML 20 MG IV (13:31)
[2025-10-17 13:49] LABS: INR 1.0 (0.9-1.3); Partial Thromboplastin Time 30.5 Seconds (22.0-36.0); Prothrombin Time 10.5 Seconds (9.0-12.2)
[2025-10-17 13:52] LABS: Fibrinogen 679 mg/dL (175-375)
--- NOTE | 2025-10-17 15:08 | PD.GYNPROC ---
Operative Note - AS400 ADMINISTRATOR Procedure Date of procedure: 10/17/25 Procedure Performed: Repeat low-transverse section and bilateral salpingectomy Indication: 25-year-old 3 para 2 at 37 weeks and 2 days with previous x 2 History of pulmonary embolism on Lovenox during Chronic hypertension not on meds Anesthesia type: Spinal Procedure description: Informed consent was obtained and the patient was taken to the operating room. Identity was confirmed by double identifiers and she was placed on the operating table. Spinal anesthesia was administered and she was positioned in the supine position. The abdomen and perineum were prepped in the usual sterile fashion and a King catheter was placed to continuous drainage. Sterile drapes were applied. The incision site was tested for adequacy of anesthesia. A Pfannenstiel skin incision was made with a scalpel and carried to the subcutaneous fat up to the rectus fascia. The rectus fascia was incised on either side of the midline and the incisions were extended bilaterally. The fascia was gently dissected off the ventral surface of the rectus muscle both superiorly and inferiorly. The rectus bellies were gently in the midline and the peritoneum was identified and entered bluntly using the surgeon's finger. The peritoneal opening was now stretched to create an adequate opening for access to the uterus. Arnold O-ring retractor was placed for adequate visualization. The anterior surface of the uterus was palpated. The bladder reflection was identified and a Teddy Barrera low transverse uterine incision was made in the lower uterine segment taking care to avoid the bladder. Uterine entry was accomplished bluntly and the opening was stretched to create adequate room. The amniotic membranes were now ruptured and clear amniotic fluid was released. The fetus was noted to be in the vertex position. The head was gently elevated out of the maternal pelvis, delivery was accomplished using a vacuum and single loop of nuchal cord was found around the neck. The cord was released and the rest of the shoulders and body were delivered by gentle fundal pressure. Umbilical cord was doubly clamped, divided and the was handed over to the waiting team. Cord gas samples were obtained. The placenta was delivered by gentle traction on the umbilical cord. The interior of the uterus was now thoroughly cleaned of all blood and debris and membranes. The hysterotomy angles were grasped by a pair of Allis clamps and the hysterotomy was closed using 1 Monocryl suture in 2 layers. The first layer was used to approximate the muscle in a running locked fashion, the second layer was used to approximate the thickness of the myometrium and uterine serosa in an imbricated manner. There were multiple bleeding points along the length of the hysterotomy and several figure of 8 sutures were placed to achieve hemostasis. Once the repair was completed the hysterotomy was inspected and noted to be adequately hemostatic. Attention was now turned to the right fallopian tube. The fimbriated end was grasped using a Mcallister and placed under traction. Salpingectomy was performed using the Enseal device, starting the dissection from the fimbriated end and carrying it through the mesosalpinx up to the cornual junction. Similarly on the left side the left fimbriated end was grasped using a Austin and was dissected along the mesosalpinx. A band of adhesion was noted between the fallopian tube and the ovary and this was also lysed using the Enseal. Salpingectomy was completed up to the cornual angle. Both fallopian tubes were sent over for pathology. The hysterotomy was once again inspected and hemostasis was noted to be satisfactory. The Arnold retractor was now removed. The peritoneal edges were re approximated. The rectus muscles were re approximated. The rectus fascia was now repaired using 1 strata fix PDS in a running fashion. The subcutaneous layer was now copiously irrigated using warm normal saline. All bleeding points were cauterized using the Bovie. The subcutaneous fat was closed using 2 0 STRATAFIX Monocryl the skin was closed using INSORB suze in a subcuticular fashion. The skin was cleaned and a sterile dressing was applied. The patient was now undraped, the abdomen and back were thoroughly cleaned and she was transferred to the recovery room in a stable and awake condition. The patient tolerated the entire procedure well. No complications were encountered. All instrument, sponge and lap counts were correct x2. Estimated blood loss (ml): 800 Complications: none Surgical staff Operation Date: 10/17/25 14:15 <No data on this case meets the specified criteria> Diagnosis Discharge Diagnosis (1) Pre-existing essential hypertension complicating , third trimester: Status: Acute (2) Previous section: Status: Acute (3) Pulmonary embolism: Status: Acute Problem List Completed Was Problem List Reviewed/Reconciled?: Yes
--- NOTE | 2025-10-17 15:13 | PD.LDDELS ---
Data ([place]) Data Hx Section: Yes : 3 Term: 2 : 0 Livin Abortions: Spontaneous & Theraputic: 0 Delivery Data ([place]) Labor Data ROM date: 10/17/25 ROM time: 14:31 Amniotic membrane rupture type: Artificial Delivery Data [place] delivery date: 10/17/25 delivery time: 14:32 Placenta delivery date: 10/17/25 Placenta delivery time: 14:33 Delivered by: Wilber Anderson Delivery nurse: Luis Miguel Bowers RN [place] nurse: Tan NORWOOD RN Support person(s) at delivery: mother of pt Delivery Method Delivery method: Low Transverse Presentation: Vertex Anesthesia Type Anesthesia Type: None Anesthesia type: Spinal Placenta Placenta delivery description: Manual Removal Cord blood sent to lab: Yes cord blood collection: Cord Blood Type Episiotomy Episiotomy description: None Umbilical Cord cord description: 3 Vessels Data ([facility]) [place] Data order: 1 [place]'s gender: Male weight (gms): 3550 g Weight (pounds): 7 lbs and 13.2 ozs 1 minute: 8 5 minutes: 9
--- NOTE | 2025-10-17 15:20 | PC.NURSE ---
#1 of LR/Pitocin IV started in OB OR by Denise Awad CRNA, more than 900ml volume left in bag when entering room 462.
[2025-10-17] MEDS: OXYTOCIN in NS 20 units 20 UNIT/1,000 ML BAG 125 UNIT IV (23:10)
[2025-10-18] MEDS: KETOROLAC INJ 30 MG/ML VIAL IVP (01:09)
[2025-10-18 03:44] VITALS: BP 119/78; PULSE 80; RESP 18; TEMP 36.9; O2SAT 96
[2025-10-18 05:41] LABS: Basophils # (Auto) 0.1 Thou/mm3 (0.0-0.2); Basophils % (Auto) 0 % (0-2.5); Eosinophils # (Auto) 0.1 Thou/mm3 (0.0-0.5); Eosinophils % (Auto) 1 % (0-10); Hematocrit 35.0 % (36.0-46.0); Hemoglobin 11.7 g/dL (12.0-16.0); Immature Granulocytes Auto 0.04 Thou/mm3 (0.00-0.00); Lymphocytes # (Auto) 2.1 Thou/mm3 (1.0-4.8); Lymphocytes % (Auto) 17 % (10-50); Mean Corpuscular HGB Conc 33.4 g/dl (31.0-37.0); Mean Corpuscular Hemoglobin 28.3 pg (25.0-35.0); Mean Corpuscular Volume 85 fL (80-100); Monocytes # (Auto) 1.1 Thou/mm3 (0.0-0.8); Monocytes % (Auto) 9 % (0-12); Neutrophils # (Auto) 9.3 Thou/mm3 (1.8-7.7); Neutrophils % (Auto) 73 % (37-80); Nucleated Red Blood Cell # 0.00 Thou/mm3 (0.00-0.00); Nucleated Red Blood Cell % 0 /100 WBC (0); Platelet Count 216 Thou/mm3 (140-440); RDW Standard Deviation 45.0 fL (36.4-46.3); Red Blood Count 4.14 Miln/mm3 (4.00-5.20); White Blood Count 12.7 Thou/mm3 (3.6-11.0)
[2025-10-18 08:00] VITALS: BP 141/95; PULSE 92; RESP 18; TEMP 36.8; O2SAT 97
--- NOTE | 2025-10-18 08:37 | PD.LDPPPRG ---
Subjective Subjective Interval history: Delivery type: Patient doing well this morning. No acute complaints. Ambulating, tolerating p.o., and voiding without difficulty. HTN/Pre-E screen negative: No CP, SOB, CRUZ, visual changes, RUQ pain. : Yes Lochia: diminishing Bowel: Flatus + / BM + UOP: Adequate Exam Vital Signs Temp Pulse Resp BP Pulse Ox O2 Del Method 98.4 F 80 18 119/78 96 Room Air 10/18/25 03:44 10/18/25 03:44 10/18/25 03:44 10/18/25 03:44 10/18/25 03:44 10/18/25 03:44 Constitutional Constitutional: no acute distress Routine HEENT Exam Head: Present normocephalic and atraumatic Eye: Present EOMI and PERRL ENT: Present mucous membranes moist Routine Neck Exam Neck: Present supple and trachea midline Routine Respiratory Exam Respiratory: Present chest non-tender, lungs clear, normal breath sounds and no resp distress Routine Cardiovascular Exam Cardiovascular: Present RRR Routine Abdominal Exam Abdominal: Present soft and normoactive bowel sounds Routine Extremities Exam Extremities: Present full ROM Routine Skin Exam Skin: Present intact, dry and warm Routine Neurological Exam Neurological: Present alert, oriented X3 and CN II-XII intact Routine Psychiatric Exam Psychiatric: Present normal affect and normal thought process Objective Labs 10/18/25 05:23 Labs: Laboratory Results - last 24 hr 10/17/25 10/18/25 11:04 05:23 WBC 7.9 12.7 H D RBC 4.75 4.14 Hgb 13.0 11.7 L Hct 40.4 35.0 L MCV 85 85 MCH 27.4 28.3 MCHC 32.2 33.4 RDW Std Deviation 44.4 45.0 Plt Count 264 216 D Neut % (Auto) 66 73 Lymph % (Auto) 25 17 Dewey % (Auto) 7 9 Eos % (Auto) 1 1 Baso % (Auto) 1 0 Neut # (Auto) 5.2 9.3 H Lymph # (Auto) 2.0 2.1 Dewey # (Auto) 0.6 1.1 H Eos # (Auto) 0.1 0.1 Baso # (Auto) 0.0 0.1 Immature Gran # (Auto) 0.03 H 0.04 H Absolute Nucleated RBC 0.00 0.00 Immature Gran % 0 0 Nucleated RBC % 0 0 PT 10.5 INR 1.0 APTT 30.5 Fibrinogen 679 H* Syphilis Serology Nonreactive Blood Type B Positive Antibody Screen NEGATIVE Blood Bank Wristband ID Yes Assessment & Plan Problem List (1) Pre-existing essential hypertension complicating , third trimester: Status: Acute (2) Previous section: Status: Acute (3) Pulmonary embolism: Status: Acute Assessment and plan: History of pulmonary embolism in the past, resume Lovenox tomorrow morning (4) delivery delivered: Status: Acute Assessment and plan: 1. Continue routine /post-op care 2. Labs reviewed, cbc appropriate 3. Remove dressing/King 4. Encourage to ambulate, shower 5. Encourage PO intake, breast feeding Time Spent With Patient Time: Total time spent is greater than 50% in coordination of care (as documented) at patient's floor/unit and/or counseling patient:
[2025-10-18] MEDS: DOCUSATE SOD 100 MG CAPSULE PO (08:43)
[2025-10-18 12:00] VITALS: BP 138/75; PULSE 84; RESP 16; TEMP 37; O2SAT 98
[2025-10-18 16:00] VITALS: BP 125/84; PULSE 98; RESP 19; TEMP 36.6; O2SAT 96
[2025-10-18] MEDS: IBUPROFEN TAB 400 MG TABLET 800 MG PO (18:18)
[2025-10-18 21:15] VITALS: BP 124/65; PULSE 85; RESP 14; TEMP 36.6; O2SAT 97
[2025-10-19 03:41] VITALS: BP 118/75; PULSE 81; RESP 16; TEMP 36.4; O2SAT 96
[2025-10-19 08:00] VITALS: BP 109/72; PULSE 85; RESP 16; TEMP 36.7; O2SAT 98
[2025-10-19] MEDS: HYDROcodone/APAP 5/325 TABLET 1 TAB PO (08:39)
[2025-10-19] MEDS: DOCUSATE SOD 100 MG CAPSULE PO (08:39)
[2025-10-19] MEDS: ENOXAPARIN SOD INJ 40 MG/0.4 ML SYRINGE SC (08:39)
--- NOTE | 2025-10-19 08:48 | ESDS_ITS ---
DS: Providers Provider Date of admission: 10/17/25 10:01 Primary care physician: Obed Stanford MD Admitting Provider: Wilber Anderson MD Attending Provider on Admission: Wilber Anderson MD Consults: 10/17/25 15:55 Referral Routine Comment: Attending Provider on DC: Mary Jo Mg MD Discharging Provider: Mary Jo Mg MD DS: Diagnosis Discharge Diagnosis (1) delivery delivered: Status: Acute (2) Pre-existing essential hypertension complicating , third trimester: Status: Acute (3) Pulmonary embolism: Status: Acute (4) Previous section: Status: Acute Problem List Completed Was Problem List Reviewed/Reconciled?: Yes Summary/Hosp Course Brief History: 25-year-old 3 para 2 at 37 weeks and 4 days with chronic hypertension and history of pulmonary embolism on Lovenox during presents for scheduled repeat low-transverse section. On presentation patient reports moderate contractions, denies any leakage of fluid or vaginal bleeding. Patient received care at [facility] and she was comanaged with maternal- medicine. She was prescribed heparin at 35 weeks but was not covered by her insurance and we were unable to get a prior authorization and spite of all efforts. Patient continued to take her Lovenox which she discontinued 48 hours ago. She has a history of 2 prior C-sections in 2019 and then in 2020. All her records were reviewed as scanned in. Peripartum Data Delivery Method: Low Transverse Episiotomy Description: None Laceration Description: see Delivery Summary Procedures: Procedures Operation Date: 10/17/25 14:15 Actual Procedure Side Surgeon p w/tubal OB Wilber Anderson MD complications: none Status at Discharge Cognitive/behavioral status at discharge: Patient has no/ complaints Headache no Blurry vision no Chest pain no Palpitations no Shortness of breath no Nausea or vomiting or constipation no Back pain no Dysuria no Dizziness no calf pain no She is voiding spontaneously after catheter removal yes Passing flatus yes Lochia minimal yes alertx3 Functional status at discharge: independent ambulation Overall status at discharge: patient is progressing back to baseline Time Spent with Patient Time attestation: Total time spent providing and/or coordinating discharge services: Time spent: Less than 30 minutes Specific discharge activities: follow up in 1 week Exam Vital Signs Temp Pulse Resp BP Pulse Ox O2 Del Method 97.6 F 81 16 118/75 96 Room Air 10/19/25 03:41 10/19/25 03:41 10/19/25 03:41 10/19/25 03:41 10/19/25 03:41 10/19/25 03:41 Narrative Exam alert x3 chest clear CVS RRR NO thyromegaly Uterus is nontender Uterus is firm/ appropriate size Just below the umbilicus Bowel sounds present Abdomen soft no hernias noted/no CVAT Incision CDI No drainage Appropriately tender No calf tenderness Edema mild Discharge Plan Plan Patient Disposition: HOME (Self Care) Patient condition on transfer: Stable Prescriptions/Referrals Prescriptions/Med Rec: New hydrocodone-acetaminophen 5-325 mg tablet 1 tab PO Q6H MDD 4 PRN (Reason: pain) 5 Days Qty: 20 0RF docusate sodium [Stool Softener] 100 mg capsule 100 mg PO QDAY 30 Days Qty: 30 0RF ibuprofen 600 mg tablet 600 mg PO Q6H MDD 4 PRN (Reason: fever or pain) 10 Days Qty: 40 0RF enoxaparin [Lovenox] 40 mg/0.4 mL syringe 40 mg subcut QDAY 60 Days Qty: 24 2RF Continued Vitamin Plus Low Iron 27 mg iron- 1 mg tablet 1 tab PO QDAY 90 Days Qty: 90 6RF Referrals: Obed Stanford MD [Primary Care Provider, Family Practice] Wilber Anderson MD [Physician, FOOD WRITER] Patient/Caregiver Discharge Instructions Discharge Activity: activity as tolerated Other Discharge Activity Instructions:: Follow up with OB in 1 week pelvic rest x 6 weeks continue Lovenox till 12 weeks per M Other Discharge Diet Instructions: regular Education Materials: Breast Care After , After a , C Section Dc Print Language: Jamaican Stand Alone Forms: Leatha Award Info., Patient Portal Info Letter, DC from Surgery Discharge Order Discharge Orders: Discharge (Routine); Ordered 10/19/25 Ordered By: Mary Jo Mg Planned Discharge Date 10/19/25
== END 2025-10-19 11:43 | disposition home or self-care (01) | DRG 539 ==
LOC: S4SX 14:48 → S4NX 14:58
PROVIDERS: Nurse Anesthetist, Certified Registered; Admitting Provider Obstetrics & Gynecology; PCP Family Medicine; Visit Provider Obstetrics & Gynecology
PROC: 0UL70ZZ Occlusion of Bilateral Fallopian Tubes, Open Approach (ICD-10-PCS; CPT 59514; principal; 2025-10-17 14:00)
DX: O34.211 Maternal care for low transverse scar from previous cesarean delivery (principal); Z37.0 Single live birth; Z3A.37 37 weeks gestation of pregnancy; O69.81X0 Labor and delivery complicated by cord around neck, without compression, not applicable or unspecified; O10.02 Pre-existing essential hypertension complicating childbirth; Z30.2 Encounter for sterilization; Z86.711 Personal history of pulmonary embolism; Z79.01 Long term (current) use of anticoagulants
CPT/HCPCS: 36415; 85025; 85384; 85610; 85730; 86780; 86850; 86900; 86901; A4217; A4649; J0689; J1650; J1885; J2210; J2274; J2590; J2765; J3010; J3490; J7120; A9270; J2270

== ENCOUNTER 2025-10-30 09:25 | Outpatient (AMB) | payer MEDICAID, SELFPAY ==
[2025-10-30 09:42] VITALS: BP 130/82; PULSE 83; RESP 16; TEMP 36.5; O2SAT 98; BMI 43.5
--- NOTE | 2025-10-30 09:42 | AMBOBPPN_ITS ---
Vital Signs 10/30/25 09:42 Height 1.63 m Height Method Stated Weight 115.779 kg Weight Measurement Method Standing Scale BMI 43.5 BP 130/82 Blood Pressure Source Automatic Cuff Blood Pressure Location Left Upper Arm Position Sitting Respiration 16 Pulse 83 Pulse Source Monitor Temp 97.7 F Temp Source Oral Pulse Oximetry (%) 98 Oxygen Delivery Method Room Air Allergies/Home Meds Allergies & Medications Allergies No Known Allergies Allergy (Verified 10/30/25 09:43) Medication Reconciliation vitamins with calcium no.72-iron 27 mg-folic acid 1 mg tablet ( Vitamins Plus Low Iron) 1 tab PO QDAY 90 days #90 tabs 04/09/25 [Rx Confirmed 10/30/25] docusate sodium 100 mg capsule (Stool Softener) 100 mg PO QDAY 30 days #30 caps 10/18/25 [Rx Confirmed 10/30/25] enoxaparin 40 mg/0.4 mL subcutaneous syringe (Lovenox) 40 mg (0.4 mL) subcut QDAY 60 days #24 mL 10/18/25 [Rx Confirmed 10/30/25] Intake Visit Data Collection New Patient or Established: Established Patient (seen at [facility] within 3 years) Reason for Visit:: Seen by Clinical Staff ONLY (RN/MA): No Licensed Surveyor Required: No Do You Feel Safe at Home: Yes Authorities Contacted: N/A PCP or OBGYN visit in last 3 months: Yes Hx Now: No Are you currently on any form of Control: No Pain Present Currently: No Pain Scale Used: [place]/Numerical Pain scale:: 0 Smoking Status Smoking Status: Never smoker Immunizations Flu Vaccine in the Last 12 Months: Yes Flu Vaccine Exclusion Criteria: Already Received [employer]: Past Medical History Past Medical History: No Hx Neurological Disorders, No Hx Breast Cancer, Yes Hx Cardiac Disorders, Yes Hx Hypertension (CHTN NO MEDS), No Hx Cancer, No Hx Blood Disorders, No Hx Anemia, No Hx Gastrointestinal Disorders, No Hx Renal Disease, No Hx Diabetes Mellitus Type 1 and No Hx Diabetes Mellitus Type 2 Questionnaires Covid-19 Vaccine Questionnaire Has patient been vacinated for Covid-19 Have you been vacinated for Covid-19: Yes Social History Living Situation History Lives With: Family Housing: Apartment Tobacco History Smoking Status: Never smoker Second Hand Smoke Exposure: No Alcohol History Alcohol Intake: Never Domestic Abuse History Do You Feel Safe at Home: Yes EPDS - PP Depression Screening Quinter Pospartum Depression Screen I have been able to laugh and see the funny side of things: (1) Not quite so much now I have looked forward with enjoyment to things: (1) Rather less than I used to I have blamed myself unnecessarily when things went wrong: (2) Yes, some of the time I have been anxious or worried for no good reason: (2) Yes, sometimes I have felt scared or panicky for no very good reason: (2) Yes, sometimes Things have been getting on top of me: (2) Yes, sometimes I haven't been coping as well as usual I have been so unhappy that I have had difficulty sleeping: (1) Not very often I have felt sad or miserable: (2) Yes, quite often I have been so unhappy that I have been crying: (2) Yes, quite often The thought of harming myself has occurred to me: (0) Never EPDS completed yes Care OB Visit Log OB Flowsheet Initial Weight: Not Recorded Date -?-?-?-?-?-?-?-?-?-?-?-?- EGA Weight BP Alb Glu CTX Pres Fundal ht FHR Mov Dilation Station Effacement Hx Notes Visit Note 03/19/25 -?-?-?-?-?-?-?-?-?-?-?-?- 7w 2d 119.068 kg 128/84 absent 8 absent 24 yo prev c/s 2. for oBI. no complaints of SAB, c/o Nausea. history of blood clot in lungs, taking Eliquis. rx given for Dicligesis bid #60. start PNV daily, ob panel ordered, sono scheduled at [facility] for viability and dates, sab precaution discussed, RTC 4 week with OB,ER precaution given 04/09/25 -?-?-?-?-?-?-?-?-?-?-?-?- 10w 2d 119.918 kg 130/86 at 10w2d gestation, presents for routine care. History notable for 2 prior C-sections, pulmonary embolism, rectal bleeding on anticoagulation, and pyelonephritis. Reports ongoing nausea (hyperemesis) but has not picked up Diclegis; previously prescribed Tigan. Stopped Eliquis upon confirmation of . Reports hand swelling; denies CTX/LOF/VB. FHT 158 bpm. LMP 01/27/25, KAL 11/03/25. Labs reviewed: negative infectious panel, Hgb 13. Plan: Schedule formal ultrasound to confirm ge stational age Genetic testing panel + kidney/liver fun ction labs Diclegis prescription sent; continue Tig an as needed vitamins sent to pharmacy Order coagulation profile Urgent MFM referral for anticoagulation planning Discuss Lovenox if indicated Encourage hydration and small, frequent meals Avoid ibuprofen; limit Tylenol to 1/day Monitor edema Routine follow-up in 4 weeks Laboratory, Imaging, and Diagnostic Test Results - Date: 03/22/2025 - Hepatitis B: Negative - Hepatitis C: Negative - RPR: Non-reactive - Rubella: Immune - Blood group: B positive - Antibody screen: Negative - HIV: Negative - Gonorrhea-chlamydia: Negative - Hemoglobin: 13 g/dL - Drug screen: Negative - Ultrasound (date not specified): - heart rate: 158 bpm - Estimated gestational age: 9 weeks a nd 4 days heart tones: 158 bpm. 05/07/25 -?-?-?-?-?-?-?-?-?-?-?-?- 14w 2d 119.862 kg 128/78 at 14w2d. Hx 2 prior C/S, recent PE on hormonal contraceptives. Unilateral CRUZ x2 days. BMI 45. On Diclegis/Phenergan for nausea. MFM consult 05/02, US normal, male fetus. Coag studies normal except low antithrombin antigen. NIPT negative Lovenox SQ daily entire + 6w , dietitian consult for obesity, extra-strength Tylenol for CRUZ, avoid hormonal BC, FU 4w. 05/16/25 -?-?-?-?-?-?-?-?-?-?-?-?- 15w 4d 119.805 kg 123/78 absent 15w4d, on Lovenox for prior PE, c/o large painful bruise and bump at recent abdominal injection site with reported med leakage. Denies bruising elsewhere. PE: localized bruising with palpable bump. Plan: reviewed S C technique?partial needle insertion, slow inject, rotate sites, avoid vasculature, hold skin taut. May switch to thigh if needed. RTC 05/31; sooner if worsens. 06/18/25 -?-?-?-?-?-?-?-?-?-?-?-?- 20w 2d 88.961 kg 127/78 absent cephalic 31 145 active - Patient reports recent ER visit 2 days ago for remedios-umbilical abdominal pain - Workup was negative, including ultrasound within normal limits - Ongoing nausea, not improving - Denies cramping or spotting - Reports active movement - Small bruises at Lovenox injection sit es, improved from previous visit - Notes sensitivity to certain foods dur ing - Attributes recent stomach upset to d ietary changes - Denies any other new symptoms or concerns - Follow up appointment at [facility] this month - Return for next visit in 4 we eks - Complete glucose tolerance test (fasti ng) 1-2 days before next appointment - Continue Lovenox injections as prescri bed 07/24/25 -?-?-?-?-?-?-?-?-?-?-?-?- 25w 3d 121.336 kg 120/74 absent cephalic 26 14 9 active - Baby is active - No specific complaints or concerns m entioned - Recent healthcare interactions: - Attended a [facility] appoint ment in June (around the ) - Scheduled for another ultrasound on the due to inability to visualize baby's fingers in previous scan - Schedule 3-hour glucose tolerance test - Continue Lovenox as prescribed - Follow up in 2 weeks - Attend scheduled ultrasound appointmen t at [facility] on August 12 08/07/25 -?-?-?-?-?-?-?-?-?-?-?-?- 27w 3d 121.279 kg 127/85 absent cephalic 28 15 0 active No contractions, LOF, VB and reports good FM. Denies CRUZ, VC, and epigastric pain. - She had an abnormal one-hour glucose t olerance test but her subsequent 3-hour glucose tolerance test was normal. - She had questions about her due date a nd delivery timing related to her medical history. - Her MFM appointment was moved to August 20. - Return for follow-up visit in 2 weeks - M appointment rescheduled to August 20 - Potential delivery at 37 weeks due to lupus and other comorbidities 08/23/25 -?-?-?-?-?-?-?-?-?-?-?-?- 29w 5d 122.64 kg 122/80 absent cephalic 30 145 active - She has lupus anticoagulant syndrome (APS) and is currently on Lovenox 40 milligrams daily since August 19, 2025. - Patient is adherent to her anticoagula tion therapy as prescribed. - She has a history of prior se ctions and is scheduled for repeat delivery at 37 weeks on October 17 at 12:30 pm. - Last MF consultation recommended 37-w chilkat delivery with heparin bridge per protocol. - Continue Loven ox 40 mg daily for lupus anticoagulant syndrome - Scheduled repeat section on at 12:30 pm at 37 weeks 2 days gestation - Heparin bridge per protocol as recomme nded by MFM - Labs to be done today - [facility] - Follow up in 2 weeks 09/09/25 -?-?-?-?-?-?-?-?-?-?-?-?- 32w 1d 123.547 kg 127/83 absent cephalic 32 15 2 active - She had an [facility] ultrasound on August 20, 2025 which showed the baby weighing 3 pounds 15 ounces at the 97th percentile. - Patient is currently on Lovenox inject ions with a planned transition to Heparin at 35 weeks gestation. - She reports feeling movements mo re on one side. - Patient appears to be adhering to her current Lovenox injection r stephanie. - Switch from Lovenox to heparin at 35 weeks gestation - Plan early section at 37 week s gestation - Group B streptococcus culture at 36 we eks - Follow up in 2 weeks 10/01/25 -?-?-?-?-?-?-?-?-?-?-?-?- 35w 2d 123.491 kg 124/83 absent cephalic 35 14 5 active - Patient is currently on Lovenox anticoagulation therapy. - No specific complaints or symptoms rep orted during this visit. - Patient appears to be adhering to current medication regimen with Lovenox. - Discontinue Lovenox and switch to heparin injection due to proximity to delivery (35 weeks gestation) to reduce hemorrhaging risk during delivery - Patient to crop picker heparin prescriptio n from pharmacy; continue Lovenox until new medication is obtained - Start heparin the morning after obtain ing prescription - administer twice daily (12-hour duration of action) - Continue heparin until delivery - Resume Lovenox for 6 weeks - Schedule follow-up appointment in one week at 36 weeks gestation - Obtain Group B Streptococcus culture a t next visit (routine screening at 36 weeks) - Weekly appointments from this point jose angel sullivan - Contact office if insurance issues sherice se with heparin prescription 10/15/25 -?-?-?-?-?-?-?-?-?-?-?-?- 37w 2d 124.908 kg 125/85 absent cephalic 38 15 6 active - She reports the baby is active with no contractions or other issues. - She denies bad headaches, bad stomach pain, or decreased movement. - She has been taking Lovenox as prescri bed but will discontinue it today per instructions. - She had a recent hospital visit yester day where labs were performed and results were reportedly fine. - She reports having plenty of Lovenox medication available. - section scheduled for at 12:30 PM, check-in at 10:00 AM - Discontinue Lovenox today and tomorrow , resume on Tuesday post-delivery - NPO after 2:00 AM on day of surgery (8 -hour fasting requirement) - Continue Lovenox for 6 weeks post-deli very then discontinue - Refill Lovenox prescription to same armacy - Return to hospital immediately if chiquita re headache, severe abdominal pain, or decreased movement occurs - Group B Strep vaginal culture obtained KAL Calculator Estimated Delivery Date Method Current WG Current Estimate 11/03/25 LMP (Certain) 41w 2d Other Estimates 11/10/25 Ultrasound #1 40w 2d Specific Issue/Plans Vital Signs - BMI: 45 kg/m? Laboratory, Imaging, and Diagnostic Test Results - Date: 04/10/2025 (reported on 04/22/2025) - Lupus panel: Within normal limits - Lupus anticoagulant: Not detected - Von Willebrand factor: Within normal limits - Factor 8: 131 - INR: 1.0 - Prothrombin time: 10.7 seconds - Antithrombin: 3.99 - Antithrombin antigen: Low - APTT: 29 (within normal limits) Notes Visit Date: 09/09/25 Last Updated by: Wilber Anderson MD - Date: 08/20/2025 - [facility] ultrasound: weight 3 pounds 15 ounces (97th percentile) Visit Date: 07/24/25 Last Updated by: Wilber Anderson MD - One-hour glucose tolerance test: 147 mg/dL (cutoff: 140 mg/dL) - Hemoglobin A1c: 5.8% HPI Interval History: Bhakti Cullen presents for a post-operative visit following a repeat section performed on October 17, 2025. She reports that everything is going well post-operatively. She had resumed Lovenox anticoagulation therapy as prescribed, which had been held perioperatively for her surgery. She is currently without any reported difficulties. She has a history of pulmonary embolism during a prior for which she was previously on Lovenox anticoagulation therapy. The patient inquired about the duration of anticoagulation therapy and was informed she would continue for 6 weeks post- section, until November 28, after which laboratory studies would be obtained. The patient asked about when she could discontinue her current abdominal binder and transition to tighter supportive garments, indicating her interest in progr essing her recovery. She is following up with pediatric care at the clinic for her . She has a history of at least one prior section. The patient recently delivered via repeat section on October 17, 2025. She is currently and lives with her child. The patient has been taking Lovenox, which was held for surgery and has been resumed post-operatively. ROS: Negative except as stated above, limited to [employer] and pertinent complaints. Exam Narrative Physical exam: - Abdominal: section incision appears well-healed with good skin approximation. Office Procedures [facility] Clinic LOC & Office Proc's Nursing/Assessment Patient Status: Established Patient OB Clinic Nursing Assessment: Medication Reconciliation, Update PMH in EMR and Vital Signs OB Clinic Coordination of Care: Complex Care and Chronic Disease 1-5, Consent,records obtained, informed consent, Education Simp Pt/Fam, 1 Ins Auth orization, Lab and Imaging orders, Results/Orders obtained and Staff clarify orders Established Patient Charge Established Patient Point Assignment: 120 Established Patient Point Charge: EP Level 4 (120-155) Assessment & Plan Diagnosis / Problem List (1) delivery delivered: Status: Acute (2) Pre-existing essential hypertension complicating , third trimester: Status: Acute Plan Post-operative section care: - Patient is recovering well from repeat section performed on October 17, 2025. - Surgical incision appears to be healing appropriately with good skin approximation and no signs of complications noted on examination. Plan: - Continue current wound care with soap and water cleansing during showers. - Discontinue use of current abdominal binder and transition to elastic support garment for improved comfort and support. - Avoid placing bandages or dressings on incision site. - Follow-up visit scheduled after November 28. - Laboratory studies to be obtained after completion of anticoagulation therapy. Pulmonary embolism history requiring anticoagulation: - Patient has history of pulmonary embolism during prior and is currently on Lovenox therapy. - Lovenox was appropriately held perioperatively for section and has been resumed postoperatively. Plan: - Continue Lovenox for 6 weeks total duration from section date. - Discontinue Lovenox on November 28. - Obtain laboratory studies after completion of anticoagulation therapy. : - Patient is currently without reported complications. Plan: - Continue as tolerated. - Pediatric care established with Dr. Echeverria at clinic.
== END 2025-10-30 10:01 | disposition home or self-care (01) ==
LOC: HODSOBC 09:25
PROVIDERS: PCP Family Medicine; Referring Provider Family Medicine; Supervising Provider Obstetrics & Gynecology; Visit Provider Obstetrics & Gynecology
DX: Z39.2 Encounter for routine postpartum follow-up (principal); O10.93 Unspecified pre-existing hypertension complicating the puerperium; Z86.711 Personal history of pulmonary embolism; Z79.01 Long term (current) use of anticoagulants; Z39.1 Encounter for care and examination of lactating mother
CPT/HCPCS: 99214; G0463